=== PATIENT | male | born 1955 | race Caucasian/White ===

== ENCOUNTER 2019-05-30 11:31 | Outpatient (CLI) | payer MEDICAID, SELFPAY ==
[2019-05-30 11:56] LABS: Basophils # 0.2 10^3/uL (0.0-0.1); Basophils % 0.9 %; Eosinophils # 1.8 10^3/uL (0.0-0.8); Eosinophils % 10.3 %; Hematocrit 48.6 % (42.0-52.0); Hemoglobin 14.9 g/dL (11.7-16.6); Lymphocytes # 1.7 10^3/uL (0.8-4.8); Lymphocytes % 10.2 %; Mean Corpuscular HGB Conc 30.7 g/dL (30.0-36.0); Mean Corpuscular Hemoglobin 21.2 pg (28.0-34.0); Monocytes # 1.1 10^3/uL (0.2-0.9); Monocytes % 6.3 %; Neutrophils # 12.2 10^3/uL (1.8-7.7); Neutrophils % 71.5 %; Nucleated Red Blood Cells % 0 %; Platelet Count 725 10^3/cmm (130-400); Red Blood Count 7.04 10^6/uL (4.1-5.3); Red Cell Distribution Width 20.7 % (12.1-15.1)
--- NOTE | 2019-05-30 13:59 | ONC FU_ITS ---
Dr. Sears follow up note Patient: Fransisco Denis Unit #: [id number]: 1955 Dicatated By: Niya Sears M.D.Date of Visit:May 30, 2019 Onc Med Follow-up/Prog Note History of Present Illness: Mr. Fransisco Denis 64-year-old gentleman with history of leukocytosis for 12 years and now with elevated platelet count as well as hematocrit. CBC on 10/14/2016 showed white blood count 14.1 hemoglobin 17.3 hematocrit 50.9 platelet count 516,000 with elevated neutrophil count at 10.4 normal range being 1.4-6.5... Patient said, any time he would go to emergency room for is medical problems , doctors always make comment regarding his high white blood count and prescribe him antibiotics. He got more concerned when he was told about his elevated hematocrit and platelets. he said his brother has polycythemia and on chemotherapy pills and he is worried whether he has same condition. He denies any weight loss, he denies any fever chills, he denies any night sweats or peripheral lymphadenopathy. he denies any chronic sinus problem but has smoker's cough has been smoking 1 pack per day for last 40 years. he denies any hemoptysis or hematemesis. he denies any abdominal fullness. He said recently he was treated for tick bite with doxycycline which he finished 2 weeks course s/p 12 week course of Zepatier and elbavarin plus grazoprevin for hepatitis C. Interim history; patient lost follow-up, moved down to [place] to take care of his elder brother. And then he established his care there in hematology clinic where he was diagnosed with polycythemia vera and treated with phlebotomies on a regular basis as per patient his hematocrit at that time was gone up to 60. And he was getting phlebotomies every 3-4 months and the last one was done about 2 months ago. During his last visit to our clinic in October 2016, JAK2 mutation was ordered and at that time resulted came back positive for mutation which did confirm polycythemia vera. Quit smoking in April 2019. Came for follow-up, complaining of mild shortness of breath and wheezing, patient said in the past nebulizer treatment did help him but now ranout. No fever or chills no cough or sore throat. No headaches or blurred vision or double vision. No cardiac constipation. Also complaining of skin lesion in the back of neck which is a chronic problem and is concerned about skin cancer. Medications: Atorvastatin Calcium 1 Tablet (of 20 mg) Oral daily, EQ Ibuprofen 4 Tablet (of 200 mg) Oral b.i.d., Plavix 1 Tablet (of 75 mg) Oral daily Allergies: No Known Allergies. Review of Systems: Constitutional - Appetite is good, weight is stable. No fever, chills, hot flashes, or night sweats.Energy level is good, ENMT - No sinus congestion or drainage. No mouth sores. No sore throat or difficulty swallowing, Hematologic/Lymphatic - No abnormal bruising or bleeding, Respiratory - No shortness of breath. Positive for cough. No pleuritic pain, Cardiovascular - No angina pain, Gastrointestinal - No nausea or vomiting. No heartburn or acid reflux. No diarrhea or constipation. No blood in the stool or black stools, Genitourinary (M) - No dysuria or hematuria. No urinary frequency. No urgency or incontinence, Musculoskeletal - He has chronic back pain, Neurologic - No headache or dizziness, Psychiatric - No anxiety or depression. No insomnia. Vital Signs: Vitals are not available for this patient. Performance Status: 0 - Fully active, able to carry on all predisease activities without restrictions. (ECOG) Physical Examination: ENMT - . No oral exudates, ulcers, masses, thrush or mucositis. Oropharynx clear. Tongue normal, Respiratory - mild wheezing bilaterally , poor air entry, Cardiovascular - Regular rate and rhythm of heart, Abdomen - Non-tender, non-distended, Good bowel sounds. No guarding or rebound tenderness. No pulsatile masses, Extremities - no edema or rash. Lab/Imaging: Test performed on Mar 25, 2019 13:05 WBC 14.7 10 3/uL RBC 6.72 10 6/uL HGB 13.5 g/dL HCT 44.6 % MCV 66.4 fl MCH 20.1 pg MCHC 30.3 g/dl RDW 19.4 % Platelet Count 730 10 3/cmm MPV 10.6 fl Neutrophils 10.3 10 3/uL Lymphocytes 1.7 10 3/uL Monocytes 0.9 10 3/uL Eosinophils 1.7 10 3/uL Basophils 0.1 10 3/uL Neutrophil % 70.1 % Lymphocyte % 11.3 % Monocyte % 5.8 % Eosinophil % 11.2 % Basophils % 1.0 % Impression: 1.Polycythemia vera JAk2 positive, confirmed in October 2016 at that time patient moved down to [place], and established care in hematology clinic there, where he was treated with phlebotomies every 3-4 month, and as per patient, the last one was done in October 2018, now has moved back to [place]. Leukocytosis with left shift, probably due to infections like hepatitis C or chronic inflammation like peripheral vascular disease involving the right leg or chronic bronchitis/ COPD due to smoking or [id number] medication like androgen containing or idiopathic . lab workup done on 11/07/2016, showed BCR ABL negative LAP score 109 normal being 25 to 130 peripheral blood smear no abnormality seen started on hydroxyurea 500 mg by mouth daily on 05/30/2019 while continue with phlebotomies as needed chronic and heavy smoking smoke 1-2 pack a day for 40 years family history of polycythemia vera 3. Thrombocytosis probably reactive but myeloproliferative disorder cannot be ruled out 4. .Right leg pain/peripheral vascular disease involving the right leg Plain x-ray of the femur, tibia and fibula done on 11/08/2016 showed normal findings no abnormality seen 5. .Hepatitis C on 12 week course of Zepatier,elbavin plus grazoprevin 7. Presumably tick bite status post 2 weeks course of antibiotics with doxycycline 8. Chronic smoker 1-2 pack per day for 40 years 9. COPD 10. .Gallstones Plan: Discussed with patient regarding his labs white blood count 17 hemoglobin 14.9 crit 48.6 platelets 725,000 MCV 69 Clinically, patient is doing reasonably well no signs symptom due to polycythemia vera his follow-up lab shows further increase in hematocrit as patient was out of town for the last 2 months and now phlebotomies done since early last March. Discussed with patient regarding the role of cytoreduction therapy again as patient is going back and forth to [place] and missing phlebotomies. Patient said he will consider cytoreduction therapy with hydroxyurea now. At this point we'll consider starting on hydroxyurea 500 mg by mouth daily. All the side effect possible benefits associated with hydroxyurea including but not limited to mouth sore, bone marrow suppression, peripheral neuropathy, diarrhea, increased risk for skin cancers and in recent cases pulmonary toxicity. Further teaching will be done by chemotherapy nurse. At this point we'll proceed with phlebotomy with 500 mL drawn and 250 mL normal saline replacement and goal is to keep his hematocrit equal to or below 45 and he was also advised to take baby aspirin daily a used to take Plavix but then he is noncompliant. As far as skin lesion in the back of neck is concern, we will send him to general surgeon for evaluation and management. Patient return to clinic in 2 weeks with CBC. And based on that we will adjust his hydroxyurea dose.as far as mild wheezing is concern patient has history of COPD and he used to be on nebulizer. We will try nebulizer treatment hopefully that will help him and patient was advised to see primary care physician for further management. And he was also advised in case there is a worsening of symptoms he need to go to hospital for evaluation. Signed By: Niya Sears M.D. <<Signature on File>>
[2019-05-30] MEDS: ipratropium-albuterol 3 mL Neb INHALATION (14:00)
[2019-05-30] MEDS: sodium chloride 0.9% 250 ML IV (14:15)
== END 2019-05-30 11:32 | disposition home or self-care (01) ==
LOC: ONCMED 11:31
PROVIDERS: Family Provider Internal Medicine; PCP Internal Medicine; Visit Provider Internal Medicine Hematology & Oncology
DX: D45 Polycythemia vera (principal); L98.9 Disorder of the skin and subcutaneous tissue, unspecified; I73.9 Peripheral vascular disease, unspecified; B19.20 Unspecified viral hepatitis C without hepatic coma; J44.9 Chronic obstructive pulmonary disease, unspecified; K80.80 Other cholelithiasis without obstruction; Z79.02 Long term (current) use of antithrombotics/antiplatelets; Z79.899 Other long term (current) drug therapy; Z79.51 Long term (current) use of inhaled steroids; Z87.891 Personal history of nicotine dependence
CPT/HCPCS: 36415; 85025; 99195; 99214; J7050

== ENCOUNTER 2019-06-14 08:17 | Outpatient (CLI) | payer MEDICAID, SELFPAY ==
[2019-06-14 08:52] LABS: Basophils # 0.1 10^3/uL (0.0-0.1); Basophils % 0.8 %; Eosinophils # 1.1 10^3/uL (0.0-0.8); Eosinophils % 7.5 %; Hematocrit 50.1 % (42.0-52.0); Hemoglobin 15.2 g/dL (11.7-16.6); Lymphocytes # 1.4 10^3/uL (0.8-4.8); Lymphocytes % 9.9 %; Mean Corpuscular HGB Conc 30.3 g/dL (30.0-36.0); Mean Corpuscular Hemoglobin 21.2 pg (28.0-34.0); Mean Corpuscular Volume 69.9 fL (80-94); Mean Platelet Volume 10.3 fL (7.4-10.4); Monocytes # 0.8 10^3/uL (0.2-0.9); Monocytes % 5.7 %; Neutrophils # 10.8 10^3/uL (1.8-7.7); Neutrophils % 75.5 %; Nucleated Red Blood Cells % 0 %; Platelet Count 454 10^3/cmm (130-400); Red Blood Count 7.17 10^6/uL (4.1-5.3); Red Cell Distribution Width 21.4 % (12.1-15.1); White Blood Count 14.3 10^3/uL (4.0-10.0)
--- NOTE | 2019-06-14 11:02 | ONC FU_ITS ---
Dr. Sears follow up note Patient: Fransisco Denis Unit #: [id number]: 1955 Dicatated By: Niya Sears M.D.Date of Visit:Jun 14, 2019 Onc Med Follow-up/Prog Note History of Present Illness: Mr. Fransisco Denis 64-year-old gentleman with history of leukocytosis for 12 years and now with elevated platelet count as well as hematocrit. CBC on 10/14/2016 showed white blood count 14.1 hemoglobin 17.3 hematocrit 50.9 platelet count 516,000 with elevated neutrophil count at 10.4 normal range being 1.4-6.5... Patient said, any time he would go to emergency room for is medical problems , doctors always make comment regarding his high white blood count and prescribe him antibiotics. He got more concerned when he was told about his elevated hematocrit and platelets. he said his brother has polycythemia and on chemotherapy pills and he is worried whether he has same condition. He denies any weight loss, he denies any fever chills, he denies any night sweats or peripheral lymphadenopathy. he denies any chronic sinus problem but has smoker's cough has been smoking 1 pack per day for last 40 years. he denies any hemoptysis or hematemesis. he denies any abdominal fullness. He said recently he was treated for tick bite with doxycycline which he finished 2 weeks course s/p 12 week course of Zepatier and elbavarin plus grazoprevin for hepatitis C. Interim history; patient lost follow-up, moved down to [place] to take care of his elder brother. And then he established his care there in hematology clinic where he was diagnosed with polycythemia vera and treated with phlebotomies on a regular basis as per patient his hematocrit at that time was gone up to 60. And he was getting phlebotomies every 3-4 months and the last one was done about 2 months ago. During his last visit to our clinic in October 2016, JAK2 mutation was ordered and at that time resulted came back positive for mutation which did confirm polycythemia vera. Quit smoking in April 2019. Started on hydroxyurea 500 mg daily on 05/30/2019 and continue with phlebotomies to keep hematocrit equal to or less than 45. Came for follow-up, complaining of cough with yellowish phlegm and sinus pressure, mild wheezing still smoking about pack a day. Occasionally low-grade fever. No hemoptysis or hematemesis no nausea or vomiting. No headaches. No melena or hematochezia, no jaundice. Tolerating hydroxyurea 500 mg by mouth daily well and phlebotomies every 2 weeks. Medications: Atorvastatin Calcium 1 Tablet (of 20 mg) Oral daily, EQ Ibuprofen 4 Tablet (of 200 mg) Oral b.i.d., Hydroxyurea 1 Tablet (of 500 mg) Oral b.i.d., Plavix 1 Tablet (of 75 mg) Oral daily Allergies: No Known Allergies. Review of Systems: Review of Systems is not available for this patient. Vital Signs: Vitals are not available for this patient. Performance Status: 0 - Fully active, able to carry on all predisease activities without restrictions. (ECOG) Physical Examination: ENMT - No oral exudates, ulcers, masses, thrush or mucositis. Oropharynx clear. Tongue normal, Respiratory - mild wheezing bilaterally, poor air entry, Cardiovascular - Regular rate and rhythm of heart, Abdomen - Non-tender, non-distended,Good bowel sounds. No guarding or rebound tenderness. No pulsatile masses, Extremities - no edema. Lab/Imaging: Test performed on May 30, 2019 11:35 WBC 17.0 10 3/uL RBC 7.04 10 6/uL HGB 14.9 g/dL HCT 48.6 % MCV 69.0 fL MCH 21.2 pg MCHC 30.7 g/dL RDW 20.7 % Platelet Count 725 10 3/cmm MPV 10.0 fL Neutrophils 12.2 10 3/uL Lymphocytes 1.7 10 3/uL Monocytes 1.1 10 3/uL Eosinophils 1.8 10 3/uL Basophils 0.2 10 3/uL Neutrophil % 71.5 % Lymphocyte % 10.2 % Monocyte % 6.3 % Eosinophil % 10.3 % Basophils % 0.9 % Impression: 1.Polycythemia vera JAk2 positive, confirmed in October 2016 at that time patient moved down to [place], and established care in hematology clinic there, where he was treated with phlebotomies every 3-4 month, and as per patient, the last one was done in October 2018, now has moved back to [place]. Leukocytosis with left shift, probably due to infections like hepatitis C or chronic inflammation like peripheral vascular disease involving the right leg or chronic bronchitis/ COPD due to smoking or [id number] medication like androgen containing or idiopathic . lab workup done on 11/07/2016, showed BCR ABL negative LAP score 109 normal being 25 to 130 peripheral blood smear no abnormality seen started on hydroxyurea 500 mg by mouth daily on 05/30/2019 while continue with phlebotomies as needed chronic and heavy smoking smoke 1-2 pack a day for 40 years family history of polycythemia vera 3. Thrombocytosis probably reactive but myeloproliferative disorder cannot be ruled out 4. .Right leg pain/peripheral vascular disease involving the right leg Plain x-ray of the femur, tibia and fibula done on 11/08/2016 showed normal findings no abnormality seen 5. .Hepatitis C on 12 week course of Zepatier,elbavin plus grazoprevin 7. Presumably tick bite status post 2 weeks course of antibiotics with doxycycline 8. Chronic smoker 1-2 pack per day for 40 years 9. COPD 10. .Gallstones Plan: Discussed with patient regarding his labs white blood count 14.3 hemoglobin 15.2 crit 50.1, platelets 454,000 compared to 725,000 on 05/30/2019, now on hydroxyurea. Clinically, patient is doing reasonably well now complaining of upper respiratory infection related symptoms and progressive mild wheezing, patient continued to smoke. At this point we will start him on Augmentin 500 mg twice a day for 1 week along with Medrol Dosepak, patient was advised in case there is a worsening of symptoms and will have to go to hospital for evaluation. In the meantime continue with phlebotomy with 500 mL and 250 mL normal saline replacement. Patient is tolerating hydroxyurea 500 mg by mouth daily and follow-up labs done today shows normalization of thrombocytosis and improvement in leukocytosis. We'll continue to monitor return to clinic in 2 weeks for phlebotomy and I will see him back in one month with CBC.Patient was advised to quit smoking and he was offered any assistance he may need. Signed By: Niya Sears M.D. <<Signature on File>>
== END 2019-06-14 08:18 | disposition home or self-care (01) ==
LOC: ONCMED 08:17
PROVIDERS: Family Provider Internal Medicine; PCP Internal Medicine; Visit Provider Internal Medicine Hematology & Oncology
DX: D45 Polycythemia vera (principal); D47.3 Essential (hemorrhagic) thrombocythemia; J44.9 Chronic obstructive pulmonary disease, unspecified; Z79.899 Other long term (current) drug therapy; Z86.19 Personal history of other infectious and parasitic diseases; Z87.891 Personal history of nicotine dependence
CPT/HCPCS: 85025; 99195; 99214

== ENCOUNTER 2019-07-01 12:27 | Outpatient (CLI) | payer MEDICAID, SELFPAY ==
[2019-07-01 12:52] LABS: Basophils # 0.1 10^3/uL (0.0-0.1); Basophils % 1.2 %; Eosinophils # 0.8 10^3/uL (0.0-0.8); Eosinophils % 7.1 %; Hemoglobin 13.2 g/dL (11.7-16.6); Lymphocytes # 1.5 10^3/uL (0.8-4.8); Lymphocytes % 13.7 %; Mean Corpuscular Hemoglobin 21.1 pg (28.0-34.0); Mean Corpuscular Volume 70.4 fL (80-94); Monocytes # 0.6 10^3/uL (0.2-0.9); Monocytes % 5.1 %; Neutrophils % 72.4 %; Nucleated Red Blood Cells % 0 %; Platelet Count 355 10^3/cmm (130-400); Red Blood Count 6.25 10^6/uL (4.1-5.3); Red Cell Distribution Width 22.7 % (12.1-15.1)
== END 2019-07-01 12:28 | disposition home or self-care (01) ==
LOC: ONCMED 12:29
PROVIDERS: Family Provider Internal Medicine; PCP Internal Medicine; Visit Provider Internal Medicine Hematology & Oncology
DX: D45 Polycythemia vera (principal)
CPT/HCPCS: 85025

== ENCOUNTER → 2019-07-08 12:35 | Outpatient (BNVA) | payer MEDICAID, SELFPAY | PROVIDERS: Family Provider Internal Medicine; PCP Internal Medicine; Visit Provider Nurse Practitioner Family | DX: R05 Cough (principal); R06.02 Shortness of breath | CPT/HCPCS: 71046 ==

== ENCOUNTER 2019-07-08 15:04 | Emergency (ER) | payer MEDICAID, SELFPAY | END 2019-07-08 23:53 | disposition admitted as inpatient to this hospital (09) | LOC: ER 07-18 16:53 | PROVIDERS: Emergency Provider Family Medicine; Family Provider Internal Medicine; PCP Internal Medicine | DX: Z76.89 Persons encountering health services in other specified circumstances (principal) | CPT/HCPCS: 12345; 36415; 71046; 71260; 80053; 81001; 83605; 85025; 86403; 87400; 87449; 96365; 96367; 96375; 96376; 99282; 99285; A9270; J0696; J2270; J7030; Q9967 ==

== ENCOUNTER 2019-07-08 15:04 | Inpatient (IN) | payer MEDICAID, SELFPAY ==
[2019-07-08 15:05] VITALS: BMI 25.4
[2019-07-08 15:10] VITALS: BP 110/86; PULSE 102; RESP 18; TEMP 37.5; O2SAT 97
--- NOTE | 2019-07-08 15:20 | ED_ITS ---
Entered by Indy Rahman, acting as scribe for Rebecca Marshall MD, [facility] [place] HPI - General Adult General: Chief complaint: General Medical Stated complaint: COUGH FEVER Time Seen by Provider: 07/08/19 15:17 Source: patient Mode of arrival: EMS Limitations: no limitations History of Present Illness: HPI narrative: 64 yo Male presents to ED with complaint of cough, fever, chills, weakness, and neck pain. Pt states that he has been sick for about 8 weeks and was hoping it would get better. Pt states that he hasn't been taking his temperature. Pt states that ibuprofen has been bringing his fever down. Pt states that he thought that he might have herrera virus. Pt states that he was told that he didn't have it because it has lasted 8 weeks but then the head of the CDC came out and said that in someone with a compromised immune system, it could last 12-18 weeks. Pt states that he has been taking medication to treat his polycythemia which is lowering his immune system. Pt states that he also has pain in his neck and that it is bone on bone and the coughing is making the pain unbearable. Pt states that his ears have felt clogged and had a gurgling when he blows his nose. complaint: cough, fever, chills, weakness, neck pain Onset (ago): week(s) (8) Location: neck and chest Radiation: non-radiation Severity scale (1-10): 9 Quality: constant Pain Consistency: constant Relieving factors: none Exacerbating factors: none Associated symptoms: Reports cough, dyspnea, fevers/chills, short of breath and weakness; Deny chest pain, headache(s), nausea, rash, palpitations or vomiting Treatments prior to arrival: NSAID Review of Systems General: Reports: 10 or more systems reviewed and unremarkable except in HPI and below Const: Reports: fever and chills; Denies: body aches Eyes: Denies: change in vision or blurry vision ENMT: Reports: Change in hearing and nasal congestion; Denies: throat pain, enlarged tonsils, painful swallowing, hoarseness, mouth pain or swelling of lips/tongue Card: Denies: chest pain, palpitations, irregular heart rhythm, edema or swelling of feet/ankles Resp: Reports: shortness of breath, productive cough and chest congestion; Denies: non-productive cough GI: Denies: abdominal pain, nausea or vomiting : Denies: flank pain, painful urination, urinary frequency, urinary urgency or urinary hesitancy Musc: Denies: neck pain, back pain or extremity swelling Skin/Breast: Denies: rash, itching or redness Neuro: Denies: headache, numbness in extremities or weakness in extremities Endo: Denies: excessive urination, excessive thirst or tired all the time PFSH ED PFSH: Medical History History of basal cell carcinoma (BCC) Hyperlipidemia Polycythemia Skin lesion Surgical History History of hemiarthroplasty of shoulder History of local excision of skin lesion 2X Status post appendectomy Family History Denies family history of Anesthesia complication Bleeding disorder Social History Smoking and tobacco status: former smoker Quit status (tobacco): has tried quititng Second hand smoke exposure: No Alcohol intake: current Alcohol intake frequency: holidays/special occasions only Alcohol type: beer Adopted: No Caregiver/support person: Yes Lives independently: Yes Household members: none Housing: House Marital status: Legally service: Yes Current occupational status: disabled Current occupational exposures/hazards: No Pets and animals: No History of recent travel: No Sexually active: No Current gender identity: Male Adrianne/Scientology: Taoism Special adrianne needs: No Agree to transfusion: No Financial difficulty paying for basics: Decline to Answer Physical Exam Const: COMMON NORMALS: no apparent distress, average body habitus, oriented x3, no limitations, healthy appearing, alert and well nourished HENMT: COMMON NORMALS: normocephalic, head/scalp atraumatic and moist oral mucous membranes HEAD & SCALP: normocephalic and atraumatic Eye: COMMON NORMALS: PERRL, EOMs intact bilaterally, conjunctivae normal and no scleral icterus CONJUNCTIVA: Yes conjunctivae normal PUPIL: Yes PERRL Neck/C-Spine: COMMON NORMALS: full ROM, supple, no meningeal signs, no JVD and no carotid bruits Chest: COMMONS NORMALS: inspection of chest normal and palpation of chest normal Resp: COMMON NORMALS: normal respiratory effort, no retractions, no use of accessory muscles, clear to auscultation bilaterally and percussion normal AUSCULTATION: clear to auscultation bilaterally PERCUSSION: percussion normal Cardio: COMMON NORMALS: no JVD, regular rate, regular rhythm, S1 normal heart sound, S2 normal heart sound, no gallops, no clicks, no murmurs, no rub and peripheral pulses 2+ throughout RATE: regular rate RHYTHM: regular rhythm HEART SOUNDS: S1 normal and S2 normal PERIPHERAL PULSES: pulses 2+ throughout GI: COMMON NORMALS: normal to inspection, nondistended, normoactive bowel sounds, soft to palpation, non-tender, no hepatosplenomegaly, no masses and no bruits PALPATION: Yes soft and Yes no hepatosplenomegaly : COMMON NORMALS: Yes no CVA tenderness BLADDER/KIDNEY EXAM: Yes no CVA tenderness Back/Pelvis: COMMON NORMALS: no CVA tenderness Extremity: COMMON NORMALS: normal to inspection, full ROM, normal capillary refill, no calf tenderness and no pedal edema Neuro: COMMON NORMALS: oriented x3 SENSORIUM/ORIENTATION: Yes alert MENINGEAL SIGNS: Yes no meningeal signs Skin: COMMON NORMALS: no rashes or lesions noted, no wounds, skin turgor normal, no jaundice, no petechiae and no mottling GENERAL SKIN EXAM: no rashes or lesions noted and turgor normal Course Consultations: Consultation #1: Dr. Saleh, hospitalist. She kindly accepted the patient to her service. Vital Signs: Vital signs: Vital Signs Temperature 99.5 F 07/08/19 15:10 Pulse Rate 96 07/08/19 23:52 Respiratory Rate 27 H 07/08/19 23:52 Blood Pressure 118/75 07/08/19 23:52 Pulse Oximetry 97 07/08/19 23:52 MDM - General Adult MDM Narrative: Medical decision making narrative: 64-year-old male with polycythemia vera who is also on hydroxyurea for the same. Oncologist is Dr. Sears. He presents to the emergency department with complaints of shortness of breath and cough that have been ongoing for about 8 weeks. In the ED evaluation shows a left lower lobe pneumonia. He is admitted for further evaluation and management. He was also hypoxic in the emergency department necessitating oxygen. He does not use oxygen at home. Medical Records: Attestation: I reviewed the patient's medical records. Lab Data: Attestation: I reviewed the patient's lab results. Labs: Lab Results 07/08/19 07/08/19 07/08/19 Range/Units 16:20 16:20 16:20 WBC 20.0 H (4.0-10.0) 10^3/ uL RBC 6.40 H (4.1-5.3) 10^6/u L Hgb 14.0 (11.7-16.6) g/dL Hct 45.3 (42.0-52.0) % MCV 70.8 L (80-94) fL MCH 21.9 L (28.0-34.0) pg MCHC 30.9 (30.0-36.0) g/dL RDW 23.7 H (12.1-15.1) % Plt Count 436 H (130-400) 10^3/c mm MPV 9.5 (7.4-10.4) fL Neut % (Auto) 80.8 % Lymph % (Auto) 7.8 % Lumpkin % (Auto) 7.2 % Eos % (Auto) 2.8 % Baso % (Auto) 0.8 % Neut # (Auto) 16.1 H (1.8-7.7) 10^3/u L Lymph # (Auto) 1.6 (0.8-4.8) 10^3/u L Lumpkin # (Auto) 1.4 H (0.2-0.9) 10^3/u L Eos # (Auto) 0.6 (0.0-0.8) 10^3/u L Baso # (Auto) 0.2 H (0.0-0.1) 10^3/u L Nucleated RBC % (a uto) 0 % Nucleated RBCs # 0.0 /100WBC Sodium 133 L (136-145) mmol/L Potassium 4.3 (3.5-5.1) mmol/L Chloride 98 (98-107) mmol/L Carbon Dioxide 21 L (22-29) mmol/L Anion Gap 18.3 (5-19) BUN 18 (8-23) mg/dL Creatinine 0.9 (0.7-1.2) mg/dL GFR Calculation 85.2 L (90-130) mL/min Glucose 104 (65-115) mg/dL Calculated Osmolal ity 273 L (285-295) mOsm/k g Lactate 1.4 (0.5-2.2) mmol/L Calcium 9.5 (8.5-10.5) mg/dL Total Bilirubin 0.8 (0.15-1.2) mg/dL AST 13 (0-40) U/L ALT 11 (0-41) U/L Alkaline Phosphata se 124 (40-130) IU/L Total Protein 7.8 (6.6-8.7) g/dL Albumin 4.4 (3.5-5.2) g/dL Globulin 3.4 (1.3-4.6) g/dL Urine Color (Yellow) Urine Appearance (CLEAR) Urine pH (5-7) Ur Specific Gravit y (1.005-1.030) Urine Protein (Negative) Urine Glucose (UA) (Normal) Urine Ketones (Negative) Urine Blood (Negative) Urine Nitrate (Negative) Urine Bilirubin (NEGATIVE) Urine Urobilinogen (Negative) mg/dL Ur Leukocyte Tori ase (Negative) Urine RBC (0-2) /hpf Urine WBC (0-5) /hpf Ur Squamous Epith Cells (0-5) Urine Bacteria (NONE) Urine Mucus 07/08/19 Range/Units 18:27 WBC (4.0-10.0) 10^3/ uL RBC (4.1-5.3) 10^6/u L Hgb (11.7-16.6) g/dL Hct (42.0-52.0) % MCV (80-94) fL MCH (28.0-34.0) pg MCHC (30.0-36.0) g/dL RDW (12.1-15.1) % Plt Count (130-400) 10^3/c mm MPV (7.4-10.4) fL Neut % (Auto) % Lymph % (Auto) % Lumpkin % (Auto) % Eos % (Auto) % Baso % (Auto) % Neut # (Auto) (1.8-7.7) 10^3/u L Lymph # (Auto) (0.8-4.8) 10^3/u L Lumpkin # (Auto) (0.2-0.9) 10^3/u L Eos # (Auto) (0.0-0.8) 10^3/u L Baso # (Auto) (0.0-0.1) 10^3/u L Nucleated RBC % (a uto) % Nucleated RBCs # /100WBC Sodium (136-145) mmol/L Potassium (3.5-5.1) mmol/L Chloride (98-107) mmol/L Carbon Dioxide (22-29) mmol/L Anion Gap (5-19) BUN (8-23) mg/dL Creatinine (0.7-1.2) mg/dL GFR Calculation (90-130) mL/min Glucose (65-115) mg/dL Calculated Osmolal ity (285-295) mOsm/k g Lactate (0.5-2.2) mmol/L Calcium (8.5-10.5) mg/dL Total Bilirubin (0.15-1.2) mg/dL AST (0-40) U/L ALT (0-41) U/L Alkaline Phosphata se (40-130) IU/L Total Protein (6.6-8.7) g/dL Albumin (3.5-5.2) g/dL Globulin (1.3-4.6) g/dL Urine Color Dark yellow (Yellow) Urine Appearance Sl hazy (CLEAR) Urine pH 5 (5-7) Ur Specific Gravit y 1.020 (1.005-1.030) Urine Protein Neg (Negative) Urine Glucose (UA) Norm (Normal) Urine Ketones 1+ H (Negative) Urine Blood Neg (Negative) Urine Nitrate Negative (Negative) Urine Bilirubin 1+ H (NEGATIVE) Urine Urobilinogen 1 H (Negative) mg/dL Ur Leukocyte Tori ase Negative (Negative) Urine RBC None (0-2) /hpf Urine WBC 0-4 H (0-5) /hpf Ur Squamous Epith Cells None (0-5) Urine Bacteria None (NONE) Urine Mucus Trace Imaging Data^: CXR: Radiologist's impression: [address] [address] XRay Report Signed Patient: French Denis #: [id number] : 1955cct#:[id number] Age/Sex: 64 / MADM Date: 07/08/19 Loc: ERRoom/Bed: Attending Dr: Ordering Provider/Ordering MD: Rebecca Marshall MD, [facility] [place] Date of Service: 07/08/19 Procedure(s): XR chest 2V* [id number] Accession Number(s): [id number] Report Number: [id number] WS: [id number] XR chest 2V* [id number] REASON FOR EXAM: Cough, SOB FINDINGS: A hiatal hernia is present. The heart is small no active processes. The lung zaidi are well aerated no pneumonia, pleural effusion, pulmonary edema, or mass effect. XR/XR chest 2V* [id number] IMPRESSION: Hiatal hernia Negative chest Dictated By:Justin Michele DO Signed By:Justin Michele DOSigned Date/Time:07/08/19 1641 DD/ 1640 CT Chest: Radiologist's impression: [place] [address] CT Scan Report Signed Patient: French Denis #: [id number] : 1955cct#:[id number] Age/Sex: 64 / MADM Date: 07/08/19 Loc: ERRoom/Bed: Attending Dr: Ordering Provider/Ordering MD: Rebecca Marshall MD, [facility] [place] Date of Service: 07/08/19 Procedure(s): CT chest w con* [id number] Accession Number(s): [id number] Report Number: [id number] PROCEDURE INFORMATION: Exam: CT Chest With Contrast Exam date and time: 07/08/2019 8:08 PM Age: 64 years old Clinical indication: Cough and fever and shortness of breath; Additional info: SOB TECHNIQUE: Imaging protocol: Computed tomography of the chest with intravenous contrast. Total DLP: 903.9 mGy-cm Radiation optimization: All CT scans at this facility use at least one of these dose optimization techniques: automated exposure control; mA and/or kV adjustment per patient size (includes targeted exams where dose is matched to clinical indication); or iterative reconstruction. Contrast material: VISI; Contrast volume: 95 ml; Contrast route: 18G; COMPARISON: CR XR chest 2V* [id number] 07/08/2019 4:27 PM FINDINGS: Lungs: Small subpleural pulmonary nodule lateral segment right middle lobe measuring only 6 mm. Series 3, image 45. Bilobed pulmonary nodule superior segment lingula measuring 11 mm x 8 mm. Series 3, image 39. Series 601, image 16. There other very tiny subpleural pulmonary nodules measuring under 4 mm identified. For patients at low risk (minimal or absent history of smoking and of other known risk factors), recommend CT at 3-6 months, then consider CT at 18-24 months. For patients at high risk (history of smoking or of other known risk factors), recommend CT at 3-6 months, then CT at 18-24 months. (Lylahomarissa, et al., Fleischner Society, 2017). Evidence of antecedent granulomatous disease to include a tiny calcified histo plasma left lower lobe series 3, image 42. Segmental left lower lobe pneumonitis/pneumonia. Mild centrilobular emphysema. Pleural space: Unremarkable. No pneumothorax. No pleural effusion. Heart: Unremarkable. No cardiomegaly. No pericardial effusion. Aorta: The thoracic aorta is nonaneurysmal. Minimal arterial sclerotic disease. Lymph nodes: Few small mediastinal lymph nodes most likely reactive. Gallbladder and bile ducts: Solitary gallstone measuring 20 mm. No intra or extrahepatic biliary ectasia. Splenomegaly at 16 cm. Remainder of the upper abdominal structures unremarkable. Bones/joints: No visible active musculoskeletal pathology. Antecedent superior endplate deformity of mild depression T4. Mild degenerative disease. No visible osteolytic or osteoblastic destructive process. Soft tissues: Unremarkable. CT/CT chest w con* [id number] IMPRESSION: 1. Left lower lobe pneumonitis/pneumonia. 2. Multiple small pulmonary nodules, the dominant superior segment lingula, dimensions 11 mm x 8 mm. For patients at low risk (minimal or absent history of smoking and of other known risk factors), recommend CT at 3-6 months, then consider CT at 18-24 months. For patients at high risk (history of smoking or of other known risk factors), recommend CT at 3-6 months, then CT at 18-24 months. (Lylahomarissa, et al., Fleischner Society, 2017). 3. Solitary gallstone measuring 20 mm. 4. Splenomegaly. 5. Evidence of antecedent granulomatous disease. Radiation Dose CTDIVOL = (mGy): DLP = 903.9 (mGy-cm) Dictated By:Malcolm Huynh Signed By:Malcolm HuynhSigned Date/Time:07/08/192218 DD/ 16 Discharge Plan Discharge Patient Disposition: Admitted As Inpatient Admit Provider: Marilyn Saleh Clinical Impression: Hypoxia, Left lower lobe pneumonia Condition: Stable Interventions: ED Discharge Assessment Last Done: 07/08/19 23:52 Discharge Date/Time: 07/08/19 23:53 Coding Level of Care Code ED Jewelry Polisher for Chg Fwd Exam Comprehensive The documentation recorded by the Josiah freedman Carmen, accurately reflects the service I personally performed and the decisions made by Rolando harrison Adegoke I, MD, [facility] [place] Jul 08, 2019 15:04
--- NOTE | 2019-07-08 16:17 | XR_ITS ---
WS: [id number] XR chest 2V* [id number] REASON FOR EXAM: Cough, SOB FINDINGS: A hiatal hernia is present. The heart is small no active processes. The lung zaidi are well aerated no pneumonia, pleural effusion, pulmonary edema, or mass effect. XR/XR chest 2V* [id number] IMPRESSION: Hiatal hernia Negative chest
[2019-07-08 16:37] LABS: Basophils # 0.2 10^3/uL (0.0-0.1); Basophils % 0.8 %; Eosinophils # 0.6 10^3/uL (0.0-0.8); Eosinophils % 2.8 %; Hematocrit 45.3 % (42.0-52.0); Lymphocytes # 1.6 10^3/uL (0.8-4.8); Lymphocytes % 7.8 %; Mean Corpuscular HGB Conc 30.9 g/dL (30.0-36.0); Mean Corpuscular Hemoglobin 21.9 pg (28.0-34.0); Mean Corpuscular Volume 70.8 fL (80-94); Mean Platelet Volume 9.5 fL (7.4-10.4); Monocytes # 1.4 10^3/uL (0.2-0.9); Monocytes % 7.2 %; Neutrophils # 16.1 10^3/uL (1.8-7.7); Neutrophils % 80.8 %; Nucleated Red Blood Cells % 0 %; Platelet Count 436 10^3/cmm (130-400); Red Cell Distribution Width 23.7 % (12.1-15.1)
[2019-07-08 16:39] VITALS: RESP 18
[2019-07-08] MEDS: sodium chloride 0.9% 1,000 ML 999 ML IV (16:39)
[2019-07-08] MEDS: morphine 4 mg/mL SDV 1 mL IVP ×2 (16:39→21:03)
[2019-07-08 16:54] LABS: Lactate (Lactic Acid level) 1.4 mmol/L (0.5-2.2)
[2019-07-08 16:56] LABS: Alanine Aminotransferase 11 U/L (0-41); Albumin Level 4.4 g/dL (3.5-5.2); Alkaline Phosphatase 124 IU/L (40-130); Anion Gap 18.3 (5-19); Aspartate Amino Transferase 13 U/L (0-40); Blood Urea Nitrogen 18 mg/dL (8-23); Calcium 9.5 mg/dL (8.5-10.5); Carbon Dioxide 21 mmol/L (22-29); Chloride 98 mmol/L (98-107); Globulin 3.4 g/dL (1.3-4.6); Glomerular Filtration Rate 85.2 mL/min (90-130); Glucose 104 mg/dL (65-115); Osmolality Calculated 273 mOsm/kg (285-295); Potassium 4.3 mmol/L (3.5-5.1); Sodium 133 mmol/L (136-145); Total Bilirubin 0.8 mg/dL (0.15-1.2); Total Protein 7.8 g/dL (6.6-8.7)
[2019-07-08 19:15] LABS: Add Urine Microscopic? YES; Bilirubin Urine 1+ (NEGATIVE); Blood Urine Neg (Negative); Glucose Urine UA Norm (Normal); Ketones Urine 1+ (Negative); Leukocyte Esterase Urine Negative (Negative); Nitrate Urine Negative (Negative); Protein Urine Neg (Negative); Urine Appearance SL Hazy (CLEAR); Urine Color Dark Yellow (Yellow); Urobilinogen Urine 1 mg/dL (Negative); pH Urine 5 (5-7)
[2019-07-08 19:17] LABS: Mucus Urine TRACE; WBC Urine 0-4 /hpf (0-5)
--- NOTE | 2019-07-08 20:08 | CTR_ITS ---
PROCEDURE INFORMATION: Exam: CT Chest With Contrast Exam date and time: 07/08/2019 8:08 PM Age: 64 years old Clinical indication: Cough and fever and shortness of breath; Additional info: SOB TECHNIQUE: Imaging protocol: Computed tomography of the chest with intravenous contrast. Total DLP: 903.9 mGy-cm Radiation optimization: All CT scans at this facility use at least one of these dose optimization techniques: automated exposure control; mA and/or kV adjustment per patient size (includes targeted exams where dose is matched to clinical indication); or iterative reconstruction. Contrast material: VISI; Contrast volume: 95 ml; Contrast route: 18G; COMPARISON: CR XR chest 2V* [id number] 07/08/2019 4:27 PM FINDINGS: Lungs: Small subpleural pulmonary nodule lateral segment right middle lobe measuring only 6 mm. Series 3, image 45. Bilobed pulmonary nodule superior segment lingula measuring 11 mm x 8 mm. Series 3, image 39. Series 601, image 16. There other very tiny subpleural pulmonary nodules measuring under 4 mm identified. For patients at low risk (minimal or absent history of smoking and of other known risk factors), recommend CT at 3-6 months, then consider CT at 18-24 months. For patients at high risk (history of smoking or of other known risk factors), recommend CT at 3-6 months, then CT at 18-24 months. (Stepan et al., Fleischner Society, 2017). Evidence of antecedent granulomatous disease to include a tiny calcified histo plasma left lower lobe series 3, image 42. Segmental left lower lobe pneumonitis/pneumonia. Mild centrilobular emphysema. Pleural space: Unremarkable. No pneumothorax. No pleural effusion. Heart: Unremarkable. No cardiomegaly. No pericardial effusion. Aorta: The thoracic aorta is nonaneurysmal. Minimal arterial sclerotic disease. Lymph nodes: Few small mediastinal lymph nodes most likely reactive. Gallbladder and bile ducts: Solitary gallstone measuring 20 mm. No intra or extrahepatic biliary ectasia. Splenomegaly at 16 cm. Remainder of the upper abdominal structures unremarkable. Bones/joints: No visible active musculoskeletal pathology. Antecedent superior endplate deformity of mild depression T4. Mild degenerative disease. No visible osteolytic or osteoblastic destructive process. Soft tissues: Unremarkable. CT/CT chest w con* [id number] IMPRESSION: 1. Left lower lobe pneumonitis/pneumonia. 2. Multiple small pulmonary nodules, the dominant superior segment lingula, dimensions 11 mm x 8 mm. For patients at low risk (minimal or absent history of smoking and of other known risk factors), recommend CT at 3-6 months, then consider CT at 18-24 months. For patients at high risk (history of smoking or of other known risk factors), recommend CT at 3-6 months, then CT at 18-24 months. (Stepan et al., Fleischner Society, 2017). 3. Solitary gallstone measuring 20 mm. 4. Splenomegaly. 5. Evidence of antecedent granulomatous disease. Radiation Dose CTDIVOL = (mGy): DLP = 903.9 (mGy-cm)
[2019-07-08 21:03] VITALS: RESP 19; O2SAT 96
[2019-07-08] MEDS: iohexol 300 mg/mL 100 mL Btl IV (21:53)
[2019-07-08 22:02] VITALS: BP 133/78; PULSE 92; RESP 24; O2SAT 97
[2019-07-08] MEDS: cefTRIAXone 1,000 MG in sodium chloride 0.9% (plus) 50 ML 100 MG IV (22:43)
[2019-07-08] MEDS: azithromycin 500 MG in sodium chloride 0.9% 250 ML 250 MG IV (23:20)
[2019-07-08 23:52] VITALS: BP 118/75; PULSE 96; RESP 27; O2SAT 97
[2019-07-09] VITALS (14 sets, daily range): BP systolic 92–130; BP diastolic 50–82; PULSE 93–139; RESP 15–26; TEMP 36.7–38.9; O2SAT 92–96
--- NOTE | 2019-07-09 01:59 | ECG_ITS ---
Measurements Intervals [place] Rate: 102 P: MD: 0 QRS: -67 QRSD: 100 T: 60 QT: 331 QTc: 433 SINUS TACHYCARDIA LEFT ANTERIOR FASCICULAR BLOCK [QRS AXIS <= -45, QR IN I, RS IN II] No previous ECG available for comparison Electronically Signed On 07-09-2019 17:49:19 CDT by Fernanda Mcdaniel M.D. [email or web address]
--- NOTE | 2019-07-09 02:37 | PM.HP ---
Providers/Chief Complaint Admitting Physician: Marilyn Saleh MD Primary Care Provider: Renan Elmore MD Chief Complaint: COUGH FEVER History of Present Illness Fransisco Denis is a 64 year old male with polycythemia vera currently on treatment with hydroxurea 500 mg daily since 05/30/2019 and phlebotomies every 2 weeks. He has been experiencing productive cough consistently seen at least since middle of May which has increased in intensity and frequency during this time. Over the past month, it has tended to become more productive with greenish colored sputum. Also noted fullness in ears and sinuses. c/o dyspnea and musculoskeletal pain during bouts of cough, but otherwise no exertional dyspnea. No swelling in extremities. ROS+ for subjective chills lasting > 1 month at this point. Through this period, he has received rx with augmentin on jun 14 without change in symptoms. Was noted to be wheezing at his appointment on that day with similar complaints. It appears patient had been transiently hypoxic upon presentation to the Ed with 02 sat 80% on RA at one point for which he underwent CTA chest. Study negative for PE but showed Left lower lobe pneumonitis/pneumonia. H/o sick contacts [address] of friends with URI symptoms (lives with them) Last travelled to [place] and [place] in early may. No travle since then. No other sick contacts. Sick friends have not recently travelled. Him and his PCP had called the [facility] line due to concern for COVID 19, however was told he does not meet criteria and no further testing in this regard was recommended. Review of Systems General: Reports: 10 or more systems reviewed and unremarkable except in HPI and below Const: Reports: chills and body aches; Denies: fever Eyes: Denies: change in vision, blurry vision or photophobia ENMT: Reports: nasal congestion; Denies: throat pain, enlarged tonsils, painful swallowing or hoarseness Card: Denies: chest pain, palpitations, irregular heart rhythm, edema, swelling of feet/ankles, lightheadedness, pre-syncope, shortness of breath on exertion or shortness of breath when lying down Resp: Reports: productive cough and wheezing; Denies: shortness of breath, non-productive cough, stridor, pain on inspiration, change in phlegm color, coughing up blood or chest congestion GI: Denies: abdominal pain, nausea, vomiting, vomiting blood, coffee grounds in vomit, difficulty swallowing, heartburn/indigestion, diarrhea, constipation, cramping, change in stool character, blood in stool or black tarry stool : Denies: flank pain, painful urination, urinary frequency, urinary urgency, urinary hesitancy or blood in urine Musc: Denies: neck pain, back pain, extremity pain, joint swelling, joint warmth or deformity Neuro: Denies: headache, numbness in extremities, weakness in extremities, changes in sensation, difficulty walking, frequent falls, dizziness, vertigo, behavioral changes, slurred speech or seizure-like activity Psych: Denies: anxiety, depression, suicidal ideation or homicidal ideation Endo: Denies: excessive urination, excessive thirst, tired all the time, cold intolerance or hot flashes Lawson/Lymph: Denies: easy bruising or easy bleeding Medications/Allergies Home Medications Medication Instructions Recorded Confirmed Last Taken Type ibuprofen 800 mg PO Q6H PRN 07/08/19 07/08/19 07/07/19 History Allergies Allergy/AdvReac Type Severity Reaction Status Date / Time No Known Allergies Allergy Verified 07/08/19 15:12 PFSH Acute PFSH: Medical History History of basal cell carcinoma (BCC) Hyperlipidemia Polycythemia Skin lesion Surgical History History of hemiarthroplasty of shoulder History of local excision of skin lesion 2X Status post appendectomy Family History Denies family history of Anesthesia complication Bleeding disorder Social History Smoking and tobacco status: former smoker Quit status (tobacco): has tried quititng Second hand smoke exposure: No Alcohol intake: current Alcohol intake frequency: holidays/special occasions only Alcohol type: beer Adopted: No Caregiver/support person: Yes Lives independently: Yes Household members: none Housing: House Marital status: Legally service: Yes Current occupational status: disabled Current occupational exposures/hazards: No Pets and animals: No History of recent travel: No Sexually active: No Current gender identity: Male Adrianne/Sikhism: Religion Special adrianne needs: No Agree to transfusion: No Financial difficulty paying for basics: Decline to Answer Vitals/I&O/Wt Last Vital Signs Temp 98.2 F 07/09/19 00:00 Pulse 107 H 07/09/19 00:00 Resp 20 H 07/09/19 00:00 BP 130/82 07/09/19 00:00 Pulse Ox 93 07/09/19 00:00 07/08/19 07/08/19 07/09/19 14:59 22:59 06:59 Output Total 200 / 200 Balance -200 / -200 Weight last 48 hrs Weight 75.75 kg Physical Exam Narrative: EXAM NARRATIVE: GEN: Awake, alert and oriented, noted to have multiple bouts of cough during conversation. CVS: S1S2 N RS: B/L scattered wheezing to ausculttaion all areas. Abd: Soft, nt/nd , bs+ POLICE OFFICER: no focal neuro deficits Data : 07/08/19 16:20 07/08/19 16:20 A&P Assessment and plan (1) Left lower lobe pneumonia: Status: Acute Qualifiers: Pneumonia type: due to unspecified organism Qualified Code(s): J18.9 - Pneumonia, unspecified organism Code(s): J18.9 - Pneumonia, unspecified organism (2) Polycythemia vera: Status: Acute Code(s): D45 - Polycythemia vera (3) Sepsis: Status: Acute Code(s): A41.9 - Sepsis, unspecified organism (4) Hypoxia: Status: Acute Code(s): R09.02 - Hypoxemia (5) Thrombocytosis: Status: Acute Code(s): D47.3 - Essential (hemorrhagic) thrombocythemia Additional A&P Information Admit to med/surg Meets sepsis criteria with tachypnea, tachycardia, fever, possible source of infection on CT chest. Leukocytosis may be related to underlying polycythemia. 1. left lower lobe pneumonia on CT chest Empiric Ceftriaxone 1g q24h and azithromycin 500mg x 3 days Urine Legionella and urine streptococcal antigens Duoneb nebulization q4h Cough suppressants given severity leading to MSK symptoms Given chronicity of symptoms and lack of antecedent travel history in him or contacts doubt COVID19 pneumonitis. Testing declined earlier today by state lab 2. H/o COPD, however he denies using any inhalers at home Start duoneb nebulization as above Hold off on steroids for now and monitor for improvement with inhalers 3. sinus tachycardia, reports normally HR 60-70bpm. Place on telemery monitoring Tachycardia may be related to persistent coughing vs sepsis. Clinically appears to be mildly dehydrated IVF NS @ 75cc/hr No past h/o CHF. Denies any current chest pain. 4. hypoxic respiratory failure: Noted to be hypoxic earlier in the ED with sp02 80% on RA. Since my evaluation sp02 93-97% on room air. Ct chest negative for PE 5. polycythemia vera: Hold hydroxyurea for now given active infection. HCT goal ~45, will need f/up with oncology in morning. DVT ppx: lovenox Full code Attestations Medical Necessity Statement*: anticipae >2 midnight admisison for pneumonia, iv antibiotics Coding Level of Care Code Acute Certified Home Health Aide for g Fwd Diagnoses Left lower lobe pneumonia J18.9 Pneumonia type: due to unspecified organism Polycythemia vera D45 Sepsis A41.9 Hypoxia R09.02 Thrombocytosis D47.3
[2019-07-09] MEDS: ipratropium-albuterol 3 mL Neb INHALATION ×2 (03:10→07:55)
[2019-07-09] MEDS: enoxaparin 40 mg/0.4 mL Syringe SUBCUT (03:45)
[2019-07-09] MEDS: guaiFENesin-dextromethorphan UDC 10 mL 5 ML PO (03:46)
[2019-07-09] MEDS: sodium chloride 0.9% 1,000 ML 75 ML IV ×2 (03:46→18:18)
[2019-07-09] MEDS: morphine 4 mg/mL SDV 1 mL 2 MG IVP ×2 (03:57→12:53)
[2019-07-09 05:23] LABS: Basophils # 0.1 10^3/uL (0.0-0.1); Basophils % 0.5 %; Eosinophils # 0.2 10^3/uL (0.0-0.8); Eosinophils % 1.5 %; Hematocrit 40.2 % (42.0-52.0); Hemoglobin 12.4 g/dL (11.7-16.6); Lymphocytes # 0.9 10^3/uL (0.8-4.8); Lymphocytes % 6.1 %; Mean Corpuscular HGB Conc 30.8 g/dL (30.0-36.0); Mean Corpuscular Volume 71.3 fL (80-94); Mean Platelet Volume 9.4 fL (7.4-10.4); Monocytes # 0.8 10^3/uL (0.2-0.9); Monocytes % 5.6 %; Neutrophils # 12.6 10^3/uL (1.8-7.7); Neutrophils % 85.5 %; Nucleated Red Blood Cells % 0 %; Platelet Count 356 10^3/cmm (130-400); Red Blood Count 5.64 10^6/uL (4.1-5.3); Red Cell Distribution Width 23.2 % (12.1-15.1); White Blood Count 14.7 10^3/uL (4.0-10.0)
[2019-07-09 05:44] LABS: Anion Gap 14.8 (5-19); Blood Urea Nitrogen 15 mg/dL (8-23); Calcium 8.9 mg/dL (8.5-10.5); Carbon Dioxide 20 mmol/L (22-29); Chloride 99 mmol/L (98-107); Glomerular Filtration Rate 67.6 mL/min (90-130); Glucose 115 mg/dL (65-115); Osmolality Calculated 267 mOsm/kg (285-295); Potassium 3.8 mmol/L (3.5-5.1); Sodium 130 mmol/L (136-145)
[2019-07-09] MEDS: acetaminophen 325 mg Tablet 650 MG PO (05:53)
[2019-07-09 06:30] LABS: Thyroid Stimulating Hormone 2.06 uIU/mL (0.27-4.20)
[2019-07-09 06:31] LABS: NT Pro B Type Natriuretic Pept 52 pg/mL (0-125); Procalcitonin 0.09 ng/mL (0-0.5)
[2019-07-09] MEDS: benzonatate 100 mg Capsule PO ×3 (09:36→19:49)
[2019-07-09] MEDS: clopidogrel 75 mg Tablet PO (09:36)
[2019-07-09] MEDS: azithromycin 250 mg Tablet 500 MG PO (09:36)
--- NOTE | 2019-07-09 11:22 | PC.CHAP ---
Pastoral Care Encounter/Spiritual Assessment Type of Contact [] Declined financial advisor visit [] Patient/Family/Request visit [] Outpatient visit [] Follow-up visit [] Physician referral [] Code/Alert [x] Routine visit [] Staff referral [] Actively dying [] Patient sleeping [] Family support [] [] Out of room [] Palliative care [] [] Receiving care in room [] Pre-surgical visit [] Trauma [] Long length of stay [] ICU visit [] Other: Relational/Emotional Strength [x] Patient feels connected with others/family/visitors/staff [] Distress [] Loneliness/isolation [] Abandonment Spirituality of Patient [x] Person of Adrianne [x] Attends Cheondoism of their Adrianne [x] Believes in Prayer [x] Reads Bible or Anabaptist materials [] There are Spiritual issues to be addressed Collar Runner Interventions [x] Prayer [x] Active listening [x] Non-anxious presence [x] Spiritual/emotional support [] Crisis/trauma care [x] Spiritual counseling [] Bereavement support [] Provided bereavement packet [] Provided Bible/devotional materials [] Provided toy/stuffed animal, coloring book to patient or family member [] Provided Communion [] Anointing/[place] [] Salvation [] Completed spiritual assessment [] Other: Impact on Illness or Injury [] Angry [] Fearful [] Anxious [] Often cries [] Exhaustion [] Unable to work [] Unable to attend uatsdin [] Unable to walk/stand [] Unable to read [] Unable to drive [] Unable to eat/drink [] Unable to sleep [] Unable to be with family [] Patient intubated [x] Other: Summary Patient has a fellowship meeting he attends each Monday evening consisting of family and friends. Time spent with patient 10-minutes
--- NOTE | 2019-07-09 13:01 | PC.NURSE ---
pt with dry hacking cough noted .. c/o pain in chest due to forceful cough pain medication given at this time .
--- NOTE | 2019-07-09 15:32 | PM.PN ---
Subjective Subjective: Interval history: Chart reviewed, Tmax-102.1F around 0400, has been afebrile since. Patient seen and examined, resting in bed, reports coughing fits with aggravated back and right shoulder pain. He is requesting additional pain control as morphine does not seem to last for longer than an hour at a time in terms of pain relief. He is appetite has been quite diminished and he requests that if taking oral narcotics, he have something for my stomach. Reiterated that he should not take his hydroxyurea as he took a dose of his own meds last night. Medications: Reviewed: Yes Medication Review Details: Active Medications Generic Name Dose Route Start Last Admin Trade Name Freq PRN Reason Stop Dose Admin Acetaminophen 650 mg 07/09/19 02:22 07/09/19 05:53 Tylenol PO 650 mg Q6H PRN Administration Mild/Mod Pain Or Temp >/= 101 Albuterol/Ipratrop ium 3 ml 07/09/19 04:00 07/09/19 11:36 Duoneb INHALATION Not Given Q4H.RESPIRATORY S CH Azithromycin 500 mg 07/09/19 09:00 07/09/19 09:36 Zithromax PO 500 mg DAILY MARIA INES Administration Protocol Benzonatate 100 mg 07/09/19 09:00 07/09/19 15:24 Tessalon Pearls PO 100 mg TID MARIA INES Administration Clopidogrel Bisulf ate 75 mg 07/09/19 09:00 07/09/19 09:36 Plavix PO 75 mg DAILY MARIA INES Administration Enoxaparin Sodium 40 mg 07/09/19 02:30 07/09/19 03:45 Lovenox SUBCUT 40 mg Q24H MARIA INES Administration Guaifenesin/Dextro methorphan 5 ml 07/09/19 02:29 07/09/19 03:46 Robitussin Dm Or al Liq PO 5 ml Q4H PRN Administration COUGH Sodium Chloride 1,000 mls @ 75 ml s/hr 07/09/19 02:30 07/09/19 03:46 Sodium Chloride 0.9% IV 75 mls/hr .[id number] MARIA INES Administration Ceftriaxone Sodium 1,000 mg/ 50 mls @ 100 mls/ hr 07/09/19 22:30 Sodium Chloride IV Q24H MARIA INES Protocol Ibuprofen 600 mg 07/09/19 02:35 Motrin PO Q12H PRN Pain Metoprolol Tartrat e 2.5 mg 07/09/19 02:29 Metoprolol Tartr ate IV Q4H PRN tachycardia Morphine Sulfate 2 mg 07/09/19 02:22 07/09/19 12:53 Morphine IVP 2 mg Q4H PRN Administration SEVERE PAIN Ondansetron HCl 4 mg 07/09/19 02:22 Zofran IVP Q8H PRN vomiting, or N/V if npo No Known Allergies Allergy (Verified 07/08/19 15:12) Vitals/I&O/Wt Last Vital Signs Temp 99.4 F 07/09/19 15:24 Pulse 97 07/09/19 15:24 Resp 18 07/09/19 15:24 BP 107/75 07/09/19 15:24 Pulse Ox 96 07/09/19 15:24 07/09/19 07/09/19 07/09/19 06:59 14:59 22:59 Intake Total 240 / 240 Output Total 800 / 800 650 / 650 Balance -800 / -800 -410 / -410 Weight last 48 hrs Weight 75.75 kg Physical Exam Const: COMMON NORMALS: no apparent distress and oriented x3 GENERAL APPEARANCE: cooperative, comfortable and ill appearing ORIENTATION/CONSCIOUSNESS: Yes awake HENMT: COMMON NORMALS: normocephalic, head/scalp atraumatic, hearing grossly normal bilaterally and moist oral mucous membranes HEAD & SCALP: normocephalic and atraumatic Eye: COMMON NORMALS: PERRL, EOMs intact bilaterally and conjunctivae normal CONJUNCTIVA: Yes conjunctivae normal PUPIL: Yes PERRL Neck/C-Spine: COMMON NORMALS: full ROM GENERAL: Yes normal visual inspection and Yes trachea midline Resp: COMMON NORMALS: normal respiratory effort, no retractions and no use of accessory muscles EFFORT & INSPECTION: Yes able to speak in complete sentences, Yes symmetric chest movement, No tachypneic and Yes actively coughing non-productive AUSCULTATION: no wheezes and diminished lung sounds OTHER: -currently on RA Cardio: COMMON NORMALS: regular rate, regular rhythm, S1 normal heart sound, S2 normal heart sound and no murmurs RATE: regular rate RHYTHM: regular rhythm HEART SOUNDS: S1 normal and S2 normal GI: COMMON NORMALS: normal to inspection, nondistended, normoactive bowel sounds, soft to palpation and non-tender PALPATION: Yes soft Extremity: COMMON NORMALS: normal to inspection, full ROM and no clubbing, cyanosis or edema; negative for no pedal edema Neuro: COMMON NORMALS: oriented x3, moves all extremities, no focal motor deficits, no sensory deficits noted and gait normal Psych: COMMON NORMALS: mental status grossly normal, thought process normal, cooperative, affect normal and speech normal SPEECH: Yes normal speech THOUGHT PROCESS: normal thought process Skin: COMMON NORMALS: no rashes or lesions noted, no jaundice, no petechiae and no mottling GENERAL SKIN EXAM: no rashes or lesions noted Data : 07/09/19 05:08 07/09/19 05:08 Micro: Microbiology 07/09/19 05:14 Blood Culture - Preliminary Blood SPECIMEN COLLECTED 07/09/19 05:08 Blood Culture - Preliminary Blood SPECIMEN COLLECTED 07/08/19 18:27 Legionella Urinary Antigen - Final Urine,Clean Catch 07/08/19 18:27 Bacterial Antigens - Final Urine,Voided A&P Assessment and plan (1) Left lower lobe pneumonia: -noted LLL pneumonia on imaging -with associated sepsis as evidenced by fever, tachypnea, tachycardia -off supplemental oxygen and no longer hypoxic, continue to monitor respiratory status -noted decreasing leukocytosis, continue to trend WBC -pro-calcitonin wnl -does not meet criteria for COVID-19 testing -Tmax-102.1 F, continue to monitor vital signs -influenza screen, legionella, bacterial antigens negative -on IVF, wean off with improved HR -f/u blood cx Status: Acute Qualifiers: Pneumonia type: due to unspecified organism Qualified Code(s): J18.9 - Pneumonia, unspecified organism Code(s): J18.9 - Pneumonia, unspecified organism (2) Polycythemia vera: -has known hx of polycythemia vera and follows up with Dr. Sears. Managed with phlebotomies -normal Hg and platelet count, improved Hct -continue to hold hydroxyurea Status: Acute Code(s): D45 - Polycythemia vera Additional A&P Information -COPD, not oxygen dependent at baseline, no acute exacerbation currently -Former smoker, quit in 04/2019, smoked for 40 yrs -Chronic hepatitis C; on current treatment -known cholelithiasis -hx of PVD involving RLE; on Plavix -Chronic OA, DJD; pain control as needed -regular diet as tolerated -DVT ppx with Lovenox -Dispo: home -Code status: FULL code Attestations Medical Necessity Statement*: Patient requires hospitalization for continued management of left lower lobe pneumonia with associated sepsis on IV antibiotics. Time Spent in Patient Care: Greater than 35 minutes (>than 50% of time spent in counselling and/or direct pt care on unit). Coding Level of Care Code Acute Agriculture Scientist for Chg Fwd Exam Comprehensive Diagnoses Left lower lobe pneumonia J18.9 Pneumonia type: due to unspecified organism Polycythemia vera D45
--- NOTE | 2019-07-09 19:34 | ECG_ITS ---
Measurements Intervals [place] Rate: 139 P: SC: 0 QRS: -72 QRSD: 90 T: 50 QT: 286 QTc: 436 ATRIAL FIBRILLATION WITH RAPID VENTRICULAR RESPONSE INDETERMINATE AXIS LOW QRS VOLTAGE IN EXTREMITY LEADS [QRS DEFLECTION < 0.5 mV IN LIMB LEADS] LEFT ANTERIOR FASCICULAR BLOCK [QRS AXIS <= -45, QR IN I, RS IN II] Compared to ECG 07/09/2019 02:17:16 Indeterminate axis now present Low QRS voltage now present Sinus tachycardia no longer present Electronically Signed On 07-09-2019 20:05:58 CDT by Fernanda Mcdaniel M.D. [email or web address]
[2019-07-09] MEDS: metoprolol tartrate 1 mg/1 mL SDV 5 mL 2.5 MG IV ×2 (19:48→23:28)
[2019-07-09] MEDS: HYDROcodone-acetaminophen 5-325 mg Tablet 1 TAB PO (19:49)
[2019-07-09] MEDS: cefTRIAXone 1,000 MG in sodium chloride 0.9% (plus) 50 ML 100 MG IV (23:28)
[2019-07-10 03:47] VITALS: BP 92/57; PULSE 77; RESP 15; TEMP 36.8; O2SAT 97
[2019-07-10] MEDS: enoxaparin 40 mg/0.4 mL Syringe SUBCUT (03:51)
[2019-07-10 05:00] VITALS: PULSE 98; RESP 17; O2SAT 96
[2019-07-10 06:17] LABS: Basophils # 0.1 10^3/uL (0.0-0.1); Basophils % 0.3 %; Eosinophils # 1.2 10^3/uL (0.0-0.8); Eosinophils % 7.5 %; Hematocrit 44.7 % (42.0-52.0); Hemoglobin 13.9 g/dL (11.7-16.6); Lymphocytes % 5.9 %; Mean Corpuscular HGB Conc 31.1 g/dL (30.0-36.0); Mean Corpuscular Hemoglobin 22.6 pg (28.0-34.0); Mean Corpuscular Volume 72.6 fL (80-94); Mean Platelet Volume 9.9 fL (7.4-10.4); Monocytes % 6.3 %; Nucleated Red Blood Cells % 0 %; Platelet Count 321 10^3/cmm (130-400); Red Blood Count 6.16 10^6/uL (4.1-5.3); Red Cell Distribution Width 24.2 % (12.1-15.1); White Blood Count 16.4 10^3/uL (4.0-10.0)
[2019-07-10 07:26] VITALS: BP 102/66; PULSE 96; RESP 20; TEMP 36.5; O2SAT 92
[2019-07-10] MEDS: HYDROcodone-acetaminophen 5-325 mg Tablet 1 TAB PO ×3 (07:59→18:25)
[2019-07-10] MEDS: azithromycin 250 mg Tablet 500 MG PO (07:59)
[2019-07-10] MEDS: guaiFENesin 600 mg Tablet PO ×2 (07:59→18:23)
[2019-07-10] MEDS: clopidogrel 75 mg Tablet PO (07:59)
[2019-07-10] MEDS: famotidine 20 mg Tablet PO ×2 (07:59→18:23)
[2019-07-10] MEDS: benzonatate 100 mg Capsule PO ×2 (07:59→21:19)
[2019-07-10] MEDS: sodium chloride 0.9% 1,000 ML 75 ML IV ×2 (08:02→21:19)
[2019-07-10 11:21] VITALS: BP 104/71; PULSE 88; RESP 18; TEMP 36.9; O2SAT 94
[2019-07-10 15:18] VITALS: BP 99/70; PULSE 86; RESP 18; TEMP 36.8; O2SAT 96
--- NOTE | 2019-07-10 19:26 | PM.PN ---
Subjective Subjective: Interval history: Has been afebrile x 24 hrs, noted to be tachycardic overnight, got total of 5 mg IV metoprolol, HR controlled. Remains on RA, had 756 mL urine output overnight. Feels better today, has not required any metoprolol and heart rate has remained controlled throughout the day. Coughing persists though does not seem to be as uncomfortable as he was yesterday and overall looks better today. Inquired about when he might get to go home, discussed that if continued clinical improvement I anticipate discharge in 24 to 48 hours. Medications: Reviewed: Yes Medication Review Details: Active Medications Generic Name Dose Route Start Last Admin Trade Name Freq PRN Reason Stop Dose Admin Acetaminophen 650 mg 07/09/19 02:22 07/09/19 05:53 Tylenol PO 650 mg Q6H PRN Administration Mild/Mod Pain Or Temp >/= 101 Hydrocodone Bitart /Acetaminophen 1 tab 07/09/19 18:51 07/10/19 18:25 Hanson 5-325 Mg PO 1 tab Q4H PRN Administration MODERATE PAIN Albuterol/Ipratrop ium 3 ml 07/09/19 16:02 Duoneb INHALATION Q4H.RESPIRATORY P RN WHEEZING Azithromycin 500 mg 07/09/19 09:00 07/10/19 07:59 Zithromax PO 500 mg DAILY MARIA INES Administration Protocol Benzonatate 100 mg 07/09/19 09:00 07/10/19 18:23 Tessalon Pearls PO Not Given TID MARIA INES Clopidogrel Bisulf ate 75 mg 07/09/19 09:00 07/10/19 07:59 Plavix PO 75 mg DAILY MARIA INES Administration Enoxaparin Sodium 40 mg 07/09/19 02:30 07/10/19 03:51 Lovenox SUBCUT 40 mg Q24H MARIA INES Administration Famotidine 20 mg 07/10/19 09:00 07/10/19 18:23 Pepcid Tab PO 20 mg BID MARIA INES Administration Guaifenesin 600 mg 07/10/19 09:00 07/10/19 18:23 Mucinex PO 600 mg BID MARIA INES Administration Guaifenesin/Dextro methorphan 5 ml 07/09/19 02:29 07/09/19 03:46 Robitussin Dm Or al Liq PO 5 ml Q4H PRN Administration COUGH Sodium Chloride 1,000 mls @ 75 ml s/hr 07/09/19 02:30 07/10/19 08:02 Sodium Chloride 0.9% IV 75 mls/hr .[id number] MARIA INES Administration Ceftriaxone Sodium 1,000 mg/ 50 mls @ 100 mls/ hr 07/09/19 22:30 07/09/19 23:28 Sodium Chloride IV 100 mls/hr Q24H MARIA INES Administration Protocol Ibuprofen 600 mg 07/09/19 02:35 Motrin PO Q12H PRN Pain Lidocaine 1 patch 07/09/19 21:00 07/10/19 08:05 Lidoderm 5% Patc h TOPICAL Not Given [id number] MARIA INES Metoprolol Tartrat e 2.5 mg 07/09/19 02:29 07/09/19 23:28 Metoprolol Tartr ate IV 2.5 mg Q4H PRN Administration tachycardia Metoprolol Tartrat e 12.5 mg 07/11/19 09:00 Lopressor PO BID MARIA INES Morphine Sulfate 2 mg 07/09/19 18:52 Morphine IVP Q2H PRN SEVERE PAIN Ondansetron HCl 4 mg 07/09/19 02:22 Zofran IVP Q8H PRN vomiting, or N/V if npo No Known Allergies Allergy (Verified 07/08/19 15:12) Vitals/I&O/Wt Last Vital Signs Temp 98.3 F 07/10/19 15:18 Pulse 86 07/10/19 15:18 Resp 18 07/10/19 15:18 BP 99/70 07/10/19 15:18 Pulse Ox 96 07/10/19 15:18 07/10/19 07/10/19 07/10/19 06:59 14:59 22:59 Intake Total 960 / 2200 1200 / 1200 Output Total 390 / 1715 360 / 360 Balance 570 / 485 1200 / 1200 -360 / 840 Physical Exam Const: COMMON NORMALS: no apparent distress and oriented x3 GENERAL APPEARANCE: cooperative, comfortable and ill appearing ORIENTATION/CONSCIOUSNESS: Yes awake HENMT: COMMON NORMALS: normocephalic, head/scalp atraumatic, hearing grossly normal bilaterally and moist oral mucous membranes HEAD & SCALP: normocephalic and atraumatic Eye: COMMON NORMALS: PERRL, EOMs intact bilaterally and conjunctivae normal CONJUNCTIVA: Yes conjunctivae normal PUPIL: Yes PERRL Neck/C-Spine: COMMON NORMALS: full ROM GENERAL: Yes normal visual inspection and Yes trachea midline Resp: COMMON NORMALS: normal respiratory effort, no retractions and no use of accessory muscles EFFORT & INSPECTION: Yes able to speak in complete sentences, Yes symmetric chest movement, No tachypneic and Yes actively coughing non-productive AUSCULTATION: no wheezes and diminished lung sounds OTHER: -currently on RA Cardio: COMMON NORMALS: regular rate, regular rhythm, S1 normal heart sound, S2 normal heart sound and no murmurs RATE: regular rate RHYTHM: regular rhythm HEART SOUNDS: S1 normal and S2 normal GI: COMMON NORMALS: normal to inspection, nondistended, normoactive bowel sounds, soft to palpation and non-tender PALPATION: Yes soft Extremity: COMMON NORMALS: normal to inspection, full ROM and no clubbing, cyanosis or edema; negative for no pedal edema Neuro: COMMON NORMALS: oriented x3, moves all extremities, no focal motor deficits, no sensory deficits noted and gait normal Psych: COMMON NORMALS: mental status grossly normal, thought process normal, cooperative, affect normal and speech normal SPEECH: Yes normal speech THOUGHT PROCESS: normal thought process Skin: COMMON NORMALS: no rashes or lesions noted, no jaundice, no petechiae and no mottling GENERAL SKIN EXAM: no rashes or lesions noted Data : 07/10/19 06:00 07/09/19 05:08 Micro: Microbiology 07/09/19 05:14 Blood Culture - Preliminary Blood NEGATIVE TO DATE 07/09/19 05:08 Blood Culture - Preliminary Blood NEGATIVE TO DATE A&P Assessment and plan (1) Left lower lobe pneumonia: -noted LLL pneumonia on imaging -with associated sepsis as evidenced by fever, tachypnea, tachycardia -off supplemental oxygen and no longer hypoxic, continue to monitor respiratory status -noted decreasing leukocytosis, continue to trend WBC -pro-calcitonin wnl -does not meet criteria for COVID-19 testing -has been afebrile x 24 hrs, continue to monitor vital signs -influenza screen, legionella, bacterial antigens negative -on IVF, wean off with improved HR -blood cx: prelim negative Status: Acute Qualifiers: Pneumonia type: due to unspecified organism Qualified Code(s): J18.9 - Pneumonia, unspecified organism Code(s): J18.9 - Pneumonia, unspecified organism (2) Polycythemia vera: -has known hx of polycythemia vera and follows up with Dr. Sears. Managed with phlebotomies -normal Hg and platelet count, improved Hct -continue to hold hydroxyurea Status: Acute Code(s): D45 - Polycythemia vera Additional A&P Information -COPD, not oxygen dependent at baseline, no acute exacerbation currently -Former smoker, quit in 04/2019, smoked for 40 yrs -Chronic hepatitis C; on current treatment -known cholelithiasis -hx of PVD involving RLE; on Plavix -Chronic OA, DJD; pain control as needed -regular diet as tolerated -DVT ppx with Lovenox -Dispo: home; is clinically improving, anticipate discharge in 24-48 hrs if continued improvement -Code status: FULL code Attestations Medical Necessity Statement*: Patient requires hospitalization for continued treatment of pneumonia, on IV antibiotics with need for continued hemodynamic and respiratory status monitoring. Time Spent in Patient Care: 16 - 35 minutes (>than 50% of time spent in counselling and/or direct pt care on unit). Coding Level of Care Code Acute Rehabilitation Program Coordinator for Chg Fwd Diagnoses Left lower lobe pneumonia J18.9 Pneumonia type: due to unspecified organism Polycythemia vera D45
[2019-07-10 20:00] VITALS: BP 107/69; PULSE 86; RESP 18; TEMP 36.8; O2SAT 95
[2019-07-10] MEDS: cefTRIAXone 1,000 MG in sodium chloride 0.9% (plus) 50 ML 100 MG IV (21:21)
[2019-07-10] MEDS: lidocaine 5% Patch 1 PATCH TOPICAL (21:24)
[2019-07-11] VITALS: BP 112/74; PULSE 82; RESP 20; TEMP 36.6; O2SAT 92
[2019-07-11 04:00] VITALS: BP 111/71; PULSE 76; RESP 18; TEMP 36.8; O2SAT 94
[2019-07-11 06:24] LABS: Basophils # 0.1 10^3/uL (0.0-0.1); Basophils % 0.6 %; Eosinophils # 1.4 10^3/uL (0.0-0.8); Eosinophils % 12.4 %; Hematocrit 38.9 % (42.0-52.0); Hemoglobin 11.7 g/dL (11.7-16.6); Lymphocytes # 0.9 10^3/uL (0.8-4.8); Lymphocytes % 8.2 %; Mean Corpuscular HGB Conc 30.1 g/dL (30.0-36.0); Mean Corpuscular Hemoglobin 21.9 pg (28.0-34.0); Mean Corpuscular Volume 72.7 fL (80-94); Mean Platelet Volume 10.4 fL (7.4-10.4); Monocytes # 0.8 10^3/uL (0.2-0.9); Monocytes % 6.8 %; Neutrophils # 8.1 10^3/uL (1.8-7.7); Nucleated Red Blood Cells % 0 %; Platelet Count 320 10^3/cmm (130-400); Red Blood Count 5.35 10^6/uL (4.1-5.3); Red Cell Distribution Width 23.8 % (12.1-15.1); White Blood Count 11.4 10^3/uL (4.0-10.0)
[2019-07-11 06:35] LABS: Anion Gap 14.9 (5-19); Blood Urea Nitrogen 9 mg/dL (8-23); Calcium 7.9 mg/dL (8.5-10.5); Carbon Dioxide 20 mmol/L (22-29); Chloride 105 mmol/L (98-107); Glomerular Filtration Rate 97.6 mL/min (90-130); Glucose 109 mg/dL (65-115); Osmolality Calculated 279 mOsm/kg (285-295); Potassium 3.9 mmol/L (3.5-5.1); Sodium 136 mmol/L (136-145)
[2019-07-11 07:55] VITALS: PULSE 80; RESP 18; O2SAT 95
[2019-07-11 08:00] VITALS: BP 108/71; PULSE 85; RESP 18; TEMP 36.8; O2SAT 96
[2019-07-11] MEDS: clopidogrel 75 mg Tablet PO (08:36)
[2019-07-11] MEDS: guaiFENesin 600 mg Tablet PO (08:37)
[2019-07-11] MEDS: HYDROcodone-acetaminophen 5-325 mg Tablet 1 TAB PO (08:37)
[2019-07-11] MEDS: metoprolol tartrate 25 mg Tablet 12.5 MG PO (08:37)
[2019-07-11] MEDS: azithromycin 250 mg Tablet 500 MG PO (08:37)
[2019-07-11] MEDS: famotidine 20 mg Tablet PO (08:37)
[2019-07-11] MEDS: benzonatate 100 mg Capsule PO (08:37)
[2019-07-11] MEDS: sodium chloride 0.9% 1,000 ML 75 ML IV (08:38)
[2019-07-11 09:22] VITALS: BP 108/71; PULSE 85; RESP 18; TEMP 36.8; O2SAT 96
--- NOTE | 2019-07-11 09:49 | PM.DCS ---
Discharge Providers Date of Admission: 07/08/19 22:44 Date of Discharge: July 11, 2019 Attending Provider at Admission: Marilyn Saleh MD Attending Provider at Discharge: Arleen Walker MD Primary Care Provider: Renan Elmore MD Diagnoses at Discharge Discharge Diagnosis (1) Left lower lobe pneumonia: Status: Acute Problem details: -noted LLL pneumonia on imaging -with associated sepsis as evidenced by fever, tachypnea, tachycardia, leukocytosis -off supplemental oxygen and no longer hypoxic, continue to monitor respiratory status -noted decreasing leukocytosis, continue to trend WBC -pro-calcitonin wnl -does not meet criteria for COVID-19 testing -has been afebrile x 24 hrs, continue to monitor vital signs -influenza screen, legionella, bacterial antigens negative -on IVF, wean off with improved HR -blood cx: prelim negative Qualifiers: Pneumonia type: due to unspecified organism Qualified Code(s): J18.9 - Pneumonia, unspecified organism (2) Polycythemia vera: Status: Chronic Problem details: -has known hx of polycythemia vera and follows up with Dr. Sears. Managed with phlebotomies -normal Hg and platelet count, improved Hct -continue to hold hydroxyurea Other Information Additional DC diagnoses/information: -COPD, not oxygen dependent at baseline, no acute exacerbation currently -Former smoker, quit in 04/2019, smoked for 40 yrs -Chronic hepatitis C; on current treatment -known cholelithiasis -hx of PVD involving RLE; on Plavix -Chronic OA, DJD; pain control as needed -paroxysmal atrial fibrillation; appears to be new onset, started on low dose BB, could have been triggered by acute infection. Reason for Visit Reason for Visit: Reason For Visit: COUGH FEVER Hospital Course Hospital Course: Patient was admitted to the medical surgical floor and continued on broad-spectrum antibiotics secondary to findings on imaging consistent with left lower lobe pneumonia/pneumonitis. His respiratory status and hemodynamic status were closely monitored and he was noted to have episodes of what appears to be paroxysmal A. fib; responded well to IV and oral metoprolol. This appears to be new onset and was likely triggered by acute infection. He has been on hydroxyurea secondary to history of polycythemia vera though this has been on hold since admission. Patient is counseled on need to continue to hold hydroxyurea until completion of antibiotic treatment unless otherwise indicated by medical provider. He is hemoglobin and hematocrit have been monitored daily and have been appropriate. His white count has gradually been trending down. He has been afebrile for 48 hours. He has been maintained on room air. Due to persistent coughing episodes he has had increased lower back pain and has been on analgesics here, with some prescribed on discharge as noted below. I have counseled him on need to be cautious and avoid contact with any known sick individuals. He will need follow-up with his primary care provider as well as continue to follow-up with Dr. Sears. Of note on admission there was concern for associated sepsis secondary to pneumonia as evidenced by tachypnea, tachycardia, leukocytosis and fever. Sepsis has since resolved as evidenced by hemodynamic stability, lack of fever x 48 hours, decreasing leukocytosis. He will be discharged on dual antibiotic therapy for appropriate coverage and continued pneumonia treatment particularly due to hx of polycythemia. Discharge Summary: -Patient to follow-up with primary care physician within 1 week -Patient to continue to follow-up with Dr. Sears Physical Exam Const: COMMON NORMALS: no apparent distress and oriented x3 GENERAL APPEARANCE: cooperative, comfortable and ill appearing ORIENTATION/CONSCIOUSNESS: Yes awake HENMT: COMMON NORMALS: normocephalic, head/scalp atraumatic, hearing grossly normal bilaterally and moist oral mucous membranes HEAD & SCALP: normocephalic and atraumatic Eye: COMMON NORMALS: PERRL, EOMs intact bilaterally and conjunctivae normal CONJUNCTIVA: Yes conjunctivae normal PUPIL: Yes PERRL Neck/C-Spine: COMMON NORMALS: full ROM GENERAL: Yes normal visual inspection and Yes trachea midline Resp: COMMON NORMALS: normal respiratory effort, no retractions and no use of accessory muscles EFFORT & INSPECTION: Yes able to speak in complete sentences, Yes symmetric chest movement, No tachypneic and Yes actively coughing non-productive AUSCULTATION: no wheezes and diminished lung sounds OTHER: -currently on RA Cardio: COMMON NORMALS: regular rate, regular rhythm, S1 normal heart sound, S2 normal heart sound and no murmurs RATE: regular rate RHYTHM: regular rhythm HEART SOUNDS: S1 normal and S2 normal GI: COMMON NORMALS: normal to inspection, nondistended, normoactive bowel sounds, soft to palpation and non-tender PALPATION: Yes soft Extremity: COMMON NORMALS: normal to inspection, full ROM and no clubbing, cyanosis or edema; negative for no pedal edema Neuro: COMMON NORMALS: oriented x3, moves all extremities, no focal motor deficits, no sensory deficits noted and gait normal Psych: COMMON NORMALS: mental status grossly normal, thought process normal, cooperative, affect normal and speech normal SPEECH: Yes normal speech THOUGHT PROCESS: normal thought process Skin: COMMON NORMALS: no rashes or lesions noted, no jaundice, no petechiae and no mottling GENERAL SKIN EXAM: no rashes or lesions noted Discharge Data Data Completed and Pending: Completed Studies During Hospitalization Category Date Time Status CT chest w con* 7 1260 Urgent Cat Scan 07/08/19 20:08 Completed XR chest 2V* [id number] Urgent Exams 07/08/19 16:17 Completed Pending at discharge Category Date Time Status Blood Culture Rou anthony Lab 07/09/19 05:14 Results Labs from last 24 hours 07/11/19 07/11/19 06:00 06:00 WBC 11.4 H RBC 5.35 H Hgb 11.7 Hct 38.9 L MCV 72.7 L MCH 21.9 L MCHC 30.1 RDW 23.8 H Plt Count 320 MPV 10.4 Neut % (Auto) 71.0 Lymph % (Auto) 8.2 [place] % (Auto) 6.8 Eos % (Auto) 12.4 Baso % (Auto) 0.6 Neut # (Auto) 8.1 H Lymph # (Auto) 0.9 [place] # (Auto) 0.8 Eos # (Auto) 1.4 H Baso # (Auto) 0.1 Nucleated RBC % (a uto) 0 Nucleated RBCs # 0.0 Sodium 136 Potassium 3.9 Chloride 105 Carbon Dioxide 20 L Anion Gap 14.9 BUN 9 Creatinine 0.8 GFR Calculation 97.6 Glucose 109 Calculated Osmolal ity 279 L Calcium 7.9 L Vitals: Last Vital Signs Temp 98.3 F 07/11/19 09:22 Pulse 85 07/11/19 09:22 Resp 18 07/11/19 09:22 BP 108/71 07/11/19 09:22 Pulse Ox 96 07/11/19 09:22 Discharge Plan Discharge Patient Disposition: Home, Self-Care Condition: Stable Prescriptions: New azithromycin 250 mg tablet 250 mg PO DAILY 4 Days Qty: 4 RF: 0 Augmentin 875-125 mg tablet 1 tab PO BID 4 Days Qty: 8 RF: 0 metoprolol tartrate 25 mg Tablet 12.5 mg PO BID 30 Days Qty: 30 RF: 0 hydrocodone-acetaminophen 5-325 mg Tablet 1 tab PO Q4H PRN (Reason: Moderate Pain) Qty: 30 RF: 0 famotidine 20 mg Tablet 20 mg PO BID 30 Days Qty: 60 RF: 0 Continued clopidogrel [Plavix] 75 mg tablet 75 mg PO DAILY RF: 0 ibuprofen 800 mg Tablet 800 mg PO Q6H PRN (Reason: Pain) RF: 0 Held 5-hydroxytryptophan (5-HTP) 50 mg capsule 50 mg PO BID RF: 0 Hold Instructions: Please hold hydroxyurea until completion of antibiotic treatment Discharge Orders: Discharge Order (Routine); Ordered 07/11/19 Ordered By: Arleen Walker Referrals: Renan Elmore MD [Primary Care Provider] - 07/16/19 10:45 am (Post hospital discharge follow up. Treated for left lower lobe pneumonia/pneumonitis. Advised to hold hydroxyurea until completion of therapy. ) Niya Sears MD [Staff Physician] - 07/22/19 10:30 am (Follow up for polycythemia vera, hydroxyurea on hold due to acute pneumonia. ) Discharge Diet: Regular Discharge Activity: Resume usual activity Activity Restrictions/Additional Instructions: -Please DO NOT take hydroxyurea until completion of antibiotic treatment for pneumonia unless otherwise instructed by medical provider. Discharge Attestations Time Spent in Discharge Care*: greater than 30 min Specific Discharge Activities: Specific discharge activities: educating patient, discussing with correctional case manager/social workers/dc planners, documenting/other paperwork and evaluating patient/reviewing data Status at Discharge: Cognitive status at discharge: cognitively intact, Behavioral status at discharge: cooperative, Functional status at discharge: independent ambulation Overall status at discharge: patient is back to baseline Quality Metrics Clinical Quality Measures During this hospital stay, did patient experience: None Coding Level of Care Code Acute [facility] Fwd Diagnoses Left lower lobe pneumonia J18.9 Pneumonia type: due to unspecified organism Polycythemia vera D45
== END 2019-07-11 10:47 | disposition home or self-care (01) | DRG 871 ==
LOC: ER 23:03 → MEDSURG 23:24
PROVIDERS: Admitting Provider Student in an Organized Health Care Education/Training Program; Emergency Provider Family Medicine; Family Provider Internal Medicine; PCP Internal Medicine; Visit Provider Family Medicine
DX: A41.9 Sepsis, unspecified organism (principal); J96.01 Acute respiratory failure with hypoxia; J18.9 Pneumonia, unspecified organism; J44.0 Chronic obstructive pulmonary disease with (acute) lower respiratory infection; E78.5 Hyperlipidemia, unspecified; D45 Polycythemia vera; Z87.891 Personal history of nicotine dependence; B18.2 Chronic viral hepatitis C; I73.9 Peripheral vascular disease, unspecified; I48.0 Paroxysmal atrial fibrillation; M19.90 Unspecified osteoarthritis, unspecified site; K80.20 Calculus of gallbladder without cholecystitis without obstruction; Z79.02 Long term (current) use of antithrombotics/antiplatelets; Z85.9 Personal history of malignant neoplasm, unspecified
CPT/HCPCS: 12345; 36415; 71046; 71260; 80048; 80053; 81001; 83605; 83880; 84145; 84443; 85025; 86403; 87040; 87400; 87449; 93005; 94640; 94664; 96372; 96375; 99282; A9270; J0456; J0696; J1650; J2270; J3490; J7030; J7050; Q0144; Q9967

== ENCOUNTER 2019-07-22 08:35 | Outpatient (CLI) | payer MEDICAID, SELFPAY ==
[2019-07-22 09:02] LABS: Basophils # 0.2 10^3/uL (0.0-0.1); Basophils % 1.3 %; Eosinophils # 1.6 10^3/uL (0.0-0.8); Eosinophils % 12.2 %; Hematocrit 48.2 % (42.0-52.0); Hemoglobin 14.6 g/dL (11.7-16.6); Lymphocytes # 2.1 10^3/uL (0.8-4.8); Lymphocytes % 15.7 %; Mean Corpuscular HGB Conc 30.3 g/dL (30.0-36.0); Mean Corpuscular Hemoglobin 22.6 pg (28.0-34.0); Mean Corpuscular Volume 74.6 fL (80-94); Mean Platelet Volume 9.9 fL (7.4-10.4); Monocytes # 0.7 10^3/uL (0.2-0.9); Monocytes % 5.5 %; Neutrophils # 8.7 10^3/uL (1.8-7.7); Neutrophils % 64.3 %; Nucleated Red Blood Cells % 0 %; Platelet Count 648 10^3/cmm (130-400); Red Blood Count 6.46 10^6/uL (4.1-5.3); Red Cell Distribution Width 24.7 % (12.1-15.1); White Blood Count 13.5 10^3/uL (4.0-10.0)
--- NOTE | 2019-07-22 14:03 | ONC FU_ITS ---
Dr. Sears follow up note Patient: Fransisco Denis Unit #: [id number]: 1955 Dicatated By: Niya Sears M.D.Date of Visit:Jul 22, 2019 Onc Med Follow-up/Prog Note History of Present Illness: Mr. Fransisco Denis 64-year-old gentleman with history of leukocytosis for 12 years and now with elevated platelet count as well as hematocrit. CBC on 10/14/2016 showed white blood count 14.1 hemoglobin 17.3 hematocrit 50.9 platelet count 516,000 with elevated neutrophil count at 10.4 normal range being 1.4-6.5... Patient said, any time he would go to emergency room for is medical problems , doctors always make comment regarding his high white blood count and prescribe him antibiotics. He got more concerned when he was told about his elevated hematocrit and platelets. he said his brother has polycythemia and on chemotherapy pills and he is worried whether he has same condition. He denies any weight loss, he denies any fever chills, he denies any night sweats or peripheral lymphadenopathy. he denies any chronic sinus problem but has smoker's cough has been smoking 1 pack per day for last 40 years. he denies any hemoptysis or hematemesis. he denies any abdominal fullness. He said recently he was treated for tick bite with doxycycline which he finished 2 weeks course s/p 12 week course of Zepatier and elbavarin plus grazoprevin for hepatitis C. Interim history; patient lost follow-up, moved down to [place] to take care of his elder brother. And then he established his care there in hematology clinic where he was diagnosed with polycythemia vera and treated with phlebotomies on a regular basis as per patient his hematocrit at that time was gone up to 60. And he was getting phlebotomies every 3-4 months and the last one was done about 2 months ago. During his last visit to our clinic in October 2016, JAK2 mutation was ordered and at that time resulted came back positive for mutation which did confirm polycythemia vera. Quit smoking in April 2019. Started on hydroxyurea 500 mg daily on 05/30/2019 and continue with phlebotomies to keep hematocrit equal to or less than 45. Came for follow-up, denies any specific complaints today, no fever or chills, no nausea or vomiting no diarrhea constipation patient was in the hospital recently with progressive upper respiratory infection. As per patient he underwent CT scan of chest which showed questionable lung nodules, too small to biopsy, as per Dr. Elmore and patient said he has been scheduled for follow-up CT scan of chest on 10/02/2019. Dr. Elmore is following his questionable lung nodules. Patient said while he was in hospital he stopped taking hydroxyurea. Otherwise he is doing well denies any headaches denies any fever chills denies any nausea vomiting denies any cough or sore throat. Medications: Atorvastatin Calcium 1 Tablet (of 20 mg) Oral daily, EQ Ibuprofen 4 Tablet (of 200 mg) Oral b.i.d., Hydroxyurea 1 Tablet (of 500 mg) Oral b.i.d., Plavix 1 Tablet (of 75 mg) Oral daily Allergies: No Known Allergies. Review of Systems: Review of Systems is not available for this patient. Vital Signs: Performed on Jul 22, 2019 09:56 Height - 68.00 in Weight - 167.0 lbs (HIGH) BSA - 1.89 sq.m BMI - 25.39 Temperature - 98.1 F (LOW) Pulse - 70 /min Respiration - 20 /min BP - 131/89 mm(hg) O2 Sat - 98 % Pain - 9 Performance Status: 0 - Fully active, able to carry on all predisease activities without restrictions. (ECOG) Physical Examination: ENMT - . No oral exudates, ulcers, masses, thrush or mucositis. Oropharynx clear. Tongue normal, Respiratory - Lungs are clear to auscultation without rhonchi or wheezing, Extremities - no edema. Lab/Imaging: Test performed on Jul 01, 2019 12:35 WBC 11.0 10 3/uL RBC 6.25 10 6/uL HGB 13.2 g/dL HCT 44.0 % MCV 70.4 fL MCH 21.1 pg MCHC 30.0 g/dL RDW 22.7 % Platelet Count 355 10 3/cmm MPV 10.0 fL Neutrophils 8.0 10 3/uL Lymphocytes 1.5 10 3/uL Monocytes 0.6 10 3/uL Eosinophils 0.8 10 3/uL Basophils 0.1 10 3/uL Neutrophil % 72.4 % Lymphocyte % 13.7 % Monocyte % 5.1 % Eosinophil % 7.1 % Basophils % 1.2 % Impression: 1.Polycythemia vera JAk2 positive, confirmed in October 2016 at that time patient moved down to [place], and established care in hematology clinic there, where he was treated with phlebotomies every 3-4 month, and as per patient, the last one was done in October 2018, now has moved back to [place]. Leukocytosis with left shift, probably due to infections like hepatitis C or chronic inflammation like peripheral vascular disease involving the right leg or chronic bronchitis/ COPD due to smoking or [id number]-cjemdfp medication like androgen containing or idiopathic . lab workup done on 11/07/2016, showed BCR ABL negative LAP score 109 normal being 25 to 130 peripheral blood smear no abnormality seen started on hydroxyurea 500 mg by mouth daily on 05/30/2019 while continue with phlebotomies as needed chronic and heavy smoking smoke 1-2 pack a day for 40 years family history of polycythemia vera 3. Thrombocytosis probably reactive but myeloproliferative disorder cannot be ruled out 4. .Right leg pain/peripheral vascular disease involving the right leg Plain x-ray of the femur, tibia and fibula done on 11/08/2016 showed normal findings no abnormality seen 5. .Hepatitis C on 12 week course of Zepatier,elbavin plus grazoprevin 7. Presumably tick bite status post 2 weeks course of antibiotics with doxycycline 8. Chronic smoker 1-2 pack per day for 40 years 9. COPD 10. .Gallstones Plan: Discussed with patient regarding his labs white blood count 13.65 hemoglobin 14.6 crit 48.2 platelets 648,000 Clinically, patient doing well, with no new signs symptoms, his follow-up lab shows hemoglobin less than 15 hematocrit 48.2 and platelet count 648,000, patient was off hydroxyurea since his recent admission in the hospital. At this point we will restart him on hydroxyurea 500 mg by mouth daily and then repeat his labs e.g. CBC in a month. But patient said he is going to [place] for 4-6 weeks. Either he will go to local physician for CBC on her come back to our clinic when he returns from [place]. Signed By: Niya Sears M.D. <<Signature on File>>
== END 2019-07-22 08:36 | disposition home or self-care (01) ==
LOC: ONCMED 08:35
PROVIDERS: Family Provider Internal Medicine; PCP Internal Medicine; Visit Provider Internal Medicine Hematology & Oncology
DX: D45 Polycythemia vera (principal); F17.210 Nicotine dependence, cigarettes, uncomplicated; J44.9 Chronic obstructive pulmonary disease, unspecified; D47.3 Essential (hemorrhagic) thrombocythemia; I73.9 Peripheral vascular disease, unspecified; Z79.899 Other long term (current) drug therapy; Z86.19 Personal history of other infectious and parasitic diseases
CPT/HCPCS: 36415; 85025; 99214

== ENCOUNTER 2019-09-02 10:40 | Outpatient (CLI) | payer MEDICAID, SELFPAY ==
[2019-09-02 09:24] LABS: Basophils # 0.1 10^3/uL (0.0-0.1); Basophils % 1.2 %; Eosinophils # 0.8 10^3/uL (0.0-0.8); Eosinophils % 8.1 %; Hematocrit 48.5 % (42.0-52.0); Hemoglobin 14.8 g/dL (11.7-16.6); Lymphocytes # 1.6 10^3/uL (0.8-4.8); Lymphocytes % 17.2 %; Mean Corpuscular HGB Conc 30.5 g/dL (30.0-36.0); Mean Corpuscular Hemoglobin 23.8 pg (28.0-34.0); Mean Platelet Volume 10.5 fL (7.4-10.4); Monocytes # 0.6 10^3/uL (0.2-0.9); Monocytes % 6.6 %; Neutrophils # 6.3 10^3/uL (1.8-7.7); Neutrophils % 66.6 %; Nucleated Red Blood Cells % 0 %; Platelet Count 489 10^3/cmm (130-400); Red Blood Count 6.22 10^6/uL (4.1-5.3); Red Cell Distribution Width 22.4 % (12.1-15.1); White Blood Count 9.5 10^3/uL (4.0-10.0)
== END 2019-09-02 10:41 | disposition home or self-care (01) ==
LOC: ONCMED 10:42
PROVIDERS: PCP Internal Medicine; Visit Provider Internal Medicine Medical Oncology
DX: D45 Polycythemia vera (principal); D72.829 Elevated white blood cell count, unspecified; B19.20 Unspecified viral hepatitis C without hepatic coma
CPT/HCPCS: 36415; 85025

== ENCOUNTER 2019-09-30 10:55 | Outpatient (CLI) | payer MEDICAID, SELFPAY ==
[2019-09-30 11:24] LABS: Basophils # 0.1 10^3/uL (0.0-0.1); Basophils % 1.1 %; Eosinophils # 1.1 10^3/uL (0.0-0.8); Eosinophils % 10.8 %; Hemoglobin 14.9 g/dL (11.7-16.6); Lymphocytes % 19.2 %; Mean Corpuscular HGB Conc 30.4 g/dL (30.0-36.0); Mean Corpuscular Volume 85.5 fL (80-94); Mean Platelet Volume 9.7 fL (7.4-10.4); Monocytes # 0.7 10^3/uL (0.2-0.9); Monocytes % 6.9 %; Neutrophils # 6.2 10^3/uL (1.8-7.7); Neutrophils % 61.6 %; Nucleated Red Blood Cells % 0 %; Platelet Count 491 10^3/cmm (130-400); Red Blood Count 5.73 10^6/uL (4.1-5.3); Red Cell Distribution Width 21.9 % (12.1-15.1); White Blood Count 10.1 10^3/uL (4.0-10.0)
--- NOTE | 2019-09-30 14:52 | ONC FU_ITS ---
Dr. Sears follow up note Patient: Fransisco Denis Unit #: [id number]: 1955 Dicatated By: Niya Sears M.D.Date of Visit:Sep 30, 2019 Onc Med Follow-up/Prog Note History of Present Illness: Mr. Fransisco Denis 64-year-old gentleman with history of leukocytosis for 12 years and now with elevated platelet count as well as hematocrit. CBC on 10/14/2016 showed white blood count 14.1 hemoglobin 17.3 hematocrit 50.9 platelet count 516,000 with elevated neutrophil count at 10.4 normal range being 1.4-6.5... Patient said, any time he would go to emergency room for is medical problems , doctors always make comment regarding his high white blood count and prescribe him antibiotics. He got more concerned when he was told about his elevated hematocrit and platelets. he said his brother has polycythemia and on chemotherapy pills and he is worried whether he has same condition. He denies any weight loss, he denies any fever chills, he denies any night sweats or peripheral lymphadenopathy. he denies any chronic sinus problem but has smoker's cough has been smoking 1 pack per day for last 40 years. he denies any hemoptysis or hematemesis. he denies any abdominal fullness. He said recently he was treated for tick bite with doxycycline which he finished 2 weeks course s/p 12 week course of Zepatier and elbavarin plus grazoprevin for hepatitis C. Interim history; patient lost follow-up, moved down to [place] to take care of his elder brother. And then he established his care there in hematology clinic where he was diagnosed with polycythemia vera and treated with phlebotomies on a regular basis as per patient his hematocrit at that time was gone up to 60. And he was getting phlebotomies every 3-4 months and the last one was done about 2 months ago. During his last visit to our clinic in October 2016, JAK2 mutation was ordered and at that time resulted came back positive for mutation which did confirm polycythemia vera. Quit smoking in April 2019. Started on hydroxyurea 500 mg daily on 05/30/2019 and continue with phlebotomies to keep hematocrit equal to or less than 45.Hydroxyurea increased to 1000 mg on Monday, Monday and Monday and continue with the 500 mg daily on remaining days per week from 500 mg p.o. daily on September 30, 2019 As per patient he underwent CT scan of chest which showed questionable lung nodules, too small to biopsy, as per Dr. Elmore and patient said he has been scheduled for follow-up CT scan of chest on 10/02/2019. Dr. Elmore is following his questionable lung nodules. Came for follow-up, denies any specific complaint except generalized itching but no skin rash, denies any taking new medication or changing in soap, as per patient any time his hematocrit goes up he develops itching. Otherwise denies any headaches blurred vision or double vision denies any focal weakness. Patient was supposed to get phlebotomy last month but he left early for his trip to [place] and could not get it done there because of insurance issue. Medications: Aspirin Adult 1 Tablet (of 325 mg) Oral daily, Atorvastatin Calcium 1 Tablet (of 20 mg) Oral daily, EQ Ibuprofen 4 Tablet (of 200 mg) Oral b.i.d., Hydroxyurea 1 Tablet (of 500 mg) Oral b.i.d. Allergies: No Known Allergies. Review of Systems: Review of Systems is not available for this patient. Vital Signs: Performed on Sep 30, 2019 12:32 Height - 68.00 in Weight - 172.2 lbs (HIGH) BSA - 1.92 sq.m BMI - 26.18 Temperature - 98.8 F Pulse - 73 /min Respiration - 18 /min BP - 119/79 mm(hg) O2 Sat - 99 % Pain - 6 Performance Status: 0 - Fully active, able to carry on all predisease activities without restrictions. (ECOG) Physical Examination: ENMT - . No thrush or mucositis. Oropharynx clear. Tongue normal, Respiratory - Lungs are clear, Cardiovascular - Regular rate and rhythm of heart, Abdomen - soft ,Bowel sounds present, Extremities - No edema.. Lab/Imaging: Test performed on Sep 30, 2019 11:04 WBC 10.1 10 3/uL RBC 5.73 10 6/uL HGB 14.9 g/dL HCT 49.0 % MCV 85.5 fL MCH 26.0 pg MCHC 30.4 g/dL RDW 21.9 % Platelet Count 491 10 3/cmm MPV 9.7 fL Neutrophils 6.2 10 3/uL Lymphocytes 2.0 10 3/uL Monocytes 0.7 10 3/uL Eosinophils 1.1 10 3/uL Basophils 0.1 10 3/uL Neutrophil % 61.6 % Lymphocyte % 19.2 % Monocyte % 6.9 % Eosinophil % 10.8 % Basophils % 1.1 % NRBC 0.0 /100WBC NRBC % 0 % Impression: 1.Polycythemia vera JAk2 positive, confirmed in October 2016 at that time patient moved down to [place], and established care in hematology clinic there, where he was treated with phlebotomies every 3-4 month, and as per patient, the last one was done in October 2018, now has moved back to [place]. Leukocytosis with left shift, probably due to infections like hepatitis C or chronic inflammation like peripheral vascular disease involving the right leg or chronic bronchitis/ COPD due to smoking or [id number]-[id number] medication like androgen containing or idiopathic . lab workup done on 11/07/2016, showed BCR ABL negative LAP score 109 normal being 25 to 130 peripheral blood smear no abnormality seen started on hydroxyurea 500 mg by mouth daily on 05/30/2019 while continue with phlebotomies as needed chronic and heavy smoking smoke 1-2 pack a day for 40 years family history of polycythemia vera 3. Thrombocytosis probably reactive but myeloproliferative disorder cannot be ruled out 4. .Right leg pain/peripheral vascular disease involving the right leg Plain x-ray of the femur, tibia and fibula done on 11/08/2016 showed normal findings no abnormality seen 5. .Hepatitis C on 12 week course of Zepatier,elbavin plus grazoprevin 7. Presumably tick bite status post 2 weeks course of antibiotics with doxycycline 8. Chronic smoker 1-2 pack per day for 40 years 9. COPD 10. .Gallstones Plan: Discussed with patient regarding his labs white blood count 10.1 hemoglobin 14.9 crit 49 platelets 491,000 Clinically, patient is doing well, denies any specific complaints except generalized itching but no skin rash, as per patient anytime his hematocrit goes up, usually he develops itching and responded very well to phlebotomy. At this point we will proceed with phlebotomy with a 500 cc and 250 cc normal saline replacement. Also increase his hydroxyurea dose to 1000 mg on Monday, Monday and Monday and then he will continue 500 mg p.o. daily on remaining days every week. We will continue phlebotomy every 2 weeks and goal is to keep his hematocrit below 45. He will return to clinic in 1 month with CBC. Signed By: Niya Sears M.D. <<Signature on File>>
== END 2019-09-30 10:56 | disposition home or self-care (01) ==
LOC: ONCMED 10:57
PROVIDERS: PCP Internal Medicine; Visit Provider Internal Medicine Hematology & Oncology
DX: D45 Polycythemia vera (principal); D72.829 Elevated white blood cell count, unspecified; L29.9 Pruritus, unspecified; B19.20 Unspecified viral hepatitis C without hepatic coma; J44.9 Chronic obstructive pulmonary disease, unspecified; I73.9 Peripheral vascular disease, unspecified; D47.3 Essential (hemorrhagic) thrombocythemia; F17.210 Nicotine dependence, cigarettes, uncomplicated; K80.80 Other cholelithiasis without obstruction; Z79.899 Other long term (current) drug therapy
CPT/HCPCS: 36415; 85025; 99195; 99214

== ENCOUNTER 2019-10-03 08:39 | Outpatient (CLI) | payer MEDICAID, SELFPAY ==
--- NOTE | 2019-10-03 09:00 | CT_ITS ---
WS: [id number] CT CHEST TECHNIQUE: Contrast enhanced CT of the chest with coronal and sagittal reformatted images. CLINICAL INFORMATION: d COMPARISON: CT June 28, 2019 DLP: 997.[address] scans at [facility] use at least one of these dose optimization techniques: automat ed exposure control; mA and/or kV adjustment per patient size (includes targeted exams where dose is matched to clinical indication); or iterative reconstruction. FINDINGS: Stable 6 mm subpleural nodule in the right upper lobe. Lobulated pulmonary nodule in the left upper l obe laterally and lingula the largest measuring 9 mm in left upper lobe. Additional smaller subcentim eter pulmonary nodules are stable. No new pulmonary opacities. Left lower lobe infiltrates have resol [place]. No mediastinal or hilar lymphadenopathy. No axillary lymphadenopathy. Normal thyroid gland. Normal ca liber thoracic aorta. Proximal main pulmonary arteries are normal. Adrenal glands are normal. Splenomegaly. Prominent calcified gallstone appears unchanged measuring [address]/CT chest w con* [id number] IMPRESSION: 1. Multiple small noncalcified pulmonary nodules are stable compared to July 08, 2019. Largest in the left upper lobe measuring 9 mm. Recommend 6month follo w-up. 2. No mediastinal or hilar lymphadenopathy. 3. Stable 17 mm calcified gallstone in the gallbladder. Gallstone can be furth er evaluated ultrasound. 4. Stable splenomegaly. 5. Left lower lobe pneumonitis has resolved.
[2019-10-03 09:51] LABS: Blood Urea Nitrogen 8 mg/dL (8-23); Glomerular Filtration Rate 67.6 mL/min (90-130)
[2019-10-03] MEDS: iohexol 300 mg/mL 100 mL Btl IV (09:52)
== END 2019-10-03 08:40 | disposition home or self-care (01) ==
LOC: RADWPI 08:43
PROVIDERS: Radiology Neuroradiology; Family Provider Internal Medicine; PCP Internal Medicine; Visit Provider Internal Medicine
DX: K80.80 Other cholelithiasis without obstruction (principal); R16.1 Splenomegaly, not elsewhere classified; R91.8 Other nonspecific abnormal finding of lung field
CPT/HCPCS: 71260; 82565; 84520; Q9967

== ENCOUNTER 2019-10-14 10:52 | Outpatient (CLI) | payer MEDICAID, SELFPAY ==
[2019-10-14 11:17] LABS: Basophils # 0.1 10^3/uL (0.0-0.1); Basophils % 1.1 %; Eosinophils # 0.8 10^3/uL (0.0-0.8); Eosinophils % 10.9 %; Hematocrit 42.9 % (42.0-52.0); Hemoglobin 13.4 g/dL (11.7-16.6); Lymphocytes # 1.5 10^3/uL (0.8-4.8); Lymphocytes % 19.7 %; Mean Corpuscular HGB Conc 31.2 g/dL (30.0-36.0); Mean Corpuscular Hemoglobin 26.9 pg (28.0-34.0); Mean Corpuscular Volume 86.1 fL (80-94); Mean Platelet Volume 10.5 fL (7.4-10.4); Monocytes # 0.5 10^3/uL (0.2-0.9); Monocytes % 6.2 %; Neutrophils # 4.7 10^3/uL (1.8-7.7); Neutrophils % 61.8 %; Nucleated Red Blood Cells % 0 %; Platelet Count 197 10^3/cmm (130-400); Red Blood Count 4.98 10^6/uL (4.1-5.3); Red Cell Distribution Width 21.7 % (12.1-15.1); White Blood Count 7.5 10^3/uL (4.0-10.0)
== END 2019-10-14 10:53 | disposition home or self-care (01) ==
LOC: ONCMED 10:55
PROVIDERS: PCP Internal Medicine; Visit Provider Internal Medicine Hematology & Oncology
DX: D45 Polycythemia vera (principal); D72.829 Elevated white blood cell count, unspecified; B19.20 Unspecified viral hepatitis C without hepatic coma
CPT/HCPCS: 36415; 85025

== ENCOUNTER 2019-11-05 08:27 | Outpatient (CLI) | payer MEDICAID, SELFPAY ==
[2019-11-05 09:08] LABS: Basophils # 0.1 10^3/uL (0.0-0.1); Basophils % 1.4 %; Eosinophils # 0.6 10^3/uL (0.0-0.8); Eosinophils % 7.3 %; Hematocrit 45.2 % (42.0-52.0); Hemoglobin 14.5 g/dL (11.7-16.6); Lymphocytes # 1.7 10^3/uL (0.8-4.8); Lymphocytes % 21.9 %; Mean Corpuscular HGB Conc 32.1 g/dL (30.0-36.0); Mean Corpuscular Hemoglobin 28.4 pg (28.0-34.0); Mean Corpuscular Volume 88.5 fL (80-94); Mean Platelet Volume 10.5 fL (7.4-10.4); Monocytes # 0.6 10^3/uL (0.2-0.9); Monocytes % 7.1 %; Neutrophils # 4.89 10^3/uL (1.8-7.7); Neutrophils % 61.9 %; Nucleated Red Blood Cells % 0 %; Platelet Count 334 10^3/cmm (130-400); Red Blood Count 5.11 10^6/uL (4.1-5.3); Red Cell Distribution Width 19.8 % (12.1-15.1); White Blood Count 7.9 10^3/uL (4.0-10.0)
--- NOTE | 2019-11-05 11:34 | ONC FU_ITS ---
Dr. Sears follow up note Patient: Fransisco Denis Unit #: [id number]: 1955 Dicatated By: Niya Sears M.D.Date of Visit:Nov 05, 2019 Onc Med Follow-up/Prog Note History of Present Illness: Mr. Fransisco Denis 64-year-old gentleman with history of leukocytosis for 12 years and now with elevated platelet count as well as hematocrit. CBC on 10/14/2016 showed white blood count 14.1 hemoglobin 17.3 hematocrit 50.9 platelet count 516,000 with elevated neutrophil count at 10.4 normal range being 1.4-6.5... Patient said, any time he would go to emergency room for is medical problems , doctors always make comment regarding his high white blood count and prescribe him antibiotics. He got more concerned when he was told about his elevated hematocrit and platelets. he said his brother has polycythemia and on chemotherapy pills and he is worried whether he has same condition. He denies any weight loss, he denies any fever chills, he denies any night sweats or peripheral lymphadenopathy. he denies any chronic sinus problem but has smoker's cough has been smoking 1 pack per day for last 40 years. he denies any hemoptysis or hematemesis. he denies any abdominal fullness. He said recently he was treated for tick bite with doxycycline which he finished 2 weeks course s/p 12 week course of Zepatier and elbavarin plus grazoprevin for hepatitis C. Interim history; patient lost follow-up, moved down to [place] to take care of his elder brother. And then he established his care there in hematology clinic where he was diagnosed with polycythemia vera and treated with phlebotomies on a regular basis as per patient his hematocrit at that time was gone up to 60. And he was getting phlebotomies every 3-4 months and the last one was done about 2 months ago. During his last visit to our clinic in October 2016, JAK2 mutation was ordered and at that time resulted came back positive for mutation which did confirm polycythemia vera. Quit smoking in April 2019. Started on hydroxyurea 500 mg daily on 05/30/2019 and continue with phlebotomies to keep hematocrit equal to or less than 45.Hydroxyurea increased to 1000 mg on Monday, Monday and Monday and continue with the 500 mg daily on remaining days per week from 500 mg p.o. daily on September 30, 2019, Patient cut down his hydroxyurea dose to 500 mg daily around 25 of October, because of intolerance e.g. generalized weakness and fatigue As per patient he underwent CT scan of chest which showed questionable lung nodules, too small to biopsy, Dr. Elmore is following his questionable lung nodules. Patient underwent follow-up CT scan of chest on 01/03/2020 which showed multiple small noncalcified pulmonary nodules are stable compared to July 08, 2019, largest in the left upper lobe measuring 9 mm. Recommended six-month follow-up No mediastinal or hilar lymphadenopathy. Stable splenomegaly. Left lower lobe pneumonitis has resolved. Came for follow-up, denies any specific complaint except chronic lower back pain, patient uses marijuana and ibuprofen on as-needed basis. But denies any numbness in lower extremity denies any urine or stool incontinence denies any recent trauma to his back. Patient said around 25 October, he did cut down his hydroxyurea dose to 500 mg p.o. daily, instead of alternate with thousand milligrams every other day, because of progressive weakness and fatigue, since then he is feeling better now. Medications: Aspirin Adult 1 Tablet (of 325 mg) Oral daily, Atorvastatin Calcium 1 Tablet (of 20 mg) Oral daily, EQ Ibuprofen 4 Tablet (of 200 mg) Oral b.i.d., Hydroxyurea 1 Tablet (of 500 mg) Oral b.i.d. Allergies: No Known Allergies. Review of Systems: Constitutional - Appetite is good, weight is stable. No fever, chills, hot flashes, or night sweats.Energy level is good, ENMT - No sinus congestion or drainage. No mouth sores. No sore throat or difficulty swallowing, Hematologic/Lymphatic - No abnormal bruising or bleeding, Respiratory - No shortness of breath. Positive for cough. No pleuritic pain, Cardiovascular - No angina pain, Gastrointestinal - No nausea or vomiting. No heartburn or acid reflux. No diarrhea or constipation. No blood in the stool or black stools, Genitourinary (M) - No dysuria or hematuria. No urinary frequency. No urgency or incontinence, Musculoskeletal - He has chronic back pain, Neurologic - No headache or dizziness, Psychiatric - No anxiety or depression. No insomnia. Vital Signs: Performed on Nov 05, 2019 10:26 Height - 68.00 in Weight - 170.8 lbs (LOW) BSA - 1.91 sq.m BMI - 25.97 Temperature - 98.4 F Pulse - 70 /min Respiration - 18 /min BP - 128/84 mm(hg) O2 Sat - 99 % Pain - 10 Performance Status: 1 - No physically strenuous activity, but ambulatory and able to carry out light or sedentary work (e.g. office work, light house work). (ECOG) Physical Examination: ENMT - No mouth sores no thrush, no jaundice, Respiratory - Lungs are clear, Cardiovascular - Regular rate and rhythm of heart, Abdomen - Soft, bowel sounds present, Extremities - No visible edema. Lab/Imaging: Test performed on Oct 14, 2019 11:04 WBC 7.5 10 3/uL RBC 4.98 10 6/uL HGB 13.4 g/dL HCT 42.9 % MCV 86.1 fL MCH 26.9 pg MCHC 31.2 g/dL RDW 21.7 % Platelet Count 197 10 3/cmm MPV 10.5 fL Neutrophils 4.7 10 3/uL Lymphocytes 1.5 10 3/uL Monocytes 0.5 10 3/uL Eosinophils 0.8 10 3/uL Basophils 0.1 10 3/uL Neutrophil % 61.8 % Lymphocyte % 19.7 % Monocyte % 6.2 % Eosinophil % 10.9 % Basophils % 1.1 % NRBC % 0 % Test performed on Sep 30, 2019 11:04 NRBC 0.0 /100WBC Impression: 1.Polycythemia vera JAk2 positive, confirmed in October 2016 at that time patient moved down to [place], and established care in hematology clinic there, where he was treated with phlebotomies every 3-4 month, and as per patient, the last one was done in October 2018, now has moved back to [place]. Leukocytosis with left shift, probably due to infections like hepatitis C or chronic inflammation like peripheral vascular disease involving the right leg or chronic bronchitis/ COPD due to smoking or [id number] medication like androgen containing or idiopathic . lab workup done on 11/07/2016, showed BCR ABL negative LAP score 109 normal being 25 to 130 peripheral blood smear no abnormality seen started on hydroxyurea 500 mg by mouth daily on 05/30/2019 while continue with phlebotomies as needed chronic and heavy smoking smoke 1-2 pack a day for 40 years family history of polycythemia vera 3. Thrombocytosis probably reactive but myeloproliferative disorder cannot be ruled out 4. .Right leg pain/peripheral vascular disease involving the right leg Plain x-ray of the femur, tibia and fibula done on 11/08/2016 showed normal findings no abnormality seen 5. .Hepatitis C on 12 week course of Zepatier,elbavin plus grazoprevin 7. Presumably tick bite status post 2 weeks course of antibiotics with doxycycline 8. Chronic smoker 1-2 pack per day for 40 years 9. COPD 10. .Gallstones Plan: Discussed with patient regarding his labs white blood count 7.9 hemoglobin 14.5 hematocrit 45.2 platelets 334,000 Clinically, patient is doing well, tolerating hydroxyurea 500 mg p.o. daily, patient adjusted his dose on his own, his follow-up labs shows stable hemoglobin/hematocrit slightly above 45, will consider phlebotomy and then follow-up with CBC in a month and consider phlebotomy to keep hematocrit below 45 and will see him back in 2 months with CBC. Patient has chronic lower back pain because of ruptured disc and severe degenerative joint disease and patient take marijuana on a regular basis along with ibuprofen on as-needed basis, referral to pain clinic was suggested but patient declined because of conditions against marijuana use. And also declined consultation with a spine surgeon. Patient was advised in case there is a sudden weakness in lower extremities or pain become unbearable, he need to go to hospital immediately. Patient was advised to be compliant with hydroxyurea, now he is taking 500 mg p.o. daily and also advised to continue take daily aspirin and maintain good hydration. Patient was supposed to get phlebotomy done today but because of poor IV access, it was postponed so we will consider Port-A-Cath placement for better IV access. And then consider phlebotomy, if hematocrit is above 45. As far as stable noncalcified pulmonary nodules are concerned, recently done CT scan of chest ordered by PMD showed no changes, patient will continue with follow-up with his PMD regarding these pulmonary nodules Signed By: Niya Sears M.D. <<Signature on File>>
== END 2019-11-05 08:28 | disposition home or self-care (01) ==
LOC: ONCMED 08:31
PROVIDERS: PCP Internal Medicine; Visit Provider Internal Medicine Hematology & Oncology
DX: D45 Polycythemia vera (principal); I73.9 Peripheral vascular disease, unspecified; J44.9 Chronic obstructive pulmonary disease, unspecified; F17.210 Nicotine dependence, cigarettes, uncomplicated; D47.3 Essential (hemorrhagic) thrombocythemia; B19.20 Unspecified viral hepatitis C without hepatic coma; K80.80 Other cholelithiasis without obstruction; G89.29 Other chronic pain; M54.5 Low back pain; F12.90 Cannabis use, unspecified, uncomplicated; R91.8 Other nonspecific abnormal finding of lung field; Z79.899 Other long term (current) drug therapy
CPT/HCPCS: 85025; 99214

== ENCOUNTER 2019-11-12 10:46 | Outpatient (CLI) | payer MEDICAID, SELFPAY ==
[2019-11-12] MEDS: sodium chloride 0.9% 250 ML 999 ML IV (11:13)
== END 2019-11-12 10:47 | disposition home or self-care (01) ==
LOC: ONCMED 10:49
PROVIDERS: PCP Internal Medicine; Visit Provider Internal Medicine Hematology & Oncology
DX: D45 Polycythemia vera (principal); D72.829 Elevated white blood cell count, unspecified; B19.20 Unspecified viral hepatitis C without hepatic coma
CPT/HCPCS: 36415; 99195; J7050

== ENCOUNTER 2019-12-13 08:06 | Outpatient (CLI) | payer MEDICAID, SELFPAY ==
[2019-12-13 08:30] LABS: Basophils # 0.1 10^3/uL (0.0-0.1); Basophils % 1.6 %; Eosinophils # 0.7 10^3/uL (0.0-0.8); Eosinophils % 9.5 %; Hematocrit 45.3 % (42.0-52.0); Hemoglobin 14.3 g/dL (11.7-16.6); Lymphocytes # 1.7 10^3/uL (0.8-4.8); Lymphocytes % 22.4 %; Mean Corpuscular HGB Conc 31.6 g/dL (30.0-36.0); Mean Corpuscular Volume 95.2 fL (80-94); Mean Platelet Volume 9.9 fL (7.4-10.4); Monocytes # 0.4 10^3/uL (0.2-0.9); Monocytes % 5.3 %; Neutrophils # 4.57 10^3/uL (1.8-7.7); Neutrophils % 60.7 %; Nucleated Red Blood Cells % 0 %; Platelet Count 137 10^3/cmm (130-400); Red Blood Count 4.76 10^6/uL (4.1-5.3); Red Cell Distribution Width 16.5 % (12.1-15.1); White Blood Count 7.5 10^3/uL (4.0-10.0)
== END 2019-12-13 08:07 | disposition home or self-care (01) ==
LOC: ONCMED 08:07
PROVIDERS: PCP Internal Medicine; Visit Provider Internal Medicine Hematology & Oncology
DX: D45 Polycythemia vera (principal); D72.829 Elevated white blood cell count, unspecified; B19.20 Unspecified viral hepatitis C without hepatic coma
CPT/HCPCS: 85025

== ENCOUNTER 2020-01-17 07:06 | Outpatient (CLI) | payer MEDICAID, SELFPAY ==
[2020-01-17 07:42] LABS: Basophils # 0.1 10^3/uL (0.0-0.1); Eosinophils # 0.8 10^3/uL (0.0-0.8); Eosinophils % 11.4 %; Hematocrit 44.8 % (42.0-52.0); Hemoglobin 14.5 g/dL (11.7-16.6); Lymphocytes # 1.3 10^3/uL (0.8-4.8); Lymphocytes % 18.6 %; Mean Corpuscular HGB Conc 32.4 g/dL (30.0-36.0); Mean Corpuscular Hemoglobin 31.1 pg (28.0-34.0); Mean Corpuscular Volume 96.1 fL (80-94); Mean Platelet Volume 9.8 fL (7.4-10.4); Monocytes # 0.5 10^3/uL (0.2-0.9); Monocytes % 6.5 %; Neutrophils # 4.41 10^3/uL (1.8-7.7); Neutrophils % 62.4 %; Nucleated Red Blood Cells % 0 %; Platelet Count 190 10^3/cmm (130-400); Red Blood Count 4.66 10^6/uL (4.1-5.3); Red Cell Distribution Width 15.8 % (12.1-15.1); White Blood Count 7.1 10^3/uL (4.0-10.0)
--- NOTE | 2020-01-17 11:44 | ONC FU_ITS ---
Dr. Sears follow up note Patient: Fransisco Denis Unit #: [id number]: 1955 Dicatated By: Niya Sears M.D.Date of Visit:Jan 17, 2020 Onc Med Follow-up/Prog Note History of Present Illness: Mr. Fransisco Denis 64-year-old gentleman with history of leukocytosis for 12 years and now with elevated platelet count as well as hematocrit. CBC on 10/14/2016 showed white blood count 14.1 hemoglobin 17.3 hematocrit 50.9 platelet count 516,000 with elevated neutrophil count at 10.4 normal range being 1.4-6.5... Patient said, any time he would go to emergency room for is medical problems , doctors always make comment regarding his high white blood count and prescribe him antibiotics. He got more concerned when he was told about his elevated hematocrit and platelets. he said his brother has polycythemia and on chemotherapy pills and he is worried whether he has same condition. He denies any weight loss, he denies any fever chills, he denies any night sweats or peripheral lymphadenopathy. he denies any chronic sinus problem but has smoker's cough has been smoking 1 pack per day for last 40 years. he denies any hemoptysis or hematemesis. he denies any abdominal fullness. He said recently he was treated for tick bite with doxycycline which he finished 2 weeks course s/p 12 week course of Zepatier and elbavarin plus grazoprevin for hepatitis C. Interim history; patient lost follow-up, moved down to [place] to take care of his elder brother. And then he established his care there in hematology clinic where he was diagnosed with polycythemia vera and treated with phlebotomies on a regular basis as per patient his hematocrit at that time was gone up to 60. And he was getting phlebotomies every 3-4 months and the last one was done about 2 months ago. During his last visit to our clinic in October 2016, JAK2 mutation was ordered and at that time resulted came back positive for mutation which did confirm polycythemia vera. Quit smoking in April 2019. Started on hydroxyurea 500 mg daily on 05/30/2019 and continue with phlebotomies to keep hematocrit equal to or less than 45.Hydroxyurea increased to 1000 mg on Monday, Monday and Monday and continue with the 500 mg daily on remaining days per week from 500 mg p.o. daily on September 30, 2019, Patient cut down his hydroxyurea dose to 500 mg daily around 25 of October, because of intolerance e.g. generalized weakness and fatigue As per patient he underwent CT scan of chest which showed questionable lung nodules, too small to biopsy, Dr. Elmore is following his questionable lung nodules. Patient underwent follow-up CT scan of chest on 01/03/2020 which showed multiple small noncalcified pulmonary nodules are stable compared to July 08, 2019, largest in the left upper lobe measuring 9 mm. Recommended six-month follow-up No mediastinal or hilar lymphadenopathy. Stable splenomegaly. Left lower lobe pneumonitis has resolved. Patient said around 25 October, he did cut down his hydroxyurea dose to 500 mg p.o. daily, instead of alternate with thousand milligrams every other day, because of progressive weakness and fatigue, since then he is feeling better now. Came for follow-up, denies any specific complaints except chronic lower back pain because of degenerative disc, he is following with his PMD for that. Denies any headaches or blurred vision or double vision denies any chest pain or shortness of breath or heaviness. Tolerating hydroxyurea well. Medications: Aspirin Adult 1 Tablet (of 325 mg) Oral daily, Atorvastatin Calcium 1 Tablet (of 20 mg) Oral daily, EQ Ibuprofen 4 Tablet (of 200 mg) Oral b.i.d., Hydroxyurea 1 Tablet (of 500 mg) Oral b.i.d. Allergies: No Known Allergies. Review of Systems: Constitutional - Appetite is good, weight is stable. No fever, chills, hot flashes, or night sweats.Energy level is good, ENMT - No sinus congestion or drainage. No mouth sores. No sore throat or difficulty swallowing, Hematologic/Lymphatic - No abnormal bruising or bleeding, Respiratory - No shortness of breath. Positive for cough. No pleuritic pain, Cardiovascular - No angina pain, Gastrointestinal - No nausea or vomiting. No heartburn or acid reflux. No diarrhea or constipation. No blood in the stool or black stools, Genitourinary (M) - No dysuria or hematuria. No urinary frequency. No urgency or incontinence, Musculoskeletal - He has chronic back pain, Neurologic - No headache or dizziness, Psychiatric - No anxiety or depression. No insomnia. Vital Signs: Performed on Jan 17, 2020 09:09 Height - 68.00 in Weight - 171.0 lbs (HIGH) BSA - 1.91 sq.m BMI - 26.00 Temperature - 98.0 F (LOW) Pulse - 72 /min Respiration - 24 /min BP - 142/89 mm(hg) (HIGH) O2 Sat - 100 % Pain - 10 Performance Status: 0 - Fully active, able to carry on all predisease activities without restrictions. (ECOG) Physical Examination: ENMT - No mouth sores, no thrush, no jaundice, Respiratory - Lungs are clear to auscultation, Cardiovascular - Regular rate and rhythm of heart, Abdomen - Soft, bowel sounds present, Extremities - No visible edema. Lab/Imaging: Test performed on Dec 13, 2019 08:12 WBC 7.5 10 3/uL RBC 4.76 10 6/uL HGB 14.3 g/dL HCT 45.3 % MCV 95.2 fL MCH 30.0 pg MCHC 31.6 g/dL RDW 16.5 % Platelet Count 137 10 3/cmm MPV 9.9 fL Neutrophils 4.57 10 3/uL Lymphocytes 1.7 10 3/uL Monocytes 0.4 10 3/uL Eosinophils 0.7 10 3/uL Basophils 0.1 10 3/uL Neutrophil % 60.7 % Lymphocyte % 22.4 % Monocyte % 5.3 % Eosinophil % 9.5 % Basophils % 1.6 % NRBC % 0 % Test performed on Sep 30, 2019 11:04 NRBC 0.0 /100WBC Impression: 1.Polycythemia vera JAk2 positive, confirmed in October 2016 at that time patient moved down to [place], and established care in hematology clinic there, where he was treated with phlebotomies every 3-4 month, and as per patient, the last one was done in October 2018, now has moved back to [place]. Leukocytosis with left shift, probably due to infections like hepatitis C or chronic inflammation like peripheral vascular disease involving the right leg or chronic bronchitis/ COPD due to smoking or [id number] medication like androgen containing or idiopathic . lab workup done on 11/07/2016, showed BCR ABL negative LAP score 109 normal being 25 to 130 peripheral blood smear no abnormality seen started on hydroxyurea 500 mg by mouth daily on 05/30/2019 while continue with phlebotomies as needed chronic and heavy smoking smoke 1-2 pack a day for 40 years family history of polycythemia vera 3. Thrombocytosis probably reactive but myeloproliferative disorder cannot be ruled out 4. .Right leg pain/peripheral vascular disease involving the right leg Plain x-ray of the femur, tibia and fibula done on 11/08/2016 showed normal findings no abnormality seen 5. .Hepatitis C on 12 week course of Zepatier,elbavin plus grazoprevin 7. Presumably tick bite status post 2 weeks course of antibiotics with doxycycline 8. Chronic smoker 1-2 pack per day for 40 years 9. COPD 10. .Gallstones Plan: Discussed with patient regarding his labs white blood count 7.1 hemoglobin 14.5 hematocrit 44.8 platelets 190,000 Clinically, patient is doing well with no new signs symptoms except chronic back pain for which he is going to see his PMD Dr. Elmore. His follow-up labs shows his hematocrit is in desirable range, patient was advised to continue with his hydroxyurea and daily aspirin and maintain good hydration and then return to clinic in 2 months with CBC Signed By: Niya Sears M.D. <<Signature on File>>
== END 2020-01-17 07:07 | disposition home or self-care (01) ==
LOC: ONCMED 07:08
PROVIDERS: PCP Internal Medicine; Visit Provider Internal Medicine Hematology & Oncology
DX: D45 Polycythemia vera (principal); D72.829 Elevated white blood cell count, unspecified; B19.20 Unspecified viral hepatitis C without hepatic coma; F17.210 Nicotine dependence, cigarettes, uncomplicated; J44.9 Chronic obstructive pulmonary disease, unspecified
CPT/HCPCS: 36415; 85025; 99214

== ENCOUNTER 2020-03-12 09:47 | Outpatient (CLI) | payer MEDICAID, SELFPAY ==
[2020-03-12 10:30] LABS: Basophils # 0.1 10^3/uL (0.0-0.1); Basophils % 1.1 %; Eosinophils # 0.6 10^3/uL (0.0-0.8); Eosinophils % 8.4 %; Hematocrit 42.7 % (42.0-52.0); Hemoglobin 14.1 g/dL (11.7-16.6); Lymphocytes # 1.5 10^3/uL (0.8-4.8); Lymphocytes % 21.8 %; Mean Platelet Volume 10.3 fL (7.4-10.4); Monocytes # 0.4 10^3/uL (0.2-0.9); Monocytes % 6.3 %; Neutrophils # 4.35 10^3/uL (1.8-7.7); Nucleated Red Blood Cells % 0 %; Platelet Count 184 10^3/cmm (130-400); Red Blood Count 4.27 10^6/uL (4.1-5.3); Red Cell Distribution Width 14.9 % (12.1-15.1)
[2020-03-12 11:25] LABS: Alanine Aminotransferase 11 U/L (0-41); Albumin Level 4.1 g/dL (3.5-5.2); Alkaline Phosphatase 86 IU/L (40-130); Anion Gap 14.1 (5-19); Aspartate Amino Transferase 14 U/L (0-40); Blood Urea Nitrogen 14 mg/dL (8-23); Calcium 8.5 mg/dL (8.5-10.5); Carbon Dioxide 23 mmol/L (22-29); Chloride 103 mmol/L (98-107); Globulin 2.5 g/dL (1.3-4.6); Glomerular Filtration Rate 85.2 mL/min (90-130); Glucose 91 mg/dL (65-115); Osmolality Calculated 282 mOsm/kg (285-295); Potassium 4.1 mmol/L (3.5-5.1); Sodium 136 mmol/L (136-145); Total Bilirubin 0.2 mg/dL (0.15-1.2); Total Protein 6.6 g/dL (6.6-8.7)
== END 2020-03-12 09:48 | disposition home or self-care (01) ==
LOC: ONCMED 09:49
PROVIDERS: Nurse Practitioner Family; PCP Internal Medicine; Visit Provider Internal Medicine Hematology & Oncology
DX: D45 Polycythemia vera (principal); D72.829 Elevated white blood cell count, unspecified; B19.20 Unspecified viral hepatitis C without hepatic coma
CPT/HCPCS: 80053; 85025

== ENCOUNTER 2020-05-11 07:29 | Outpatient (CLI) | payer MEDICAID, SELFPAY ==
--- NOTE | 2020-05-11 08:00 | MR_ITS ---
WS: [id number] MRI LUMBAR SPINE NONCONTRAST HISTORY: M54.9 - Dorsalgia, unspecified COMPARISON: 09/20/2016 TECHNIQUE: Sagittal and axial multisequence imaging is submitted. Mild straightening of the normal lumbar lordosis. Posterior alignment is normal. Disc spaces are narrowed. No significant narrowing at L2-3, L3-4 and L4-5. Endplate osteophytes at al l levels. Degenerative changes in the discs with progression since 2017. Most significant progression is at L2-3 and L4-5. Conus terminates normally at L1-2 disc level. L1-L2: Normal. L2-L3: Mild annular disc bulging and osteophytic ridging. Focal disc osteophyte extending into the RI GHT foramen effacing the fat and similar to the prior study. There is significant encroachment upon t he L2 nerve root. Additional disc osteophyte in the RIGHT subarticular recess. Moderate bilateral fac et joint arthritis. L3-L4: Mild diffuse annular disc bulging and facet joint arthritis. Mild encroachment into the RIGHT foramen. Mild bilateral foraminal narrowing. L4-L5: Moderate-sized disc osteophyte complex and associated facet joint hypertrophy extending into t he LEFT foramen with effacement of fat. Severe LEFT foraminal stenosis due to combination of factors as described above. Progression of stenosis since the prior study. L5-S1: Mild bilateral facet joint arthritis. RIGHT foraminal disc protrusion and osteophyte causing s ignificant effacement of fat in the RIGHT L5-S1 foramen and abutment of the L5 nerve root. Moderate p rogression since the prior study. Atherosclerotic changes within the aorta. MR/MR lumbar spine wo con* [id number] IMPRESSION: 1. Severe RIGHT foraminal stenosis at L2-3 due to disc osteophyte complex, sim ilar to 2017. 2. Severe LEFT foraminal stenosis at L4-5 with mild progression since 2017 due to disc osteophyte complex. 3. Moderate to severe stenosis RIGHT foramen L5-S1 due to disc osteophyte comp mary with moderate progression since the prior study. 4. Bilateral facet joint arthritis with advancing degenerative disc disease an d spondylosis throughout the lumbar spine since 2017.
== END 2020-05-11 07:30 | disposition home or self-care (01) ==
PROVIDERS: PCP Nurse Practitioner Family; Visit Provider Nurse Practitioner Family
DX: M48.061 Spinal stenosis, lumbar region without neurogenic claudication (principal); M25.78 Osteophyte, vertebrae; M48.07 Spinal stenosis, lumbosacral region; M51.36 Other intervertebral disc degeneration, lumbar region; M47.816 Spondylosis without myelopathy or radiculopathy, lumbar region
CPT/HCPCS: 72148

== ENCOUNTER 2020-05-11 07:34 | Outpatient (CLI) | payer MEDICAID, SELFPAY ==
[2020-05-11 09:12] LABS: Basophils # 0.1 10^3/uL (0.0-0.1); Basophils % 1.2 %; Eosinophils # 0.7 10^3/uL (0.0-0.8); Eosinophils % 8.6 %; Hemoglobin 15.7 g/dL (11.7-16.6); Lymphocytes # 1.6 10^3/uL (0.8-4.8); Lymphocytes % 20.1 %; Mean Corpuscular HGB Conc 33.4 g/dL (30.0-36.0); Mean Corpuscular Hemoglobin 34.1 pg (28.0-34.0); Mean Platelet Volume 10.3 fL (7.4-10.4); Monocytes # 0.5 10^3/uL (0.2-0.9); Monocytes % 6.4 %; Neutrophils # 5.07 10^3/uL (1.8-7.7); Neutrophils % 63.3 %; Nucleated Red Blood Cells % 0 %; Platelet Count 276 10^3/cmm (130-400); Red Blood Count 4.61 10^6/uL (4.1-5.3); Red Cell Distribution Width 14.2 % (12.1-15.1)
== END 2020-05-11 07:35 | disposition home or self-care (01) ==
LOC: ONCMED 07:34
PROVIDERS: PCP Nurse Practitioner Family; Visit Provider Internal Medicine Hematology & Oncology
DX: D45 Polycythemia vera (principal); D72.829 Elevated white blood cell count, unspecified; B19.20 Unspecified viral hepatitis C without hepatic coma
CPT/HCPCS: 36415; 85025

== ENCOUNTER 2020-05-12 05:53 | Outpatient (CLI) | payer MEDICAID, SELFPAY ==
[2020-05-12] MEDS: sodium chloride 0.9% 250 ML IV (13:31)
== END 2020-05-12 05:54 | disposition home or self-care (01) ==
LOC: ONCMED 05:55
PROVIDERS: PCP Nurse Practitioner Family; Visit Provider Internal Medicine Hematology & Oncology
DX: D45 Polycythemia vera (principal); D72.829 Elevated white blood cell count, unspecified; B19.20 Unspecified viral hepatitis C without hepatic coma
CPT/HCPCS: 99195; J7050

== ENCOUNTER 2020-07-31 07:24 | Outpatient (CLI) | payer MEDICAID, SELFPAY ==
[2020-07-31 07:55] LABS: Basophils # 0.1 10^3/uL (0.0-0.1); Basophils % 0.8 %; Eosinophils # 0.7 10^3/uL (0.0-0.8); Hematocrit 47.5 % (42.0-52.0); Hemoglobin 15.7 g/dL (11.7-16.6); Lymphocytes # 1.6 10^3/uL (0.8-4.8); Lymphocytes % 17.4 %; Mean Corpuscular HGB Conc 33.1 g/dL (30.0-36.0); Mean Corpuscular Hemoglobin 32.9 pg (28.0-34.0); Mean Corpuscular Volume 99.6 fL (80-94); Mean Platelet Volume 9.9 fL (7.4-10.4); Monocytes # 0.6 10^3/uL (0.2-0.9); Monocytes % 7.1 %; Neutrophils # 5.89 10^3/uL (1.8-7.7); Neutrophils % 66.1 %; Nucleated Red Blood Cells % 0 %; Platelet Count 377 10^3/cmm (130-400); Red Blood Count 4.77 10^6/uL (4.1-5.3); Red Cell Distribution Width 13.6 % (12.1-15.1); White Blood Count 8.9 10^3/uL (4.0-10.0)
== END 2020-07-31 07:25 | disposition home or self-care (01) ==
LOC: ONCMED 07:26
PROVIDERS: PCP Nurse Practitioner Family; Visit Provider Internal Medicine Hematology & Oncology
DX: D45 Polycythemia vera (principal)
CPT/HCPCS: 85025; 99195

== ENCOUNTER 2020-10-01 07:09 | Outpatient (CLI) | payer MEDICAID, SELFPAY ==
[2020-10-01 08:56] LABS: Basophils # 0.1 10^3/uL (0.0-0.1); Basophils % 0.9 %; Eosinophils # 1.1 10^3/uL (0.0-0.8); Eosinophils % 9.9 %; Hematocrit 45.1 % (42.0-52.0); Hemoglobin 15.1 g/dL (11.7-16.6); Lymphocytes # 1.8 10^3/uL (0.8-4.8); Lymphocytes % 16.8 %; Mean Corpuscular HGB Conc 33.5 g/dL (30.0-36.0); Mean Corpuscular Hemoglobin 31.1 pg (28.0-34.0); Mean Platelet Volume 9.8 fL (7.4-10.4); Monocytes # 0.7 10^3/uL (0.2-0.9); Monocytes % 6.8 %; Neutrophils # 7.06 10^3/uL (1.8-7.7); Nucleated Red Blood Cells % 0 %; Platelet Count 559 10^3/cmm (130-400); Red Blood Count 4.85 10^6/uL (4.1-5.3); Red Cell Distribution Width 13.7 % (12.1-15.1); White Blood Count 10.9 10^3/uL (4.0-10.0)
--- NOTE | 2020-10-22 14:13 | ONC FU_ITS ---
[facility] Patient Note Patient: Fransisco Denis Unit #: [id number]: 1955 Dictated By: Shannon LockhartDate of Visit: Oct 01, 2020 Onc MED Follow-Up/Prog Note Chief Complaint: History of Present Illness: Mr. Denis is a 64-year-old gentleman with history of leukocytosis for 12 years. He presented with an elevated platelet count as well as hematocrit. CBC on 10/14/2016 showed white blood count 14.1 hemoglobin 17.3 hematocrit 50.9 platelet count 516,000 with elevated neutrophil count at 10.4 normal range being 1.4-6.5. Mr Denis reported that any time he would go to emergency room for his other medical problems, doctors always make comment regarding the high white blood count and prescribe antibiotics . He got more concerned when he was told about his elevated hematocrit and platelets. Mr Denis reported that his brother has polycythemia and is on chemotherapy pills. He denies any weight loss, he denies any fever chills, he denies any night sweats or peripheral lymphadenopathy. he denies any chronic sinus problem but has smoker's cough has been smoking 1 pack per day for last 40 years. he denies any hemoptysis or hematemesis. he denies any abdominal fullness. He was treated for a tick bite with doxycycline- which he finished a 2 week course. s/p 12 week course of Zepatier and elbavarin plus grazoprevin for hepatitis C. Interim history: Mr Denis was lost follow-up when he moved to [place] to take care of his elderly brother. He established his care there in hematology clinic where he was diagnosed with polycythemia vera and treated with phlebotomies on a regular basis. As per patient, his hematocrit at that time had gone up to 60. He reported that he was getting phlebotomies every 3-4 months. During his last visit to our clinic in October 2016, JAK2 mutation was ordered and at that time resulted came back positive for mutation which did confirm polycythemia vera. Quit smoking in April 2019. He was sarted on hydroxyurea 500 mg daily on 05/30/2019 and continued with phlebotomies to keep hematocrit equal to or less than 45. Hydroxyurea increased to 1000 mg on Monday, Monday and Monday and continue with the 500 mg daily on remaining days per week from 500 mg p.o. daily on September 30, 2019. Mr Denis cut down his hydroxyurea dose to 500 mg daily (instead of alternating with 1000mg every other day) around October, because of intolerance e.g. generalized weakness and fatigue. He reports since then he has remained on the 500 mg daily and tolerating this well. He underwent CT scan of chest which showed questionable lung nodules, too small to biopsy, Dr. Elmore is following his questionable lung nodules. Patient underwent follow-up CT scan of chest on 01/03/2020 which showed multiple small noncalcified pulmonary nodules are stable compared to July 08, 2019, largest in the left upper lobe measuring 9 mm. Recommended six-month follow-up. No mediastinal or hilar lymphadenopathy. Stable splenomegaly. Left lower lobe pneumonitis has resolved. Mr. Denis had recent follow-up with Dr. Sears on January 17, 2020. He remained on the Hydrea 500 mg daily at that time and was tolerating it well. He has had interim CBCs drawn and his hematocrit in April and July was 47 and 47.5 respectively. Nurses notes indicated that he was offered phlebotomy in July but I see no charting to indicate that that was actually done. He reports overall he continues to do well. He denies any new shortness of breath orthopnea. He has had no chest pain, palpitations. He has chronic pain which is managed by his primary care. He denies any new concerns. His appetite is fair. His energy is good. He denies chills or any episodes of fever. He denies any known Covid exposure. He states his bowels and bladder are normal for him. He denies any neuropathy. His ECOG is 1. Past Medical History: Chronic obstructive pulmonary disease Hepatitis C Past Surgical History: Excision of skin cancer in 2015 - back, face, and shoulder Broken neck in 2003 Shoulder repair in 1996 Appendectomy in 1964 Allergies: No Known Allergies. Medications: Aspirin Adult 1 Tablet (of 325 mg) Oral daily Atorvastatin Calcium 1 Tablet (of 20 mg) Oral daily EQ Ibuprofen 4 Tablet (of 200 mg) Oral b.i.d. Hydroxyurea 1 Tablet (of 500 mg) Oral b.i.d. Family History: Mr. Denis's mother at age 77: osteoporosis, and COPD. Mr. Denis's father at age 67: lung cancer with metastasis. Mr. Denis has 2 brothers: 2 alive. Mr. Denis's first brother's osteoporosis. Another brother's polycythemia vera. He has 1 sister who is . Social History: Mr. Denis is single and he is a disabled. He is a daily smoker who has smoked 1.0 pack/day for 41 years. He has no history of drinking. Mr. Denis reports the following support systems: lives in own house and adequate transportation available for expected visits. His diet consists of regular meals. He indicates his activity level as: daily activities. Review Of Symptoms: <See Above> Vital Signs: Performed on Oct 01, 2020 10:15 Height - 68.00 in Weight - 174.8 lbs (HIGH) BSA - 1.93 sq.m BMI - 26.58 Temperature - 98.1 F (LOW) Pulse - 87 /min Respiration - 18 /min BP - 147/99 mm(hg) (HIGH) O2 Sat - 97 % Pain - 7 Fatigue - 8,1 - No physically strenuous activity, but ambulatory and able to carry out light or sedentary work (e.g. office work, light house work). (ECOG) Physical Examination: Constitutional Alert, oriented, no acute distress. Skin pink, warm and dry. Head Normocephalic; atraumatic. Eyes Conjunctivae and sclerae are clear and without icterus. Pupils are reactive and equal. Neck Supple without masses or thyromegaly. No jugular venous distension. Respiratory Lungs are clear to auscultation without rhonchi or wheezing. Cardiovascular Regular rate and rhythm of heart without murmurs,clicks, gallops or rubs. Back/Spine Non-tender to palpation. Extremities No visible deformities, no cyanosis, clubbing or edema. Musculoskeletal No tenderness or swelling, normal range of motion without obvious weakness. Integumentary No rashes or lesions. Neurologic No sensory or motor deficits, normal cerebellar function, normal gait. Psychiatric Alert and oriented times three. Coherent speech. Verbalizes understanding of our discussions today. Laboratory:Test performed on Oct 01, 2020 08:19 WBC 10.9 10 3/uL RBC 4.85 10 6/uL HGB 15.1 g/dL HCT 45.1 % MCV 93.0 fL MCH 31.1 pg MCHC 33.5 g/dL RDW 13.7 % Platelet Count 559 10 3/cmm MPV 9.8 fL Neutrophils 7.06 10 3/uL Lymphocytes 1.8 10 3/uL Monocytes 0.7 10 3/uL Eosinophils 1.1 10 3/uL Basophils 0.1 10 3/uL Neutrophil % 65.0 % Lymphocyte % 16.8 % Monocyte % 6.8 % Eosinophil % 9.9 % Basophils % 0.9 % NRBC % 0 % Impression: 1. Polycythemia vera JAk2 positive, confirmed in October 2016 at that time patient moved down to [place], and established care in hematology clinic there, where he was treated with phlebotomies every 3-4 month, and as per patient, the last one was done in October 2018, now has moved back to [place]. Leukocytosis with left shift, probably due to infections like hepatitis C or chronic inflammation like peripheral vascular disease involving the right leg or chronic bronchitis/ COPD due to smoking or dxom-zji-ryspnoe medication like androgen containing or idiopathic . lab workup done on 11/07/2016, showed BCR ABL negative LAP score 109 normal being 25 to 130 peripheral blood smear no abnormality seen started on hydroxyurea 500 mg by mouth daily on 05/30/2019 while continue with phlebotomies as needed chronic and heavy smoking smoke 1-2 pack a day for 40 years family history of polycythemia vera 3. Thrombocytosis probably reactive but myeloproliferative disorder cannot be ruled out 4. .Right leg pain/peripheral vascular disease involving the right leg Plain x-ray of the femur, tibia and fibula done on 11/08/2016 showed normal findings no abnormality seen 5. .Hepatitis C on 12 week course of Zepatier,elbavin plus grazoprevin 7. Presumably tick bite status post 2 weeks course of antibiotics with doxycycline 8. Chronic smoker 1-2 pack per day for 40 years 9. COPD 10. .Gallstones Plan/Problems Addressed at this Visit: 1. Polycythemia vera JAK2 positive. A. Continue Hydrea 500 mg daily. It is noted that the last refill I can find in her chart was March 2020 at which time he received 60 tablets with an additional 3 refills. This would be consistent with him taking it once daily. B. Continue aspirin 325 mg daily. C. We will plan to recheck his CBC CMP in 2 months and follow-up with Dr. Sears at that time. His goal is to keep his hematocrit 45 or less. D. Today's labs were reviewed in detail and discussed with Mr. Denis and a copy was given to him. WBC 10.9, hemoglobin 15.1, platelets 559,000 ANC is 7060. He states he feels good and does not feel that he needs a phlebotomy today. E. Mr. Denis was encouraged to contact us in the interim should questions or problems arise. F. He does follow with his primary care Rita Gaitan at [facility]. G. He has severe right foraminal stenosis at L2-L3 due to disc osteophyte complex; severe left foraminal stenosis at L4-L5 with mild progression since 2017 due to disc osteophyte complex; moderate to severe stenosis right foramen L5-S1 due to disc osteophyte complex with moderate progression since 2017. He has bilateral facet joint arthritis with advancing degenerative disc disease and spondylosis throughout the lumbar spine since 2017. This is per MRI of the lumbar spine from 05/11/2020. His pain is managed by his PCP team. Signed By: Shannon Lockhart-, AOP Niya Sears MD <<Signature on File>>
== END 2020-10-01 07:10 | disposition home or self-care (01) ==
LOC: ONCMED 07:12
PROVIDERS: PCP Nurse Practitioner Family; Visit Provider Nurse Practitioner
DX: D45 Polycythemia vera (principal)
CPT/HCPCS: 36415; 85025; 99214

== ENCOUNTER 2020-11-02 10:47 | Outpatient (CLI) | payer MEDICAID, SELFPAY ==
[2020-11-02 11:30] LABS: Basophils # 0.1 10^3/uL (0.0-0.1); Basophils % 1.1 %; Eosinophils # 0.8 10^3/uL (0.0-0.8); Eosinophils % 9.1 %; Hematocrit 45.3 % (42.0-52.0); Hemoglobin 14.8 g/dL (11.7-16.6); Lymphocytes # 1.6 10^3/uL (0.8-4.8); Lymphocytes % 18.5 %; Mean Corpuscular HGB Conc 32.7 g/dL (30.0-36.0); Mean Platelet Volume 10.2 fL (7.4-10.4); Monocytes # 0.6 10^3/uL (0.2-0.9); Monocytes % 6.8 %; Neutrophils # 5.67 10^3/uL (1.8-7.7); Neutrophils % 63.9 %; Nucleated Red Blood Cells % 0 %; Platelet Count 497 10^3/cmm (130-400); Red Blood Count 4.77 10^6/uL (4.1-5.3); Red Cell Distribution Width 14.7 % (12.1-15.1); White Blood Count 8.9 10^3/uL (4.0-10.0)
== END 2020-11-02 10:48 | disposition home or self-care (01) ==
LOC: ONCMED 10:48
PROVIDERS: PCP Nurse Practitioner Family; Visit Provider Internal Medicine Medical Oncology
DX: D45 Polycythemia vera (principal)
CPT/HCPCS: 36415; 85025

== ENCOUNTER 2020-12-16 14:34 | Outpatient (CLI) | payer MEDICAID, SELFPAY ==
[2020-12-16 15:19] LABS: Basophils # 0.1 10^3/uL (0.0-0.1); Basophils % 1.2 %; Eosinophils # 0.8 10^3/uL (0.0-0.8); Eosinophils % 9.9 %; Hematocrit 36.8 % (42.0-52.0); Hemoglobin 11.9 g/dL (11.7-16.6); Lymphocytes # 2.1 10^3/uL (0.8-4.8); Lymphocytes % 25.4 %; Mean Corpuscular HGB Conc 32.3 g/dL (30.0-36.0); Mean Corpuscular Hemoglobin 30.3 pg (28.0-34.0); Mean Corpuscular Volume 93.6 fl (80-94); Mean Platelet Volume 10.6 fL (7.4-10.4); Monocytes # 0.7 10^3/uL (0.2-0.9); Monocytes % 8.4 %; Neutrophils # 4.53 10^3/uL (1.8-7.7); Neutrophils % 54.5 %; Nucleated Red Blood Cells % 0 %; Platelet Count 291 10^3/cmm (130-400); Red Blood Count 3.93 10^6/uL (4.1-5.3); Red Cell Distribution Width 14.6 % (12.1-15.1); White Blood Count 8.3 10^3/uL (4.0-10.0)
[2020-12-16 15:41] LABS: Alanine Aminotransferase 11 U/L (0-41); Albumin Level 4.2 g/dL (3.5-5.2); Alkaline Phosphatase 92 IU/L (40-130); Anion Gap 14.8 (5-19); Aspartate Amino Transferase 14 U/L (0-40); Blood Urea Nitrogen 14 mg/dL (8-23); Calcium 8.6 mg/dL (8.5-10.5); Carbon Dioxide 24 mmol/L (22-29); Chloride 103 mmol/L (98-107); Globulin 2.5 g/dL (1.3-4.6); Glomerular Filtration Rate 97.3 mL/min (90-130); Glucose 94 mg/dL (65-115); Osmolality Calculated 286 mOsm/kg (285-295); Potassium 3.8 mmol/L (3.5-5.1); Sodium 138 mmol/L (136-145); Total Bilirubin 0.2 mg/dL (0.15-1.2); Total Protein 6.7 g/dL (6.6-8.7)
== END 2020-12-16 14:35 | disposition home or self-care (01) ==
LOC: ONCMED 14:37
PROVIDERS: PCP Nurse Practitioner Family; Visit Provider Internal Medicine Hematology & Oncology
DX: D45 Polycythemia vera (principal)
CPT/HCPCS: 36415; 80053; 85025

== ENCOUNTER 2020-12-18 05:46 | Outpatient (CLI) | payer MEDICAID, SELFPAY ==
--- NOTE | 2020-12-18 13:04 | ONC FU_ITS ---
Dr. Sears follow up note Patient: Fransisco Denis Unit #: [id number]: 1955 Dicatated By: Niya Sears M.D.Date of Visit:Dec 18, 2020 Onc Med Follow-up/Prog Note History of Present Illness: Mr. Denis is a 65-year-old gentleman with history of leukocytosis for 12 years. He presented with an elevated platelet count as well as hematocrit. CBC on 10/14/2016 showed white blood count 14.1 hemoglobin 17.3 hematocrit 50.9 platelet count 516,000 with elevated neutrophil count at 10.4 normal range being 1.4-6.5. Mr Denis reported that any time he would go to emergency room for his other medical problems, doctors always make comment regarding the high white blood count and prescribe antibiotics . He got more concerned when he was told about his elevated hematocrit and platelets. Mr Denis reported that his brother has polycythemia and is on chemotherapy pills. He denies any weight loss, he denies any fever chills, he denies any night sweats or peripheral lymphadenopathy. he denies any chronic sinus problem but has smoker's cough has been smoking 1 pack per day for last 40 years. he denies any hemoptysis or hematemesis. he denies any abdominal fullness. He was treated for a tick bite with doxycycline- which he finished a 2 week course. s/p 12 week course of Zepatier and elbavarin plus grazoprevin for hepatitis C. Interim history: Mr Denis was lost follow-up when he moved to [place] to take care of his elderly brother. He established his care there in hematology clinic where he was diagnosed with polycythemia vera and treated with phlebotomies on a regular basis. As per patient, his hematocrit at that time had gone up to 60. He reported that he was getting phlebotomies every 3-4 months. During his last visit to our clinic in October 2016, JAK2 mutation was ordered and at that time resulted came back positive for mutation which did confirm polycythemia vera. Quit smoking in April 2019. He was sarted on hydroxyurea 500 mg daily on 05/30/2019 and continued with phlebotomies to keep hematocrit equal to or less than 45. Hydroxyurea increased to 1000 mg on Monday, Monday and Monday and continue with the 500 mg daily on remaining days per week from 500 mg p.o. daily on September 30, 2019. Mr Denis cut down his hydroxyurea dose to 500 mg daily (instead of alternating with 1000mg every other day) around October, because of intolerance e.g. generalized weakness and fatigue. He reports since then he has remained on the 500 mg daily and tolerating this well. He underwent CT scan of chest which showed questionable lung nodules, too small to biopsy, Dr. Elmore is following his questionable lung nodules. Patient underwent follow-up CT scan of chest on 01/03/2020 which showed multiple small noncalcified pulmonary nodules are stable compared to July 08, 2019, largest in the left upper lobe measuring 9 mm. Recommended six-month follow-up. No mediastinal or hilar lymphadenopathy. Stable splenomegaly. Left lower lobe pneumonitis has resolved. Came for follow-up, denies any specific complaint except episode of severe nosebleed about 2 weeks ago after second dose of Pfizer Covid vaccine, as per patient he was in [place] when he experienced sudden onset of nosebleed went to local hospital where he was treated and sent home, as per patient it recurred again with excessive nosebleed and fist size blood clots patient went to local hospital from where he was transferred to tertiary care in [facility], as per patient CT scan of sinus showed bleeding from his sinuses again he was managed and his bleeding resolved but continue off and on for couple of days and then resolved. As per patient he did not take his aspirin and hydroxyurea since then. Otherwise no fever chills, no nausea or vomiting, no diarrhea constipation, no more episode of nosebleed or gum bleed, no melena or hematochezia, no hemoptysis or hematemesis, no jaundice overall feeling much better since he is off all the medication Medications: EQ Ibuprofen 4 Tablet (of 200 mg) Oral b.i.d. Allergies: No Known Allergies. Review of Systems: Review of Systems is not available for this patient. Vital Signs: Performed on Dec 18, 2020 08:40 Height - 68.00 in Weight - 175.2 lbs (HIGH) BSA - 1.93 sq.m BMI - 26.64 Temperature - 97.3 F (LOW) Pulse - 74 /min Respiration - 18 /min BP - 139/83 mm(hg) O2 Sat - 98 % Pain - 6 Fatigue - 6 Performance Status: 0 - Fully active, able to carry on all predisease activities without restrictions. (ECOG) Physical Examination: ENMT - No mouth sores, no thrush, no jaundice, Respiratory - Lungs are clear to auscultation, Cardiovascular - Regular rate and rhythm of heart, Abdomen - Soft, bowel sounds present, Extremities - No visible edema. Lab/Imaging: Test performed on Nov 02, 2020 10:53 WBC 8.9 10 3/uL RBC 4.77 10 6/uL HGB 14.8 g/dL HCT 45.3 % MCV 95.0 fL MCH 31.0 pg MCHC 32.7 g/dL RDW 14.7 % Platelet Count 497 10 3/cmm MPV 10.2 fL Neutrophils 5.67 10 3/uL Lymphocytes 1.6 10 3/uL Monocytes 0.6 10 3/uL Eosinophils 0.8 10 3/uL Basophils 0.1 10 3/uL Neutrophil % 63.9 % Lymphocyte % 18.5 % Monocyte % 6.8 % Eosinophil % 9.1 % Basophils % 1.1 % NRBC % 0 % Test performed on Nov 02, 2020 00:00 Manual Diff Cancelled via OM: Cancelled in Connected System Impression: 1. Polycythemia vera JAk2 positive, confirmed in October 2016 at that time patient moved down to [place], and established care in hematology clinic there, where he was treated with phlebotomies every 3-4 month, and as per patient, the last one was done in October 2018, now has moved back to [place]. Leukocytosis with left shift, probably due to infections like hepatitis C or chronic inflammation like peripheral vascular disease involving the right leg or chronic bronchitis/ COPD due to smoking or ehym-fkj-tattwua medication like androgen containing or idiopathic . lab workup done on 11/07/2016, showed BCR ABL negative LAP score 109 normal being 25 to 130 peripheral blood smear no abnormality seen started on hydroxyurea 500 mg by mouth daily on 05/30/2019 while continue with phlebotomies as needed chronic and heavy smoking smoke 1-2 pack a day for 40 years family history of polycythemia vera 3. Thrombocytosis probably reactive but myeloproliferative disorder cannot be ruled out 4. .Right leg pain/peripheral vascular disease involving the right leg Plain x-ray of the femur, tibia and fibula done on 11/08/2016 showed normal findings no abnormality seen 5. .Hepatitis C on 12 week course of Zepatier,elbavin plus grazoprevin 7. Presumably tick bite status post 2 weeks course of antibiotics with doxycycline 8. Chronic smoker 1-2 pack per day for 40 years 9. COPD 10. .Gallstones Plan: Discussed with patient regarding his labs white blood count 8.3 hemoglobin 11.9 g compared to 14.8 g previously hematocrit 36.8 platelets 291,000 CMP within normal limits Clinically, patient doing well with no new signs symptoms except recent episode of excessive nosebleed as per patient happened after second dose of Pfizer Covid vaccine. Patient is off aspirin as well as hydroxyurea since nosebleed happened about 2 weeks ago, his follow-up CBC shows hemoglobin in normal range as well as platelet count, at this point we will continue to monitor and patient will stay off hydroxyurea as well as aspirin and then return to clinic in 1 month with CBC, at that time we will discuss further treatment as patient is not considering any form of treatment as he is feeling so much better since he is off all the medication. Signed By: Niya Sears M.D. <<Signature on File>>
== END 2020-12-18 05:47 | disposition home or self-care (01) ==
LOC: ONCMED 05:47
PROVIDERS: PCP Nurse Practitioner Family; Visit Provider Internal Medicine Hematology & Oncology
DX: D45 Polycythemia vera (principal); J44.9 Chronic obstructive pulmonary disease, unspecified; I73.89 Other specified peripheral vascular diseases; D47.3 Essential (hemorrhagic) thrombocythemia; B19.20 Unspecified viral hepatitis C without hepatic coma; F17.210 Nicotine dependence, cigarettes, uncomplicated
CPT/HCPCS: 99214

== ENCOUNTER → 2021-01-14 08:41 | Outpatient (BNVA) | payer MEDICAID, SELFPAY | PROVIDERS: PCP Nurse Practitioner Family; Visit Provider Internal Medicine Hematology & Oncology | DX: D47.3 Essential (hemorrhagic) thrombocythemia (principal) | CPT/HCPCS: 85025 ==

== ENCOUNTER 2021-01-15 07:59 | Outpatient (CLI) | payer MEDICAID, SELFPAY ==
--- NOTE | 2021-01-15 12:55 | ONC FU_ITS ---
Dr. Sears follow up note Patient: Fransisco Denis Unit #: [id number]: [id number] Dicatated By: Niya Sears M.D.Date of Visit:Jan 15, 2021 Onc Med Follow-up/Prog Note History of Present Illness: Mr. Denis is a 65-year-old gentleman with history of leukocytosis for 12 years. He presented with an elevated platelet count as well as hematocrit. CBC on 10/14/2016 showed white blood count 14.1 hemoglobin 17.3 hematocrit 50.9 platelet count 516,000 with elevated neutrophil count at 10.4 normal range being 1.4-6.5. Mr Denis reported that any time he would go to emergency room for his other medical problems, doctors always make comment regarding the high white blood count and prescribe antibiotics . He got more concerned when he was told about his elevated hematocrit and platelets. Mr Denis reported that his brother has polycythemia and is on chemotherapy pills. He denies any weight loss, he denies any fever chills, he denies any night sweats or peripheral lymphadenopathy. he denies any chronic sinus problem but has smoker's cough has been smoking 1 pack per day for last 40 years. he denies any hemoptysis or hematemesis. he denies any abdominal fullness. He was treated for a tick bite with doxycycline- which he finished a 2 week course. s/p 12 week course of Zepatier and elbavarin plus grazoprevin for hepatitis C. Interim history: Mr Denis was lost follow-up when he moved to [place] to take care of his elderly brother. He established his care there in hematology clinic where he was diagnosed with polycythemia vera and treated with phlebotomies on a regular basis. As per patient, his hematocrit at that time had gone up to 60. He reported that he was getting phlebotomies every 3-4 months. During his last visit to our clinic in October 2016, JAK2 mutation was ordered and at that time resulted came back positive for mutation which did confirm polycythemia vera. Quit smoking in April 2019. He was sarted on hydroxyurea 500 mg daily on 05/30/2019 and continued with phlebotomies to keep hematocrit equal to or less than 45. Hydroxyurea increased to 1000 mg on Monday, Monday and Monday and continue with the 500 mg daily on remaining days per week from 500 mg p.o. daily on September 30, 2019. Mr Denis cut down his hydroxyurea dose to 500 mg daily (instead of alternating with 1000mg every other day) around October, because of intolerance e.g. generalized weakness and fatigue. He reports since then he has remained on the 500 mg daily and tolerating this well. He underwent CT scan of chest which showed questionable lung nodules, too small to biopsy, Dr. Elmore is following his questionable lung nodules. Patient underwent follow-up CT scan of chest on 01/03/2020 which showed multiple small noncalcified pulmonary nodules are stable compared to July 08, 2019, largest in the left upper lobe measuring 9 mm. Recommended six-month follow-up. No mediastinal or hilar lymphadenopathy. Stable splenomegaly. Left lower lobe pneumonitis has resolved. Came for follow-up, denies any specific complaints, no fever chills, no nausea or vomiting, no diarrhea constipation, no more episode of nosebleed, no headaches blurred vision or double vision, still smoking about half pack a day. Patient said he has history of pulmonary nodules when he had CT scan of chest done in [place] and he was advised to get follow-up scan. And feeling much better since since he is off hydroxyurea and aspirin. Medications: EQ Ibuprofen 4 Tablet (of 200 mg) Oral b.i.d. Allergies: No Known Allergies. Review of Systems: Review of Systems is not available for this patient. Vital Signs: Performed on Jan 15, 2021 08:11 Height - 68.00 in Weight - 174 lbs (LOW) BSA - 1.93 sq.m BMI - 26.46 Temperature - 97.5 F (LOW) Pulse - 73 /min Respiration - 18 /min BP - 145/99 mm(hg) (HIGH) O2 Sat - 99 % Pain - 7 Fatigue - 4 Performance Status: 0 - Fully active, able to carry on all predisease activities without restrictions. (ECOG) Physical Examination: ENMT - No mouth sores, no thrush, no jaundice, Respiratory - Poor air entry otherwise clear, Cardiovascular - Regular rate and rhythm of heart, Abdomen - Soft, bowel sounds present, Extremities - No visible edema. Lab/Imaging: Test performed on Jan 14, 2021 08:41 WBC 10.4 10^3/uL RBC 4.78 10^6/uL HGB 13.0 g/dL HCT 41.5 % MCV 86.8 fl MCH 27.2 pg MCHC 31.3 g/dL RDW 16.2 % Platelet Count 483 10^3/uL MPV 11.3 fl Neutrophils 6.55 10^3/uL Lymphocytes 1.6 10^3/uL Monocytes 0.7 10^3/uL Eosinophils 1.4 10^3/uL Basophils 0.1 10^3/uL Neutrophil % 63.2 % Lymphocyte % 15.2 % Monocyte % 7.0 % Eosinophil % 13.0 % Basophils % 1.1 % NRBC 0.0 /100 WBC NRBC % 0 % Test performed on Nov 02, 2020 00:00 Manual Diff Cancelled via OM: Cancelled in Connected System Impression: 1. Polycythemia vera JAk2 positive, confirmed in October 2016 at that time patient moved down to [place], and established care in hematology clinic there, where he was treated with phlebotomies every 3-4 month, and as per patient, the last one was done in October 2018, now has moved back to [place]. Leukocytosis with left shift, probably due to infections like hepatitis C or chronic inflammation like peripheral vascular disease involving the right leg or chronic bronchitis/ COPD due to smoking or kulr-zwj-jymnzus medication like androgen containing or idiopathic . lab workup done on 11/07/2016, showed BCR ABL negative LAP score 109 normal being 25 to 130 peripheral blood smear no abnormality seen started on hydroxyurea 500 mg by mouth daily on 05/30/2019 while continue with phlebotomies as needed chronic and heavy smoking smoke 1-2 pack a day for 40 years family history of polycythemia vera 3. Thrombocytosis probably reactive but myeloproliferative disorder cannot be ruled out 4. .Right leg pain/peripheral vascular disease involving the right leg Plain x-ray of the femur, tibia and fibula done on 11/08/2016 showed normal findings no abnormality seen 5. .Hepatitis C on 12 week course of Zepatier,elbavin plus grazoprevin 7. Presumably tick bite status post 2 weeks course of antibiotics with doxycycline 8. Chronic smoker 1-2 pack per day for 40 years 9. COPD 10. .Gallstones Plan: Discussed with patient regarding his labs white blood count 10.4 hemoglobin 13 compared to 11.9 previously hematocrit 41.5 compared to 36.8 on December 16, 2020 platelets 483,000 Clinically, patient is doing well with no new signs symptoms no more episode of nosebleed has follow-up labs shows CBC normal range, As far as polycythemia vera is concerned, patient was advised to restart hydroxyurea but at low-dose instead of daily, will start him on hydroxyurea 500 mg p.o. Monday, Monday and Monday per week along with a daily aspirin 81 mg. And then return to clinic in 1 month and as per patient he has history of pulmonary nodule per CT scan done in [place] and patient is a chronic, heavy smoker and still active, at this point we will do follow-up CT scan of chest. Return to clinic in 1 month with CBC and follow-up CT scan of chest. Patient was advised to quit smoking was offered any assistance he may need. Signed By: Niya Sears M.D. <<Signature on File>>
== END 2021-01-15 08:00 | disposition home or self-care (01) ==
LOC: ONCMED 08:00
PROVIDERS: PCP Nurse Practitioner Family; Visit Provider Internal Medicine Hematology & Oncology
DX: D75.1 Secondary polycythemia (principal); D72.829 Elevated white blood cell count, unspecified; J44.9 Chronic obstructive pulmonary disease, unspecified; F17.210 Nicotine dependence, cigarettes, uncomplicated; B19.20 Unspecified viral hepatitis C without hepatic coma; Z79.899 Other long term (current) drug therapy; Z83.2 Family history of diseases of the blood and blood-forming organs and certain disorders involving the immune mechanism
CPT/HCPCS: 99214

== ENCOUNTER 2021-02-24 11:32 | Outpatient (CLI) | payer MEDICAID, SELFPAY ==
[2021-02-24 12:04] LABS: Basophils # 0.1 10^3/uL (0.0-0.1); Basophils % 1.4 %; Eosinophils # 0.7 10^3/uL (0.0-0.8); Eosinophils % 8.3 %; Hematocrit 41.6 % (42.0-52.0); Hemoglobin 12.8 g/dL (11.7-16.6); Lymphocytes # 1.8 10^3/uL (0.8-4.8); Lymphocytes % 20.6 %; Mean Corpuscular HGB Conc 30.8 g/dL (30.0-36.0); Mean Corpuscular Hemoglobin 24.2 pg (28.0-34.0); Mean Corpuscular Volume 78.6 fl (80-94); Mean Platelet Volume 9.6 fL (7.4-10.4); Monocytes # 0.5 10^3/uL (0.2-0.9); Monocytes % 6.1 %; Neutrophils # 5.57 10^3/uL (1.8-7.7); Neutrophils % 63.3 %; Nucleated Red Blood Cells % 0 %; Platelet Count 168 10^3/cmm (130-400); Red Blood Count 5.29 10^6/uL (4.1-5.3); Red Cell Distribution Width 19.1 % (12.1-15.1); White Blood Count 8.8 10^3/uL (4.0-10.0)
[2021-02-24 12:21] LABS: Alanine Aminotransferase 11 U/L (0-41); Albumin Level 4.1 g/dL (3.5-5.2); Alkaline Phosphatase 83 IU/L (40-130); Aspartate Amino Transferase 17 U/L (0-40); Blood Urea Nitrogen 13 mg/dL (8-23); Calcium 8.7 mg/dL (8.5-10.5); Carbon Dioxide 24 mmol/L (22-29); Chloride 101 mmol/L (98-107); Globulin 2.5 g/dL (1.3-4.6); Glomerular Filtration Rate 113.5 mL/min (90-130); Glucose 125 mg/dL (65-115); Osmolality Calculated 284 mOsm/kg (285-295); Sodium 136 mmol/L (136-145); Total Bilirubin 0.3 mg/dL (0.15-1.2); Total Protein 6.6 g/dL (6.6-8.7)
== END 2021-02-24 11:33 | disposition home or self-care (01) ==
PROVIDERS: PCP Nurse Practitioner Family; Visit Provider Internal Medicine Medical Oncology
DX: D75.1 Secondary polycythemia (principal); Z79.899 Other long term (current) drug therapy
CPT/HCPCS: 36415; 80053; 85025

== ENCOUNTER 2021-02-24 12:32 | Outpatient (CLI) | payer MEDICAID, SELFPAY ==
--- NOTE | 2021-02-24 12:45 | CT_ITS ---
WS: [id number] CT CHEST TECHNIQUE: Contrast enhanced CT of the chest with coronal and sagittal reformatted images. CLINICAL INFORMATION: SMOKER W/HX OF LUNG NODULES COMPARISON: CT chest October 03, 2019 and July 08, 2019 DLP: 792.[address] scans at [place] use at least one of these dose optimization techniques: automated e xposure control; mA and/or kV adjustment per patient size (includes targeted exams where dose is matc hed to clinical indication); or iterative reconstruction. FINDINGS: Left upper lobe pulmonary nodule has progressed since the prior 2 examinations with slight surroundin g spiculation today. Today this measures approximately 1.6 x 1.1CM. Findings are suspicious for neopl asm. Slight associated pleural thickening. Small subpleural nodule right upper lobe also increased in size slightly today measuring 7 mm compared to 5 mm previous. 4 mm right upper lobe nodule is stable. 5 mm nodule in the lingula is stable. Small 4 mm nodule in th e left fissure is stable. Normal caliber thoracic aorta. A few prominent anterior mediastinal lymph nodes not pathologically en larged unchanged. No axillary lymphadenopathy. Stable large gallstone in the gallbladder measuring 17 mm. Adrenal glands are normal. Disc osteophyte complex L2-3 with moderate central canal stenosis and impingement right subarticular recess. Moderat e right foraminal narrowing. CT/CT chest w con* [id number] IMPRESSION: 1. Progressed left upper lobe nodule today measuring 1.6 x 1.1 cm with surroun ding spiculation. This has a suspicious appearance and recommend further evalua tion with PET/CT. 2. Small subpleural right upper lobe nodule is slightly larger today measuring 7 mm compared to 5 mm previous. 3. Remainder of the tiny subcentimeter nodules are stable. 4. No mediastinal or hilar lymphadenopathy. 5. Prominent gallstone in the gallbladder unchanged.
[2021-02-24] MEDS: iohexol 350 mg/mL 100 mL Btl IV (13:07)
== END 2021-02-24 12:33 | disposition home or self-care (01) ==
PROVIDERS: PCP Nurse Practitioner Family; Visit Provider Internal Medicine Hematology & Oncology
DX: F17.210 Nicotine dependence, cigarettes, uncomplicated (principal); R91.8 Other nonspecific abnormal finding of lung field
CPT/HCPCS: 71260

== ENCOUNTER 2021-03-03 05:47 | Outpatient (CLI) | payer MEDICAID, SELFPAY ==
--- NOTE | 2021-03-03 17:36 | ONC FU_ITS ---
Dr. Sears follow up note Patient: Fransisco Denis Unit #: [id number]: 1955 Dicatated By: Niya Sears M.D.Date of Visit:Mar 03, 2021 Onc Med Follow-up/Prog Note History of Present Illness: Mr. Denis is a 65-year-old gentleman with history of leukocytosis for 12 years. He presented with an elevated platelet count as well as hematocrit. CBC on 10/14/2016 showed white blood count 14.1 hemoglobin 17.3 hematocrit 50.9 platelet count 516,000 with elevated neutrophil count at 10.4 normal range being 1.4-6.5. Mr Denis reported that any time he would go to emergency room for his other medical problems, doctors always make comment regarding the high white blood count and prescribe antibiotics . He got more concerned when he was told about his elevated hematocrit and platelets. Mr Denis reported that his brother has polycythemia and is on chemotherapy pills. He denies any weight loss, he denies any fever chills, he denies any night sweats or peripheral lymphadenopathy. he denies any chronic sinus problem but has smoker's cough has been smoking 1 pack per day for last 40 years. he denies any hemoptysis or hematemesis. he denies any abdominal fullness. He was treated for a tick bite with doxycycline- which he finished a 2 week course. s/p 12 week course of Zepatier and elbavarin plus grazoprevin for hepatitis C. Interim history: Mr Denis was lost follow-up when he moved to [place] to take care of his elderly brother. He established his care there in hematology clinic where he was diagnosed with polycythemia vera and treated with phlebotomies on a regular basis. As per patient, his hematocrit at that time had gone up to 60. He reported that he was getting phlebotomies every 3-4 months. During his last visit to our clinic in October 2016, JAK2 mutation was ordered and at that time resulted came back positive for mutation which did confirm polycythemia vera. Quit smoking in April 2019. He was sarted on hydroxyurea 500 mg daily on 05/30/2019 and continued with phlebotomies to keep hematocrit equal to or less than 45. Hydroxyurea increased to 1000 mg on Monday, Monday and Monday and continue with the 500 mg daily on remaining days per week from 500 mg p.o. daily on September 30, 2019. Mr Denis cut down his hydroxyurea dose to 500 mg daily (instead of alternating with 1000mg every other day) around October, because of intolerance e.g. generalized weakness and fatigue. He reports since then he has remained on the 500 mg daily and tolerating this well. He underwent CT scan of chest which showed questionable lung nodules, too small to biopsy, Dr. Elmore is following his questionable lung nodules. Patient underwent follow-up CT scan of chest on 01/03/2020 which showed multiple small noncalcified pulmonary nodules are stable compared to July 08, 2019, largest in the left upper lobe measuring 9 mm. Recommended six-month follow-up. No mediastinal or hilar lymphadenopathy. Stable splenomegaly. Left lower lobe pneumonitis has resolved. CT scan of the chest done on February 24, 2021 showed progressed left upper lobe nodule today measures 1.6 x 1.1 cm with surrounding spiculation, suspicious appearance Smaller subpleural right upper lobe nodule is slightly larger today measuring 7 mm compared to 5 mm previously. No mediastinal or hilar lymphadenopathy. Prominent gallstone in gallbladder unchanged. Remainder of tiny subcentimeter nodules in the lungs are stable. Came for follow-up, denies any specific complaint except since his last visit in December, patient developed flulike symptom, thought he had Covid infection but never gone for testing and stayed at home, after couple of weeks his symptoms improved. Patient said he restarted his hydroxyurea 500 mg 3 times a week but then developed above-mentioned symptoms and stopped taking it and did not try again. And also still smoking. Recently underwent CT scan of chest for left upper lung nodule and he is here to discuss the results Medications: EQ Ibuprofen 4 Tablet (of 200 mg) Oral b.i.d., Hydroxyurea 1 Tablet (of 500 mg) Oral b.i.d. Allergies: No Known Allergies. Review of Systems: Review of Systems is not available for this patient. Vital Signs: Performed on Mar 03, 2021 13:58 Height - 68.00 in Weight - 172 lbs (LOW) BSA - 1.92 sq.m BMI - 26.15 Temperature - 98.5 F Pulse - 89 /min Respiration - 18 /min BP - 163/79 mm(hg) (HIGH) O2 Sat - 98 % Pain - 5 Fatigue - 5 Performance Status: 0 - Fully active, able to carry on all predisease activities without restrictions. (ECOG) Physical Examination: ENMT - No mouth sores, no thrush, no jaundice, Respiratory - Poor air entry otherwise clear, Cardiovascular - Regular rate and rhythm of heart, Abdomen - Soft, bowel sounds present, Extremities - No visible edema. Lab/Imaging: Test performed on Feb 24, 2021 11:54 Sodium 136 mmol/L Potassium 4.0 mmol/L Chloride 101 mmol/L CO2 24 mmol/L Anion Gap 15.0 BUN 13 mg/dL Creatinine 0.7 mg/dL Cr Clearance (Est) 119.0200 mL/min eGFR 113.5 mL/min Glucose 125 mg/dL Osmolality - Calculated 284 mOsm/kg Calcium 8.7 mg/dL Protein, Total 6.6 g/dL Albumin 4.1 g/dL Globulin 2.5 g/dL Bilirubin, Total 0.3 mg/dL ALT (SGPT) 11 U/L AST (SGOT) 17 U/L Alkaline Phosphatase 83 IU/L WBC 8.8 10 3/uL RBC 5.29 10 6/uL HGB 12.8 g/dL HCT 41.6 % MCV 78.6 fl MCH 24.2 pg MCHC 30.8 g/dL RDW 19.1 % Platelet Count 168 10 3/cmm MPV 9.6 fL Neutrophils 5.57 10 3/uL Lymphocytes 1.8 10 3/uL Monocytes 0.5 10 3/uL Eosinophils 0.7 10 3/uL Basophils 0.1 10 3/uL Neutrophil % 63.3 % Lymphocyte % 20.6 % Monocyte % 6.1 % Eosinophil % 8.3 % Basophils % 1.4 % NRBC % 0 % Test performed on Jan 14, 2021 08:41 NRBC 0.0 /100 WBC Test performed on Nov 02, 2020 00:00 Manual Diff Cancelled via OM: Cancelled in Connected System Impression: 1. Polycythemia vera JAk2 positive, confirmed in October 2016 at that time patient moved down to [place], and established care in hematology clinic there, where he was treated with phlebotomies every 3-4 month, and as per patient, the last one was done in October 2018, now has moved back to [place]. Leukocytosis with left shift, probably due to infections like hepatitis C or chronic inflammation like peripheral vascular disease involving the right leg or chronic bronchitis/ COPD due to smoking or vcso-pgt-olrxsyf medication like androgen containing or idiopathic . lab workup done on 11/07/2016, showed BCR ABL negative LAP score 109 normal being 25 to 130 peripheral blood smear no abnormality seen started on hydroxyurea 500 mg by mouth daily on 05/30/2019 while continue with phlebotomies as needed chronic and heavy smoking smoke 1-2 pack a day for 40 years family history of polycythemia vera 3. Thrombocytosis probably reactive but myeloproliferative disorder cannot be ruled out 4. .Right leg pain/peripheral vascular disease involving the right leg Plain x-ray of the femur, tibia and fibula done on 11/08/2016 showed normal findings no abnormality seen 5. .Hepatitis C on 12 week course of Zepatier,elbavin plus grazoprevin 7. Presumably tick bite status post 2 weeks course of antibiotics with doxycycline 8. Chronic smoker 1-2 pack per day for 40 years 9. COPD 10. .Gallstones Plan: Discussed with patient regarding his labs white blood count 8.8 hemoglobin 12.8 hematocrit 41.6 platelets 168,000 CMP within normal limit except glucose 125 and follow-up CT scan of chest which shows progressive left upper lobe nodule measuring 1.6 x 1.1 cm and is stable tiny subcentimeter nodules, small subpleural right upper lobe nodule is slightly larger now 7 mm compared to 5 mm previously. Clinically, patient is doing well with no new signs symptoms, his follow-up labs shows hemoglobin/hematocrit in desirable range, patient was on hydroxyurea for polycythemia vera but patient has been noncompliant, initially stopped taking because of her intolerance now he was started on reduced dose e.g. 500 mg 3 times a week which he took it for couple of days then developed flulike symptoms thought he may have Covid infection but did not go for testing and also stopped taking hydroxyurea but his lab work-up done today shows hematocrit to be in desired range and patient does not want to start hydroxyurea rather prefer observation. His follow-up CT scan of chest shows left upper lobe nodule has progressed, CT PET scan was recommended so we will order that and also refer him to pulmonology for evaluation Patient return to clinic after CT PET scan for further discussion Patient was advised to quit smoking and was offered any assistance he may need. Signed By: Niya Sears M.D. <<Signature on File>>
== END 2021-03-03 05:48 | disposition home or self-care (01) ==
LOC: ONCMED 05:47
PROVIDERS: PCP Nurse Practitioner Family; Visit Provider Internal Medicine Hematology & Oncology
DX: D45 Polycythemia vera (principal); F17.210 Nicotine dependence, cigarettes, uncomplicated; D75.838 Other thrombocytosis; I73.9 Peripheral vascular disease, unspecified; B17.10 Acute hepatitis C without hepatic coma; Z79.2 Long term (current) use of antibiotics; K80.20 Calculus of gallbladder without cholecystitis without obstruction; J44.9 Chronic obstructive pulmonary disease, unspecified; Z86.19 Personal history of other infectious and parasitic diseases; Z79.899 Other long term (current) drug therapy
CPT/HCPCS: 99214

== ENCOUNTER 2021-04-02 08:28 | Outpatient (CLI) | payer MEDICARE, MEDICAID, SELFPAY ==
--- NOTE | 2021-04-02 10:17 | ONC FU_ITS ---
Dr. Sears follow up note Patient: Fransisco Denis Unit #: [id number]: 1955 Dicatated By: Niya Sears M.D.Date of Visit:Apr 02, 2021 Onc Med Follow-up/Prog Note History of Present Illness: Mr. Denis is a 65-year-old gentleman with history of leukocytosis for 12 years. He presented with an elevated platelet count as well as hematocrit. CBC on 10/14/2016 showed white blood count 14.1 hemoglobin 17.3 hematocrit 50.9 platelet count 516,000 with elevated neutrophil count at 10.4 normal range being 1.4-6.5. Mr Denis reported that any time he would go to emergency room for his other medical problems, doctors always make comment regarding the high white blood count and prescribe antibiotics . He got more concerned when he was told about his elevated hematocrit and platelets. Mr Denis reported that his brother has polycythemia and is on chemotherapy pills. He denies any weight loss, he denies any fever chills, he denies any night sweats or peripheral lymphadenopathy. he denies any chronic sinus problem but has smoker's cough has been smoking 1 pack per day for last 40 years. he denies any hemoptysis or hematemesis. he denies any abdominal fullness. He was treated for a tick bite with doxycycline- which he finished a 2 week course. s/p 12 week course of Zepatier and elbavarin plus grazoprevin for hepatitis C. Interim history: Mr Denis was lost follow-up when he moved to [place] to take care of his elderly brother. He established his care there in hematology clinic where he was diagnosed with polycythemia vera and treated with phlebotomies on a regular basis. As per patient, his hematocrit at that time had gone up to 60. He reported that he was getting phlebotomies every 3-4 months. During his last visit to our clinic in October 2016, JAK2 mutation was ordered and at that time resulted came back positive for mutation which did confirm polycythemia vera. Quit smoking in April 2019. He was sarted on hydroxyurea 500 mg daily on 05/30/2019 and continued with phlebotomies to keep hematocrit equal to or less than 45. Hydroxyurea increased to 1000 mg on Monday, Monday and Monday and continue with the 500 mg daily on remaining days per week from 500 mg p.o. daily on September 30, 2019. Mr Denis cut down his hydroxyurea dose to 500 mg daily (instead of alternating with 1000mg every other day) around October, because of intolerance e.g. generalized weakness and fatigue. He reports since then he has remained on the 500 mg daily and tolerating this well. He underwent CT scan of chest which showed questionable lung nodules, too small to biopsy, Dr. Elmore is following his questionable lung nodules. Patient underwent follow-up CT scan of chest on 01/03/2020 which showed multiple small noncalcified pulmonary nodules are stable compared to July 08, 2019, largest in the left upper lobe measuring 9 mm. Recommended six-month follow-up. No mediastinal or hilar lymphadenopathy. Stable splenomegaly. Left lower lobe pneumonitis has resolved. CT scan of the chest done on February 24, 2021 showed progressed left upper lobe nodule today measures 1.6 x 1.1 cm with surrounding spiculation, suspicious appearance Smaller subpleural right upper lobe nodule is slightly larger today measuring 7 mm compared to 5 mm previously. No mediastinal or hilar lymphadenopathy. Prominent gallstone in gallbladder unchanged. Remainder of tiny subcentimeter nodules in the lungs are stable. CT PET scan done on March 27, 2021 showed FDG positive lingular measuring 1.2 x 1.7 cm with SUV of 7.9, bilateral COPD changes. Likely inflammatory uptake in left hilar nodes Came for follow-up, denies any specific complaints, no fever chills, no nausea or vomiting, no diarrhea constipation, no hemoptysis or hematemesis, no new bony pains, no headaches, patient is off hydroxyurea but taking daily aspirin. Patient is here to discuss about his CT PET scan which was done on March 27, 2021 Medications: EQ Ibuprofen 4 Tablet (of 200 mg) Oral b.i.d., Hydroxyurea 1 Tablet (of 500 mg) Oral b.i.d. Allergies: No Known Allergies. Review of Systems: Review of Systems is not available for this patient. Vital Signs: Performed on Apr 02, 2021 08:41 Height - 68.00 in Weight - 172.0 lbs BSA - 1.92 sq.m BMI - 26.15 Temperature - 98.3 F (LOW) Pulse - 78 /min Respiration - 16 /min BP - 141/94 mm(hg) (HIGH) O2 Sat - 99 % Pain - 4 Fatigue - 5 Performance Status: 0 - Fully active, able to carry on all predisease activities without restrictions. (ECOG) Physical Examination: ENMT - No mouth sores, no thrush, no jaundice, Respiratory - Poor air entry otherwise clear, Cardiovascular - Regular rate and rhythm of heart, Abdomen - Soft, bowel sounds present, Extremities - No visible edema. Lab/Imaging: Test performed on Feb 24, 2021 11:54 Sodium 136 mmol/L Potassium 4.0 mmol/L Chloride 101 mmol/L CO2 24 mmol/L Anion Gap 15.0 BUN 13 mg/dL Creatinine 0.7 mg/dL Cr Clearance (Est) 119.0200 mL/min eGFR 113.5 mL/min Glucose 125 mg/dL Osmolality - Calculated 284 mOsm/kg Calcium 8.7 mg/dL Protein, Total 6.6 g/dL Albumin 4.1 g/dL Globulin 2.5 g/dL Bilirubin, Total 0.3 mg/dL ALT (SGPT) 11 U/L AST (SGOT) 17 U/L Alkaline Phosphatase 83 IU/L WBC 8.8 10 3/uL RBC 5.29 10 6/uL HGB 12.8 g/dL HCT 41.6 % MCV 78.6 fl MCH 24.2 pg MCHC 30.8 g/dL RDW 19.1 % Platelet Count 168 10 3/cmm MPV 9.6 fL Neutrophils 5.57 10 3/uL Lymphocytes 1.8 10 3/uL Monocytes 0.5 10 3/uL Eosinophils 0.7 10 3/uL Basophils 0.1 10 3/uL Neutrophil % 63.3 % Lymphocyte % 20.6 % Monocyte % 6.1 % Eosinophil % 8.3 % Basophils % 1.4 % NRBC % 0 % Test performed on Jan 14, 2021 08:41 NRBC 0.0 /100 WBC Test performed on Nov 02, 2020 00:00 Manual Diff Cancelled via OM: Cancelled in Connected System Impression: 1. Polycythemia vera JAk2 positive, confirmed in October 2016 at that time patient moved down to [place], and established care in hematology clinic there, where he was treated with phlebotomies every 3-4 month, and as per patient, the last one was done in October 2018, now has moved back to [place]. Leukocytosis with left shift, probably due to infections like hepatitis C or chronic inflammation like peripheral vascular disease involving the right leg or chronic bronchitis/ COPD due to smoking or [id number] medication like androgen containing or idiopathic . lab workup done on 11/07/2016, showed BCR ABL negative LAP score 109 normal being 25 to 130 peripheral blood smear no abnormality seen started on hydroxyurea 500 mg by mouth daily on 05/30/2019 while continue with phlebotomies as needed chronic and heavy smoking smoke 1-2 pack a day for 40 years family history of polycythemia vera 3. Thrombocytosis probably reactive but myeloproliferative disorder cannot be ruled out 4. .Right leg pain/peripheral vascular disease involving the right leg Plain x-ray of the femur, tibia and fibula done on 11/08/2016 showed normal findings no abnormality seen 5. .Hepatitis C on 12 week course of Zepatier,elbavin plus grazoprevin 7. Presumably tick bite status post 2 weeks course of antibiotics with doxycycline 8. Chronic smoker 1-2 pack per day for 40 years 9. COPD 10. .Gallstones CT PET scan done on March 27, 2021 showed 1.2 x 1.7 cm lingular mass with SUV of 7.9, no evidence of distant mets, now being referred to cardiothoracic surgery. Plan: Discussed with patient regarding his CT PET scan finding which was done on March 27, 2021 shows a 1.2 x 1.7 cm mass in lingula with SUV of 7.9 which is high probability of malignancy and no other distant metastatic disease seen. Modest nonfocal activity in the left hilar is more likely to be reactive. Patient is already scheduled to see pulmonology on April 09, 2021, now being referred to cardiothoracic surgery Dr. Mahajan today, case was discussed with Dr. Mahajan this morning and he agreed to evaluate him. Patient is still smoking and, was advised to quit smoking and was offered any assistance he may need We will see him back after cardiothoracic evaluation. Signed By: Niya Sears M.D. <<Signature on File>>
== END 2021-04-02 08:29 | disposition home or self-care (01) ==
LOC: ONCMED 08:31
PROVIDERS: PCP Nurse Practitioner Family; Visit Provider Internal Medicine Hematology & Oncology
DX: D72.829 Elevated white blood cell count, unspecified (principal); B19.20 Unspecified viral hepatitis C without hepatic coma
CPT/HCPCS: 99214

== ENCOUNTER → 2021-04-22 15:36 | Outpatient (BNVA) | payer MEDICARE, MEDICAID, SELFPAY | PROVIDERS: PCP Nurse Practitioner Family; Visit Provider Internal Medicine Pulmonary Disease | DX: Z01.811 Encounter for preprocedural respiratory examination (principal); Z01.812 Encounter for preprocedural laboratory examination; Z20.822 Contact with and (suspected) exposure to COVID-19 | CPT/HCPCS: 87635 ==

== ENCOUNTER 2021-04-29 08:36 | Outpatient (CLI) | payer MEDICARE, MEDICAID, SELFPAY ==
--- NOTE | 2021-04-29 10:04 | PFTS_ITS ---
Date of Study:04/29/21 Date of Dictation: 04/29/2021 MECHANICS: Pre-bronchodilator forced vital capacity (FVC) is normal. Pre-bronchodilator forced expiratory volume in one second (FEV1) is normal. FEV1/FVC is normal. There is no postbronchodilator study. FLOW VOLUME LOOP: Normal. LUNG VOLUMES: Total lung capacity (TLC) is normal. Residual volume (RV) is normal. DIFFUSING CAPACITY FOR CARBON MONOXIDE: Normal . INTERPRETATION: The PFTs are normal. MTDD
== END 2021-04-29 08:37 | disposition home or self-care (01) ==
LOC: RT 08:39
PROVIDERS: PCP Nurse Practitioner Family; Visit Provider Internal Medicine Pulmonary Disease
DX: Z01.811 Encounter for preprocedural respiratory examination (principal); J43.2 Centrilobular emphysema
CPT/HCPCS: 94010; 94618; 94726; 94729

== ENCOUNTER 2021-05-21 08:34 | Outpatient (CLI) | payer MEDICARE, MEDICAID, SELFPAY ==
[2021-05-21 09:10] LABS: Basophils # 0.1 10^3/uL (0.0-0.1); Basophils % 0.9 %; Eosinophils # 0.5 10^3/uL (0.0-0.8); Eosinophils % 3.8 %; Hematocrit 49.4 % (42.0-52.0); Hemoglobin 14.8 g/dL (11.7-16.6); Lymphocytes # 2.3 10^3/uL (0.8-4.8); Lymphocytes % 19.6 %; Mean Corpuscular Hemoglobin 21.6 pg (28.0-34.0); Mean Corpuscular Volume 72.2 fl (80-94); Mean Platelet Volume 10.3 fL (7.4-10.4); Monocytes # 1.1 10^3/uL (0.2-0.9); Monocytes % 9.4 %; Neutrophils # 7.53 10^3/uL (1.8-7.7); Neutrophils % 64.2 %; Nucleated Red Blood Cells % 0 %; Platelet Count 634 10^3/cmm (130-400); Red Blood Count 6.84 10^6/uL (4.1-5.3); Red Cell Distribution Width 18.8 % (12.1-15.1); White Blood Count 11.7 10^3/uL (4.0-10.0)
== END 2021-05-21 08:35 | disposition home or self-care (01) ==
PROVIDERS: PCP Nurse Practitioner Family; Visit Provider Internal Medicine Hematology & Oncology
DX: D45 Polycythemia vera (principal)
CPT/HCPCS: 36415; 85025; 99195

== ENCOUNTER 2021-06-03 07:47 | Outpatient (CLI) | payer MEDICARE, MEDICAID, SELFPAY ==
[2021-06-03 08:26] LABS: Basophils # 0.1 10^3/uL (0.0-0.1); Basophils % 1.5 %; Eosinophils # 0.3 10^3/uL (0.0-0.8); Eosinophils % 3.3 %; Hematocrit 46.4 % (42.0-52.0); Hemoglobin 13.8 g/dL (11.7-16.6); Lymphocytes # 1.9 10^3/uL (0.8-4.8); Lymphocytes % 20.2 %; Mean Corpuscular HGB Conc 29.7 g/dL (30.0-36.0); Mean Corpuscular Hemoglobin 21.9 pg (28.0-34.0); Mean Corpuscular Volume 73.7 fl (80-94); Mean Platelet Volume 10.8 fL (7.4-10.4); Monocytes # 0.7 10^3/uL (0.2-0.9); Monocytes % 7.9 %; Neutrophils # 6.16 10^3/uL (1.8-7.7); Neutrophils % 66.6 %; Nucleated Red Blood Cells % 0 %; Platelet Count 410 10^3/cmm (130-400); Red Cell Distribution Width 19.5 % (12.1-15.1); White Blood Count 9.3 10^3/uL (4.0-10.0)
[2021-06-03] MEDS: sodium chloride 0.9% 250 ML 999 ML IV (10:45)
--- NOTE | 2021-06-03 16:14 | ONC FU_ITS ---
Dr. Sears follow up note Patient: Fransisco Denis Unit #: [id number]: 1955 Dicatated By: Niya Sears M.D.Date of Visit:Jun 03, 2021 Onc Med Follow-up/Prog Note History of Present Illness: Mr. Denis is a 66-year-old gentleman with history of leukocytosis for 12 years. He presented with an elevated platelet count as well as hematocrit. CBC on 10/14/2016 showed white blood count 14.1 hemoglobin 17.3 hematocrit 50.9 platelet count 516,000 with elevated neutrophil count at 10.4 normal range being 1.4-6.5. Mr Denis reported that any time he would go to emergency room for his other medical problems, doctors always make comment regarding the high white blood count and prescribe antibiotics . He got more concerned when he was told about his elevated hematocrit and platelets. Mr Denis reported that his brother has polycythemia and is on chemotherapy pills. He denies any weight loss, he denies any fever chills, he denies any night sweats or peripheral lymphadenopathy. he denies any chronic sinus problem but has smoker's cough has been smoking 1 pack per day for last 40 years. he denies any hemoptysis or hematemesis. he denies any abdominal fullness. He was treated for a tick bite with doxycycline- which he finished a 2 week course. s/p 12 week course of Zepatier and elbavarin plus grazoprevin for hepatitis C. Interim history: Mr Denis was lost follow-up when he moved to [place] to take care of his elderly brother. He established his care there in hematology clinic where he was diagnosed with polycythemia vera and treated with phlebotomies on a regular basis. As per patient, his hematocrit at that time had gone up to 60. He reported that he was getting phlebotomies every 3-4 months. During his last visit to our clinic in October 2016, JAK2 mutation was ordered and at that time resulted came back positive for mutation which did confirm polycythemia vera. Quit smoking in April 2019. He was sarted on hydroxyurea 500 mg daily on 05/30/2019 and continued with phlebotomies to keep hematocrit equal to or less than 45. Hydroxyurea increased to 1000 mg on Monday, Monday and Monday and continue with the 500 mg daily on remaining days per week from 500 mg p.o. daily on September 30, 2019. Mr Denis cut down his hydroxyurea dose to 500 mg daily (instead of alternating with 1000mg every other day) around October, because of intolerance e.g. generalized weakness and fatigue. He reports since then he has remained on the 500 mg daily and tolerating this well. He underwent CT scan of chest which showed questionable lung nodules, too small to biopsy, Dr. Elmore is following his questionable lung nodules. Patient underwent follow-up CT scan of chest on 01/03/2020 which showed multiple small noncalcified pulmonary nodules are stable compared to July 08, 2019, largest in the left upper lobe measuring 9 mm. Recommended six-month follow-up. No mediastinal or hilar lymphadenopathy. Stable splenomegaly. Left lower lobe pneumonitis has resolved. CT scan of the chest done on February 24, 2021 showed progressed left upper lobe nodule today measures 1.6 x 1.1 cm with surrounding spiculation, suspicious appearance Smaller subpleural right upper lobe nodule is slightly larger today measuring 7 mm compared to 5 mm previously. No mediastinal or hilar lymphadenopathy. Prominent gallstone in gallbladder unchanged. Remainder of tiny subcentimeter nodules in the lungs are stable. CT PET scan done on March 27, 2021 showed FDG positive lingular measuring 1.2 x 1.7 cm with SUV of 7.9, bilateral COPD changes. Likely inflammatory uptake in left hilar nodes Came for follow-up, denies any specific complaints, no fever chills, no nausea or vomiting, no diarrhea constipation, no headaches blurred vision double vision, no shortness of breath, still smoking about pack a day, tolerating hydroxyurea well as per patient he stopped taking aspirin as left lung mass resection is under consideration, he was referred to [facility] for evaluation for VATS, patient still waiting for the consult. Medications: EQ Ibuprofen 4 Tablet (of 200 mg) Oral b.i.d., Hydroxyurea 1 Tablet (of 500 mg) Oral b.i.d. Allergies: No Known Allergies. Review of Systems: Review of Systems is not available for this patient. Vital Signs: Performed on Jun 03, 2021 09:59 Height - 68.00 in Weight - 180.8 lbs (HIGH) BSA - 1.96 sq.m BMI - 27.49 Temperature - 98.0 F (LOW) Pulse - 93 /min Respiration - 18 /min BP - 148/116 mm(hg) (HIGH) O2 Sat - 100 % Pain - 0 Fatigue - 5 Performance Status: 0 - Fully active, able to carry on all predisease activities without restrictions. (ECOG) Physical Examination: ENMT - No mouth sores, no thrush, no jaundice no cervical lymphadenopathy, Respiratory - Poor air entry, no wheezing or rales, Cardiovascular - Regular rate and rhythm of heart, Abdomen - Soft, bowel sounds present, Extremities - No visible edema. Lab/Imaging: Test performed on Feb 24, 2021 11:54 Sodium 136 mmol/L Potassium 4.0 mmol/L Chloride 101 mmol/L CO2 24 mmol/L Anion Gap 15.0 BUN 13 mg/dL Creatinine 0.7 mg/dL Cr Clearance (Est) 119.0200 mL/min eGFR 113.5 mL/min Glucose 125 mg/dL Osmolality - Calculated 284 mOsm/kg Calcium 8.7 mg/dL Protein, Total 6.6 g/dL Albumin 4.1 g/dL Globulin 2.5 g/dL Bilirubin, Total 0.3 mg/dL ALT (SGPT) 11 U/L AST (SGOT) 17 U/L Alkaline Phosphatase 83 IU/L WBC 8.8 10 3/uL RBC 5.29 10 6/uL HGB 12.8 g/dL HCT 41.6 % MCV 78.6 fl MCH 24.2 pg MCHC 30.8 g/dL RDW 19.1 % Platelet Count 168 10 3/cmm MPV 9.6 fL Neutrophils 5.57 10 3/uL Lymphocytes 1.8 10 3/uL Monocytes 0.5 10 3/uL Eosinophils 0.7 10 3/uL Basophils 0.1 10 3/uL Neutrophil % 63.3 % Lymphocyte % 20.6 % Monocyte % 6.1 % Eosinophil % 8.3 % Basophils % 1.4 % NRBC % 0 % Test performed on Jan 14, 2021 08:41 NRBC 0.0 /100 WBC Impression: 1. Polycythemia vera JAk2 positive, confirmed in October 2016 at that time patient moved down to [place], and established care in hematology clinic there, where he was treated with phlebotomies every 3-4 month, and as per patient, the last one was done in October 2018, now has moved back to [place]. Leukocytosis with left shift, probably due to infections like hepatitis C or chronic inflammation like peripheral vascular disease involving the right leg or chronic bronchitis/ COPD due to smoking or [id number] medication like androgen containing or idiopathic . lab workup done on 11/07/2016, showed BCR ABL negative LAP score 109 normal being 25 to 130 peripheral blood smear no abnormality seen started on hydroxyurea 500 mg by mouth daily on 05/30/2019 while continue with phlebotomies as needed chronic and heavy smoking smoke 1-2 pack a day for 40 years family history of polycythemia vera 3. Thrombocytosis probably reactive but myeloproliferative disorder cannot be ruled out 4. .Right leg pain/peripheral vascular disease involving the right leg Plain x-ray of the femur, tibia and fibula done on 11/08/2016 showed normal findings no abnormality seen 5. .Hepatitis C on 12 week course of Zepatier,elbavin plus grazoprevin 7. Presumably tick bite status post 2 weeks course of antibiotics with doxycycline 8. Chronic smoker 1-2 pack per day for 40 years 9. COPD 10. .Gallstones CT PET scan done on March 27, 2021 showed 1.2 x 1.7 cm lingular mass with SUV of 7.9, no evidence of distant mets, now being referred to cardiothoracic surgery. Plan: Discussed with patient regarding his labs white blood count 9.3 hemoglobin 13.8 hematocrit 46.4 compared to 49.4 previously platelets 410,000 compared to 634,000 previously Clinically, patient doing well with no new signs symptoms, tolerating hydroxyurea 500 mg p.o. daily well, patient is off aspirin, as he is waiting for left lung surgery for solitary FDG positive lesion seen on recent CT PET scan. As per patient he underwent PFTs and now surgical resection of lingular mass via thoracotomy versus VATS is under consideration,, patient was referred to [facility] by pulmonology, he is awaiting consultation. As far as, polycythemia is a concern, patient on hydroxyurea 500 mg p.o. daily, he was advised to continue daily aspirin until left lung surgery is planned. In the meantime we will proceed with phlebotomy with 500 cc and 250 cc normal saline replacement, to keep his hematocrit less than 45. Return to clinic in 1 month with CBC Case was discussed with Dr. Cid, again, he said patient is scheduled to see thoracic surgical oncology at [facility] on coming . Signed By: Niya Sears M.D. <<Signature on File>>
== END 2021-06-03 07:48 | disposition home or self-care (01) ==
LOC: ONCMED 07:51
PROVIDERS: PCP Nurse Practitioner Family; Visit Provider Internal Medicine Hematology & Oncology
DX: D45 Polycythemia vera (principal); J44.9 Chronic obstructive pulmonary disease, unspecified; F17.210 Nicotine dependence, cigarettes, uncomplicated; D47.3 Essential (hemorrhagic) thrombocythemia; R91.1 Solitary pulmonary nodule; Z79.899 Other long term (current) drug therapy
CPT/HCPCS: 36415; 85025; 99195; 99215; J7050

== ENCOUNTER → 2021-06-21 09:59 | Outpatient (BNVA) | payer MEDICARE, MEDICAID, SELFPAY | PROVIDERS: PCP Nurse Practitioner Family; Visit Provider Nurse Practitioner Adult Health | DX: Z01.811 Encounter for preprocedural respiratory examination (principal); Z01.812 Encounter for preprocedural laboratory examination; Z20.822 Contact with and (suspected) exposure to COVID-19 | CPT/HCPCS: 87635 ==

== ENCOUNTER 2021-07-05 08:44 | Outpatient (CLI) | payer MEDICARE, MEDICAID, SELFPAY ==
[2021-07-05 09:23] LABS: Basophils # 0.1 10^3/uL (0.0-0.1); Eosinophils # 0.3 10^3/uL (0.0-0.8); Eosinophils % 3.5 %; Hematocrit 41.8 % (42.0-52.0); Hemoglobin 12.6 g/dL (11.7-16.6); Lymphocytes # 1.5 10^3/uL (0.8-4.8); Lymphocytes % 18.2 %; Mean Corpuscular HGB Conc 30.1 g/dL (30.0-36.0); Mean Corpuscular Hemoglobin 22.7 pg (28.0-34.0); Mean Corpuscular Volume 75.5 fl (80-94); Monocytes # 0.5 10^3/uL (0.2-0.9); Monocytes % 5.5 %; Neutrophils % 71.2 %; Nucleated Red Blood Cells % 0 %; Platelet Count 152 10^3/cmm (130-400); Red Blood Count 5.54 10^6/uL (4.1-5.3); Red Cell Distribution Width 24.1 % (12.1-15.1); White Blood Count 8.3 10^3/uL (4.0-10.0)
--- NOTE | 2021-07-05 16:07 | ONC FU_ITS ---
Dr. Sears follow up note Patient: Fransisco Denis Unit #: [id number]: 1955 Dicatated By: Niya Sears M.D.Date of Visit:Jul 05, 2021 Onc Med Follow-up/Prog Note History of Present Illness: Mr. Denis is a 66-year-old gentleman with history of leukocytosis for 12 years. He presented with an elevated platelet count as well as hematocrit. CBC on 10/14/2016 showed white blood count 14.1 hemoglobin 17.3 hematocrit 50.9 platelet count 516,000 with elevated neutrophil count at 10.4 normal range being 1.4-6.5. Mr Denis reported that any time he would go to emergency room for his other medical problems, doctors always make comment regarding the high white blood count and prescribe antibiotics . He got more concerned when he was told about his elevated hematocrit and platelets. Mr Denis reported that his brother has polycythemia and is on chemotherapy pills. He denies any weight loss, he denies any fever chills, he denies any night sweats or peripheral lymphadenopathy. he denies any chronic sinus problem but has smoker's cough has been smoking 1 pack per day for last 40 years. he denies any hemoptysis or hematemesis. he denies any abdominal fullness. He was treated for a tick bite with doxycycline- which he finished a 2 week course. s/p 12 week course of Zepatier and elbavarin plus grazoprevin for hepatitis C. Interim history: Mr Denis was lost follow-up when he moved to [place] to take care of his elderly brother. He established his care there in hematology clinic where he was diagnosed with polycythemia vera and treated with phlebotomies on a regular basis. As per patient, his hematocrit at that time had gone up to 60. He reported that he was getting phlebotomies every 3-4 months. During his last visit to our clinic in October 2016, JAK2 mutation was ordered and at that time resulted came back positive for mutation which did confirm polycythemia vera. Quit smoking in April 2019. He was sarted on hydroxyurea 500 mg daily on 05/30/2019 and continued with phlebotomies to keep hematocrit equal to or less than 45. Hydroxyurea increased to 1000 mg on Monday, Monday and Monday and continue with the 500 mg daily on remaining days per week from 500 mg p.o. daily on September 30, 2019. Mr Denis cut down his hydroxyurea dose to 500 mg daily (instead of alternating with 1000mg every other day) around October, because of intolerance e.g. generalized weakness and fatigue. He reports since then he has remained on the 500 mg daily and tolerating this well. He underwent CT scan of chest which showed questionable lung nodules, too small to biopsy, Dr. Elmore is following his questionable lung nodules. Patient underwent follow-up CT scan of chest on 01/03/2020 which showed multiple small noncalcified pulmonary nodules are stable compared to July 08, 2019, largest in the left upper lobe measuring 9 mm. Recommended six-month follow-up. No mediastinal or hilar lymphadenopathy. Stable splenomegaly. Left lower lobe pneumonitis has resolved. CT scan of the chest done on February 24, 2021 showed progressed left upper lobe nodule today measures 1.6 x 1.1 cm with surrounding spiculation, suspicious appearance Smaller subpleural right upper lobe nodule is slightly larger today measuring 7 mm compared to 5 mm previously. No mediastinal or hilar lymphadenopathy. Prominent gallstone in gallbladder unchanged. Remainder of tiny subcentimeter nodules in the lungs are stable. CT PET scan done on March 27, 2021 showed FDG positive lingular measuring 1.2 x 1.7 cm with SUV of 7.9, bilateral COPD changes. Likely inflammatory uptake in left hilar nodes Came for follow-up, complaining of severe pain in left chest wall, patient recently underwent da Jacinda assisted left lobectomy or wedge resection about 2 weeks ago, patient said the drainage tube was removed last week, as per patient his left chest wall pain was controlled with pain medication but then he ran out of it now is hurting really bad 8-9 on the scale of 1-10, denies any fever or chills denies any hemoptysis or hematemesis, patient still has stitches in the left chest. No discharge from the wound. As per patient, his surgeon informed him that it was a very common type cancer and very early stage and he would not need any chemo or radiation therapy but follow-up scans every 3 months as patient also had an indeterminate lesion in the right lung. Patient said he quit smoking week prior to the surgery and has no plan to restart it. Medications: EQ Ibuprofen 4 Tablet (of 200 mg) Oral b.i.d., Hydroxyurea 1 Tablet (of 500 mg) Oral daily Allergies: No Known Allergies. Review of Systems: Review of Systems is not available for this patient. Vital Signs: Performed on Jul 05, 2021 11:51 Height - 68.00 in BP - 127/85 mm(hg) Performed on Jul 05, 2021 11:51 Height - 68.00 in Weight - 178.8 lbs (LOW) BSA - 1.95 sq.m BMI - 27.19 Temperature - 97.8 F (LOW) Pulse - 85 /min Respiration - 20 /min BP - 151/92 mm(hg) (HIGH) O2 Sat - 98 % Pain - 8 Fatigue - 8 Performance Status: 1 - No physically strenuous activity, but ambulatory and able to carry out light or sedentary work (e.g. office work, light house work). (ECOG) Physical Examination: ENMT - No mouth sores, no thrush, no jaundice, Respiratory - Poor air entry otherwise clear, surgical wound in the left chest shows no discharge but stitches at thoracoscopy sites in the left chest wall, Cardiovascular - Regular rate and rhythm of heart, Abdomen - Soft, bowel sounds present, Extremities - No visible edema. Lab/Imaging: Test performed on Feb 24, 2021 11:54 Sodium 136 mmol/L Potassium 4.0 mmol/L Chloride 101 mmol/L CO2 24 mmol/L Anion Gap 15.0 BUN 13 mg/dL Creatinine 0.7 mg/dL Cr Clearance (Est) 119.0200 mL/min eGFR 113.5 mL/min Glucose 125 mg/dL Osmolality - Calculated 284 mOsm/kg Calcium 8.7 mg/dL Protein, Total 6.6 g/dL Albumin 4.1 g/dL Globulin 2.5 g/dL Bilirubin, Total 0.3 mg/dL ALT (SGPT) 11 U/L AST (SGOT) 17 U/L Alkaline Phosphatase 83 IU/L WBC 8.8 10 3/uL RBC 5.29 10 6/uL HGB 12.8 g/dL HCT 41.6 % MCV 78.6 fl MCH 24.2 pg MCHC 30.8 g/dL RDW 19.1 % Platelet Count 168 10 3/cmm MPV 9.6 fL Neutrophils 5.57 10 3/uL Lymphocytes 1.8 10 3/uL Monocytes 0.5 10 3/uL Eosinophils 0.7 10 3/uL Basophils 0.1 10 3/uL Neutrophil % 63.3 % Lymphocyte % 20.6 % Monocyte % 6.1 % Eosinophil % 8.3 % Basophils % 1.4 % NRBC % 0 % Test performed on Jan 14, 2021 08:41 NRBC 0.0 /100 WBC Impression: 1. Polycythemia vera JAk2 positive, confirmed in October 2016 at that time patient moved down to [place], and established care in hematology clinic there, where he was treated with phlebotomies every 3-4 month, and as per patient, the last one was done in October 2018, now has moved back to [place]. Leukocytosis with left shift, probably due to infections like hepatitis C or chronic inflammation like peripheral vascular disease involving the right leg or chronic bronchitis/ COPD due to smoking or gavz-sja-wdvscma medication like androgen containing or idiopathic . lab workup done on 11/07/2016, showed BCR ABL negative LAP score 109 normal being 25 to 130 peripheral blood smear no abnormality seen started on hydroxyurea 500 mg by mouth daily on 05/30/2019 while continue with phlebotomies as needed chronic and heavy smoking smoke 1-2 pack a day for 40 years family history of polycythemia vera 3. Thrombocytosis probably reactive but myeloproliferative disorder cannot be ruled out 4. .Right leg pain/peripheral vascular disease involving the right leg Plain x-ray of the femur, tibia and fibula done on 11/08/2016 showed normal findings no abnormality seen 5. .Hepatitis C on 12 week course of Zepatier,elbavin plus grazoprevin 7. Presumably tick bite status post 2 weeks course of antibiotics with doxycycline 8. Chronic smoker 1-2 pack per day for 40 years 9. COPD 10. .Gallstones CT PET scan done on March 27, 2021 showed 1.2 x 1.7 cm lingular mass with SUV of 7.9, no evidence of distant mets, Status post da Jacinda assisted resection Plan: Discussed with patient regarding his labs white blood count 8.3 hemoglobin 12.6 hematocrit 41.8 compared to 46.4 previously in May 2021 platelets 152,000 Clinically, patient is doing reasonably well, now on moderate to severe distress due to left chest wall pain due to recent surgery for lung cancer at [facility] as per patient chest tube was removed last week, patient is requesting stronger pain medicine for better pain control, as per patient oxycodone 5 mg every 4-6 hour was given in the hospital that was helping him., Will give him prescription for oxycodone 5 mg 1 to 2 tablet every 6-8 hours as needed. Patient was advised to follow with his surgeon. We will also obtain pathology report from [facility] and review it. As far as polycythemia is concerned, his hemoglobin/hematocrit is in desirable range. We will continue to monitor, patient was congratulated for quitting smoking and was encouraged not to start it and was offered any assistance he may need He will return to clinic in 1 month with CBC Signed By: Niya Sears M.D. <<Signature on File>>
== END 2021-07-05 08:45 | disposition home or self-care (01) ==
PROVIDERS: PCP Nurse Practitioner Family; Visit Provider Internal Medicine Hematology & Oncology
DX: D45 Polycythemia vera (principal); D72.829 Elevated white blood cell count, unspecified; D75.839 Thrombocytosis, unspecified; I73.9 Peripheral vascular disease, unspecified; J44.9 Chronic obstructive pulmonary disease, unspecified; F17.210 Nicotine dependence, cigarettes, uncomplicated; Z79.899 Other long term (current) drug therapy
CPT/HCPCS: 36415; 85025; 99214

== ENCOUNTER 2021-08-19 12:50 | Outpatient (CLI) | payer MEDICARE, MEDICAID, SELFPAY ==
[2021-08-19 13:22] LABS: Basophils # 0.1 10^3/uL (0.0-0.1); Eosinophils # 0.4 10^3/uL (0.0-0.8); Eosinophils % 3.8 %; Hematocrit 40.1 % (42.0-52.0); Lymphocytes # 2.2 10^3/uL (0.8-4.8); Lymphocytes % 22.5 %; Mean Corpuscular HGB Conc 29.9 g/dL (30.0-36.0); Mean Corpuscular Volume 80.4 fl (80-94); Mean Platelet Volume 10.4 fL (7.4-10.4); Monocytes # 0.7 10^3/uL (0.2-0.9); Monocytes % 7.1 %; Neutrophils % 65.3 %; Nucleated Red Blood Cells % 0 %; Platelet Count 627 10^3/cmm (130-400); Red Blood Count 4.99 10^6/uL (4.1-5.3)
--- NOTE | 2021-08-19 15:56 | ONC FU_ITS ---
Dr. Sears follow up note Patient: Fransisco Denis Unit #: [id number]: 1955 Dicatated By: Niya Sears M.D.Date of Visit:Aug 19, 2021 Onc Med Follow-up/Prog Note History of Present Illness: Mr. Denis is a 66-year-old gentleman with history of leukocytosis for 12 years. He presented with an elevated platelet count as well as hematocrit. CBC on 10/14/2016 showed white blood count 14.1 hemoglobin 17.3 hematocrit 50.9 platelet count 516,000 with elevated neutrophil count at 10.4 normal range being 1.4-6.5. Mr Denis reported that any time he would go to emergency room for his other medical problems, doctors always make comment regarding the high white blood count and prescribe antibiotics . He got more concerned when he was told about his elevated hematocrit and platelets. Mr Denis reported that his brother has polycythemia and is on chemotherapy pills. He denies any weight loss, he denies any fever chills, he denies any night sweats or peripheral lymphadenopathy. he denies any chronic sinus problem but has smoker's cough has been smoking 1 pack per day for last 40 years. he denies any hemoptysis or hematemesis. he denies any abdominal fullness. He was treated for a tick bite with doxycycline- which he finished a 2 week course. s/p 12 week course of Zepatier and elbavarin plus grazoprevin for hepatitis C. Interim history: Mr Denis was lost follow-up when he moved to [place] to take care of his elderly brother. He established his care there in hematology clinic where he was diagnosed with polycythemia vera and treated with phlebotomies on a regular basis. As per patient, his hematocrit at that time had gone up to 60. He reported that he was getting phlebotomies every 3-4 months. During his last visit to our clinic in October 2016, JAK2 mutation was ordered and at that time resulted came back positive for mutation which did confirm polycythemia vera. Quit smoking in April 2019. He was sarted on hydroxyurea 500 mg daily on 05/30/2019 and continued with phlebotomies to keep hematocrit equal to or less than 45. Hydroxyurea increased to 1000 mg on Monday, Monday and Monday and continue with the 500 mg daily on remaining days per week from 500 mg p.o. daily on September 30, 2019. Mr Denis cut down his hydroxyurea dose to 500 mg daily (instead of alternating with 1000mg every other day) around October, because of intolerance e.g. generalized weakness and fatigue. He reports since then he has remained on the 500 mg daily and tolerating this well.Patient stopped taking hydroxyurea just prior to his left upper lobe lobectomy which was done in probably May 2021 and continue to hold as his hemoglobin/hematocrit remained in desirable range without medication moreover he did quit smoking as a preparation for surgery and never smoked thereafter. He underwent CT scan of chest which showed questionable lung nodules, too small to biopsy, Dr. Elmore is following his questionable lung nodules. Patient underwent follow-up CT scan of chest on 01/03/2020 which showed multiple small noncalcified pulmonary nodules are stable compared to July 08, 2019, largest in the left upper lobe measuring 9 mm. Recommended six-month follow-up. No mediastinal or hilar lymphadenopathy. Stable splenomegaly. Left lower lobe pneumonitis has resolved. CT scan of the chest done on February 24, 2021 showed progressed left upper lobe nodule today measures 1.6 x 1.1 cm with surrounding spiculation, suspicious appearance Smaller subpleural right upper lobe nodule is slightly larger today measuring 7 mm compared to 5 mm previously. No mediastinal or hilar lymphadenopathy. Prominent gallstone in gallbladder unchanged. Remainder of tiny subcentimeter nodules in the lungs are stable. CT PET scan done on March 27, 2021 showed FDG positive lingular measuring 1.2 x 1.7 cm with SUV of 7.9, bilateral COPD changes. Likely inflammatory uptake in left hilar nodes underwent da Jacinda assisted left lobectomy or wedge resection As per patient, his surgeon informed him that it was a very common type cancer and very early stage and he would not need any chemo or radiation therapy but follow-up scans every 3 months as patient also had an indeterminate lesion in the right lung. Patient said he quit smoking week prior to the surgery and has no plan to restart it. Came for follow-up, as per patient on July 27, 2021 he was admitted to hospital in [place] with left-sided pneumonia and sepsis and transient atrial fibrillation he was treated with broad-spectrum antibiotics and his overall condition improved. Today, denies any specific complaints, no fever or chills, no nausea or vomiting, no diarrhea constipation no shortness of breath or palpitation. Patient still off hydroxyurea since his left upper lobe lobectomy for early stage lung cancer and as his hemoglobin/hematocrit has been staying in desirable range. Moreover patient quit smoking and since his last visit, patient said he had a couple of relapse but now he is serious and not smoking anymore. Medications: Aspirin 81 1 Tablet Tablet, chewable Oral daily, EQ Ibuprofen 4 Tablet (of 200 mg) Oral b.i.d. Allergies: No Known Allergies. Review of Systems: Review of Systems is not available for this patient. Vital Signs: Performed on Aug 19, 2021 14:50 Height - 68.00 in Weight - 171.0 lbs (LOW) BSA - 1.91 sq.m BMI - 26.00 Temperature - 98.5 F Pulse - 95 /min Respiration - 18 /min BP - 133/81 mm(hg) O2 Sat - 97 % Pain - 3 Fatigue - 7 Performance Status: 0 - Fully active, able to carry on all predisease activities without restrictions. (ECOG) Physical Examination: ENMT - No mouth sores, no thrush, no jaundice no cervical lymphadenopathy, Respiratory - Poor air entry otherwise clear, Cardiovascular - Regular rate and rhythm of heart , Abdomen - Soft, bowel sounds present, Extremities - No visible edema. Lab/Imaging: Test performed on Feb 24, 2021 11:54 Sodium 136 mmol/L Potassium 4.0 mmol/L Chloride 101 mmol/L CO2 24 mmol/L Anion Gap 15.0 BUN 13 mg/dL Creatinine 0.7 mg/dL Cr Clearance (Est) 119.0200 mL/min eGFR 113.5 mL/min Glucose 125 mg/dL Osmolality - Calculated 284 mOsm/kg Calcium 8.7 mg/dL Protein, Total 6.6 g/dL Albumin 4.1 g/dL Globulin 2.5 g/dL Bilirubin, Total 0.3 mg/dL ALT (SGPT) 11 U/L AST (SGOT) 17 U/L Alkaline Phosphatase 83 IU/L WBC 8.8 10 3/uL RBC 5.29 10 6/uL HGB 12.8 g/dL HCT 41.6 % MCV 78.6 fl MCH 24.2 pg MCHC 30.8 g/dL RDW 19.1 % Platelet Count 168 10 3/cmm MPV 9.6 fL Neutrophils 5.57 10 3/uL Lymphocytes 1.8 10 3/uL Monocytes 0.5 10 3/uL Eosinophils 0.7 10 3/uL Basophils 0.1 10 3/uL Neutrophil % 63.3 % Lymphocyte % 20.6 % Monocyte % 6.1 % Eosinophil % 8.3 % Basophils % 1.4 % NRBC % 0 % Impression: 1. Polycythemia vera JAk2 positive, confirmed in October 2016 at that time patient moved down to [place], and established care in hematology clinic there, where he was treated with phlebotomies every 3-4 month, and as per patient, the last one was done in October 2018, now has moved back to [place]. Leukocytosis with left shift, probably due to infections like hepatitis C or chronic inflammation like peripheral vascular disease involving the right leg or chronic bronchitis/ COPD due to smoking or jtqw-xcj-gyabpkj medication like androgen containing or idiopathic . lab workup done on 11/07/2016, showed BCR ABL negative LAP score 109 normal being 25 to 130 peripheral blood smear no abnormality seen started on hydroxyurea 500 mg by mouth daily on 05/30/2019 while continue with phlebotomies as needed chronic and heavy smoking smoke 1-2 pack a day for 40 years family history of polycythemia vera 3. Thrombocytosis probably reactive but myeloproliferative disorder cannot be ruled out 4. .Right leg pain/peripheral vascular disease involving the right leg Plain x-ray of the femur, tibia and fibula done on 11/08/2016 showed normal findings no abnormality seen 5. .Hepatitis C on 12 week course of Zepatier,elbavin plus grazoprevin 7. Presumably tick bite status post 2 weeks course of antibiotics with doxycycline 8. Chronic smoker 1-2 pack per day for 40 years 9. COPD 10. .Gallstones CT PET scan done on March 27, 2021 showed 1.2 x 1.7 cm lingular mass with SUV of 7.9, no evidence of distant mets, Status post da Jacinda assisted resection Plan: Discussed with patient regarding his labs white blood count 10 hemoglobin 12 hematocrit 40.1 platelets 627,000 compared to 152 on July 05, 2021 Clinically, patient doing well with no new signs symptoms. As far as polycythemia is concerned, his follow-up CBC shows hemoglobin/hematocrit in desirable range. But mild thrombocytosis probably reactive. Patient is off hydroxyurea since underwent left upper lobe lobectomy for early stage lung cancer and has not started Hydrea because of concern but interfering with healing and wants to recover from surgery before restarting hydroxyurea. Patient also quit smoking, that is also helping his polycythemia. And patient wants to stay off hydroxyurea as long as he can and promised he would not smoke. 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 And will be back in 2 months with CBC. Patient was advised not to start smoking and consider checking CBC in a month otherwise return to clinic in 2 months with CBC. At patient's request, we will continue to hold his hydroxyurea as long as his hemoglobin/hematocrit is in desirable range e.g. less than 45 Mild thrombocytosis, could be reactive, will monitor Signed By: Niya Sears M.D. <<Signature on File>>
== END 2021-08-19 12:51 | disposition home or self-care (01) ==
PROVIDERS: PCP Nurse Practitioner Family; Visit Provider Internal Medicine Hematology & Oncology
DX: D72.829 Elevated white blood cell count, unspecified (principal); D75.839 Thrombocytosis, unspecified; J44.9 Chronic obstructive pulmonary disease, unspecified; I73.9 Peripheral vascular disease, unspecified; B19.20 Unspecified viral hepatitis C without hepatic coma; R91.8 Other nonspecific abnormal finding of lung field; F17.210 Nicotine dependence, cigarettes, uncomplicated
CPT/HCPCS: 36415; 85025; 99214

== ENCOUNTER → 2021-10-27 08:05 | Outpatient (BNVA) | payer MEDICARE, MEDICAID, SELFPAY | PROVIDERS: PCP Nurse Practitioner Family; Visit Provider Internal Medicine Hematology & Oncology | DX: D45 Polycythemia vera (principal); Z90.2 Acquired absence of lung [part of] | CPT/HCPCS: 80053; 85025 ==

== ENCOUNTER 2021-10-29 07:56 | Oncology outpatient (recurring) (ONCR) | payer MEDICARE, MEDICAID, SELFPAY ==
--- NOTE | 2021-10-29 09:32 | PC.NURSE ---
IV access attempted x 4 attempts. pt refused any more attempts today. pt rescheduled for monday for phlebotomy.
== END 2021-10-29 23:59 | disposition home or self-care (01) ==
PROVIDERS: PCP Nurse Practitioner Family; Visit Provider Internal Medicine Hematology & Oncology
DX: D45 Polycythemia vera (principal); J43.2 Centrilobular emphysema; F17.210 Nicotine dependence, cigarettes, uncomplicated; R91.1 Solitary pulmonary nodule
CPT/HCPCS: 36415; 99214

== ENCOUNTER 2021-11-17 08:30 | Oncology outpatient (recurring) (ONCR) | payer MEDICARE, MEDICAID, SELFPAY ==
[2021-11-01 10:42] VITALS: BP 136/84; PULSE 77; RESP 20; TEMP 36.5; O2SAT 97
== END 2021-11-21 23:59 | disposition home or self-care (01) ==
PROVIDERS: PCP Nurse Practitioner Family; Visit Provider Internal Medicine Hematology & Oncology
DX: D45 Polycythemia vera (principal); J43.2 Centrilobular emphysema
CPT/HCPCS: 85025; 99214

== ENCOUNTER → 2021-11-22 10:11 | Outpatient (BNVA) | payer MEDICARE, MEDICAID, SELFPAY | PROVIDERS: PCP Nurse Practitioner Family; Visit Provider Surgery | DX: L98.9 Disorder of the skin and subcutaneous tissue, unspecified (principal); D45 Polycythemia vera | CPT/HCPCS: 99204 ==

== ENCOUNTER 2021-11-25 06:24 | Day surgery (SDC) | payer MEDICARE, MEDICAID, SELFPAY ==
--- NOTE | 2021-11-25 | SCC_ITS ---
Procedure done: 1. Excision of suspicious skin lesion left side of neck 2. Placement of PowerPort in the right subclavian vein 3. Fluoroscopic guidance and interpretation for placement of catheter 26.5 seconds of fluoroscopic guidance, for a cumulative dose of 4.55 mGy, was provided to Dr. Johnson by the radiology department. C-arm images of the chest were saved for the patient's permanent record. [facility]
[2021-11-25 06:46] VITALS: BP 149/86; PULSE 66; RESP 18; TEMP 36.6; O2SAT 98
--- NOTE | 2021-11-25 06:52 | P.HP_ITS ---
Same Day Surgery H&P Indication for Procedure/HPI DATE OF PROCEDURE: November 25, 2021 CHIEF COMPLAINT/INDICATIONFOR SURGICAL PROCEDURE: port placement PREOP DIAGNOSIS: Polycythemia, suspicious skin lesion PLANNED PROCEDURE: Operation Date: 11/25/21 08:10 Proposed Procedures p Portacath Placement 42013,Excision of suspicious skin lesion left side 1140 0,D45,L98.9(Not Applicable) - Zana Johnson MD s Excision Mass/Lesion/Cyst Face(Left) - Zana Johnson MD Medications/Allergies* Home Medications Medication Instructions Recorded Confirmed Type ibuprofen 800 mg tablet 800 mg PO Q6H PRN Pain 07/08/19 11/24/21 History aspirin 81 mg tablet,delayed 162 mg PO DAILY 10/16/19 11/25/21 History release (Adult Aspirin Regimen) hydroxyurea 500 mg capsule 500 mg PO DAILY 11/01/21 11/25/21 History Allergies/Adverse Reactions Allergy/AdvReac Type Severity Reaction Status Date / Time No Known Allergies Allergy Verified 11/22/21 10:13 Pertinent History/Comorbid Conditions* Medical History (Updated 11/22/21 @ 10:50 by Zana Johnson MD) History of basal cell carcinoma (BCC) Hyperlipidemia Polycythemia Skin lesion Surgical History (Updated 11/22/21 @ 10:50 by Zana Johnson MD) History of colonoscopy History of hemiarthroplasty of shoulder History of lobectomy of lung History of local excision of skin lesion 2X Status post appendectomy Family History (Updated 06/06/19 @ 10:21 by Chastity Quintero RN) Denies family history of Anesthesia complication Bleeding disorder Social History Smoking and tobacco status: current some day smoker cigarettes Packs smoked per day: 2 Years cigarettes smoked: 50 [ Other cigarette details: down to 2-3 cig per day] Quit status (tobacco): considering quitting Second hand smoke exposure: No Alcohol intake: current Alcohol intake frequency: holidays/special occasions only Alcohol type: beer Adopted: No Caregiver/support person: Yes Lives independently: Yes Household members: none Housing: House Marital status: Legally service: Yes branch: [employer] Current occupational status: disabled Current occupational exposures/hazards: No Pets and animals: No History of recent travel: No Sexually active: No Current gender identity: Male Adrianne/Yarsanism: Congregational Special adrianne needs: No Agree to transfusion: No Financial difficulty paying for basics: Decline to Answer Pertinent Exam Findings alert, oriented x 3 and regular rate & rhythm Recommendations Surgery/Procedure today Coding Level of Care Code Acute Proposal Rep for Jose Eduardo Rucker
[2021-11-25] MEDS: sodium chloride 0.9% 1,000 ML 30 ML IV (07:08)
--- NOTE | 2021-11-25 07:09 | P.ANESASSM_ITS ---
Pre-Anesthetic Assessment Height/Weight: Height 1.75 m Weight 77.111 kg Temp Pulse Resp BP Pulse Ox O2 Del Method 97.9 F 66 18 149/86 98 11/25/21 06:46 11/25/21 06:46 11/25/21 06:46 11/25/21 06:46 11/25/21 06:46 11/25/21 06:51 Preop Diagnosis: Polycythemia, suspicious skin lesion Operation Date: 11/25/21 08:10 Proposed Procedures p Portacath Placement 16226,Excision of suspicious skin lesion left side 25321,D45,L98.9(Not Applicable) - Zana Johnson MD s Excision Mass/Lesion/Cyst Face(Left) - Zana Johnson MD Familial anesthetic complications: None Was Beta Mary taken within 24 hours: N/A Was Clonidine taken within 24 hours: N/A Last intake: Intake Last Liquid Date 11/24/21 Last Liquid Time 18:30 Last Solid Date 11/24/21 Last Solid Time 18:00 Social Tobacco and No alcohol Exam alert, oriented x 3 and regular rate & rhythm Airway Submandibular: within normal limits Cervical ROM: within normal limits Mallampati: Class II Dentition: false (upper) Pulmonary Chronic Obstructive Pulmonary Disease CV/HEM PCV Neuropsych Neuropathy Anesthetic Plan ASA status: 3 Anesthesia: MAC Medications/Allergies Home Medications Medication Instructions Recorded Confirmed Last Taken Type ibuprofen 800 mg tablet 800 mg PO Q6H PRN Pain 07/08/19 11/24/21 07/07/19 History aspirin 81 mg tablet,delayed 162 mg PO DAILY 10/16/19 11/25/21 11/23/21 History release (Adult Aspirin Regimen) gabapentin 100 mg capsule 100 mg PO TID #90 caps 11/01/21 11/24/21 Unknown Rx hydroxyurea 500 mg capsule 500 mg PO DAILY 11/01/21 11/25/21 11/23/21 History tiotropium 2.5 mcg-olodaterol 2.5 2 puff inhalation DAILY #4 grams 11/01/21 11/25/21 11/24/21 Rx mcg/actuation mist for inhalation (Stiolto Respimat) hydrocodone 5 mg-acetaminophen 325 1 tab PO Q6H PRN pain #20 tabs 11/25/21 Unknown Rx mg tablet Allergies Allergy/AdvReac Type Severity Reaction Status Date / Time No Known Allergies Allergy Verified 11/22/21 10:13 Current Medications Generic Name Dose Route Start Last Admin Trade Name Marioq PRN Reason Stop Dose Admin Sodium Chloride 1,000 mls @ 30 mls/hr 11/25/21 06:45 11/25/21 07:08 Sodium Chloride 0.9% IV 11/26/21 06:44 30 mls/hr .Q24H MARIA INES Administration PFSH Anesthesia Medical History (Updated 11/25/21 @ 07:03 by Zana Johnson MD) History of basal cell carcinoma (BCC) Hyperlipidemia Polycythemia Skin lesion Surgical History (Updated 11/25/21 @ 07:04 by Zana Johnson MD) H/O local excision of skin lesion (11/25/21) left side of neck History of colonoscopy History of hemiarthroplasty of shoulder History of lobectomy of lung History of local excision of skin lesion 2X Port-A-Cath in place (11/25/21) Status post appendectomy Family History Denies family history of Anesthesia complication Bleeding disorder Social History Smoking and tobacco status: current some day smoker cigarettes Packs smoked per day: 2 Years cigarettes smoked: 50 [ Other cigarette details: down to 2-3 cig per day] Quit status (tobacco): considering quitting Second hand smoke exposure: No Alcohol intake: current Alcohol intake frequency: holidays/special occasions only Alcohol type: beer Adopted: No Caregiver/support person: Yes Lives independently: Yes Household members: none Housing: House Marital status: Legally service: Yes branch: [employer] Current occupational status: disabled Current occupational exposures/hazards: No Pets and animals: No History of recent travel: No Sexually active: No Current gender identity: Male Adrianne/Anabaptism: Jehovah'S Witness Special adrianne needs: No Agree to transfusion: No Financial difficulty paying for basics: Decline to Answer Data Anesthesia Cardiac Studies: No Data to Display
--- NOTE | 2021-11-25 07:30 | SC_ITS ---
WS: [id number] C-arm fluoroscopy for Port-A-Cath insertion, 11/25/2021 Clinical Data: intra-op Comparison: None. Findings: The right Port-A-Cath has been inserted by Dr. Johnson. SC/C-arm FL for CVA [id number] Impression: Right Port-A-Cath insertion.
[2021-11-25] MEDS: ceFAZolin 2,000 MG in sodium chloride 0.9% (plus) 50 ML 100 MG IV (08:20)
[2021-11-25] MEDS: lidocaine 2% INJ 20 mL INJECTION (08:40)
[2021-11-25] MEDS: heparin, porcine 1,000 unit/mL INJ 10 mL 6000 UNIT XX (08:55)
[2021-11-25] MEDS: sodium chloride 0.9% 100 mL Bag XX (08:58)
--- NOTE | 2021-11-25 09:08 | PM.OP ---
Operative Report Date of procedure: November 25, 2021 Pre-op diagnosis: 1. Suspicious skin lesion left side of neck 2. Polycythemia Post-op diagnosis: 1. Suspicious skin lesion left side of neck measuring 1.5 x 1.5 cm 2. Polycythemia Procedure done: 1. Excision of suspicious skin lesion left side of neck 2. Placement of PowerPort in the right subclavian vein 3. Fluoroscopic guidance and interpretation for placement of catheter Specimens removed/disposition: Suspicious skin lesion left side of neck Surgeon: Zana Johnson Anesthesia: General Condition: stable Disposition: PACU Procedure: The patient was taken to the Operating Room and the chest and neck bilaterally were prepped and draped in a sterile manner after the antibiotic had been administered and shoulder rolls had been placed. 1% lidocaine with 0.25% Marcaine was infiltrated under the clavicle on the right side at the site of the planned entry into the subclavian vein. An introducer needle was then used to access the subclavian vein under the clavicle and after withdrawing blood syringe was removed and a guidewire passed under fluoroscopy into the superior vena cava. The site of the planned port was then marked on the chest and a 15 blade was used to make a 3 cm skin incision this was extended into the subcutaneous tissue using electrocautery and a subcutaneous pocket over the pectoralis fascia was created 2-0 Vicryl suture was used to suture the port to the pectoral fascia in the pocket on 3 sides. The catheter, after having been flushed with hep saline, was attached to the tunneler and a tunnel created between the port site and the subclavian vein entry site. Under fluoroscopy the dilator sheath was passed over the guidewire into the proximal superior vena cava. The inner dilator was removed and the sheath left behind and~ the catheter was introduced through the peel-away sheath with the tip in the superior vena cava. The peel-away sheath was removed. The proximal end of the catheter was cut to the right size and was attached to the port. Using a Ross needle the port was accessed, it withdrew blood easily and flushed easily. A final 5cc of heparin was used to flush the PowerPort. The subcutaneous tissue was approximated using interrupted 3-0 Vicryl sutures and the skin at the introducer site and the port site was closed using subcuticular running 4-0 Monocryl sutures. Surgical glue was applied and the patient was stable throughout the procedure. Fluoroscopic guidance and interpretation was performed for introduction of the guidewire in the right subclavian vein, passage of dilator and placement of catheter tip in the distal superior vena cava. Using a 15 blade an elliptical 2 cm incision was made around the suspicious skin lesion on the left side of the neck measuring 1.5 x 1 cm and electrocautery was used to divide from the surrounding subcutaneous tissue. The specimen was sent in formalin to pathology. The subcutaneous tissue was approximated using interrupted 3-0 Vicryl suture and skin was closed using running subcuticular 4-0 Monocryl suture and Dermabond. The patient was transferred to recovery room in stable condition
[2021-11-25 09:14] VITALS: BP 95/70; PULSE 77; RESP 16; TEMP 36.3; O2SAT 96
[2021-11-25 09:20] VITALS: BP 114/82; PULSE 75; RESP 16; TEMP 36.2; O2SAT 94
[2021-11-25 09:25] VITALS: BP 118/76; PULSE 71; RESP 16; TEMP 36.2; O2SAT 93
--- NOTE | 2021-11-25 13:47 | ANE.PACU2 ---
Inpatient post-anesthesia follow up: Airway intact: Yes Vital signs: Temperature 97.2 F Pulse Rate 71 Respiratory Rate 16 Blood Pressure 118/76 Pulse Oximetry 93 Oxygen Delivery Me thod Room Air Oxygen Flow Rate Fraction of Inspir ed Oxygen Hydration adequate: Yes Nausea and vomiting: No Pain level: 2 Mental status: Baseline
== END 2021-11-25 09:55 | disposition home or self-care (01) ==
PROVIDERS: PCP Nurse Practitioner Family; Visit Provider Surgery
PROC: (CPT 11622; principal; 2021-11-25 08:10)
PROC: (CPT 11622; 2021-11-25 08:10)
DX: C44.41 Basal cell carcinoma of skin of scalp and neck (principal); D75.1 Secondary polycythemia; J44.9 Chronic obstructive pulmonary disease, unspecified; Z79.82 Long term (current) use of aspirin; E78.5 Hyperlipidemia, unspecified; F17.210 Nicotine dependence, cigarettes, uncomplicated
CPT/HCPCS: 11622; 12041; 36561; 77001; 88304; C1788; J1644; J2250; J2370; J2704; J3010; J3490; J7030

== ENCOUNTER 2021-11-30 07:53 | Oncology outpatient (recurring) (ONCR) | payer MEDICARE, MEDICAID, SELFPAY ==
[2021-11-30 08:36] LABS: Basophils # 0.1 10^3/uL (0.0-0.1); Eosinophils # 0.3 10^3/uL (0.0-0.8); Eosinophils % 2.6 %; Hematocrit 44.3 % (42.0-52.0); Hemoglobin 13.6 g/dL (11.7-16.6); Lymphocytes # 1.9 10^3/uL (0.8-4.8); Lymphocytes % 15.8 %; Mean Corpuscular HGB Conc 30.7 g/dL (30.0-36.0); Mean Corpuscular Hemoglobin 22.1 pg (28.0-34.0); Mean Corpuscular Volume 72.1 fl (80-94); Mean Platelet Volume 9.9 fL (7.4-10.4); Monocytes # 0.9 10^3/uL (0.2-0.9); Monocytes % 7.2 %; Neutrophils % 72.9 %; Nucleated Red Blood Cells % 0 %; Platelet Count 712 10^3/cmm (130-400); Red Blood Count 6.14 10^6/uL (4.1-5.3); Red Cell Distribution Width 23.1 % (12.1-15.1); White Blood Count 11.9 10^3/uL (4.0-10.0)
== END 2021-12-22 23:59 | disposition home or self-care (01) ==
PROVIDERS: Nurse Practitioner; PCP Nurse Practitioner Family; Visit Provider Internal Medicine Hematology & Oncology
DX: D45 Polycythemia vera (principal); J43.2 Centrilobular emphysema; F17.210 Nicotine dependence, cigarettes, uncomplicated; R91.1 Solitary pulmonary nodule
CPT/HCPCS: 36591; 85025; 99214

== ENCOUNTER 2021-12-06 09:08 | Outpatient (CLI) | payer MEDICARE, MEDICAID, SELFPAY ==
--- NOTE | 2021-12-06 | ECG_ITS ---
[facility] Test Date: 2021-12-06 Pat Name: Fransisco Denis Department: Room: Gender: Male Technical Communicator: : 1955 Requested By: Henrique [employer] Order Number: [id number] Estefany MD: Anish Gaspar M.D. Interpretive Statements NAME OF STUDY: LEXISCAN SESTAMIBI STRESS TEST INDICATION: [gandhi] Procedure: At the baseline, the blood pressure was 137/81 mmHg with a heart rate of 65 bpm. The electrocardiogram showed normal sinus rhythm, normal axis with normal ST and T's. The Lexiscan was infused over a period of 20 seconds. A total of 0.4 mg of Lexiscan was infused. The stress phase was continued for a total of 5 minutes. Heart rate was at the end of stress phase was 89 bpm and a blood pressure of 148/85 mmHg. The EKG at the peak infusion revealed since normal sinus rhythm with no significant ST-T wave changes. Sestamibi was injected 20 seconds after the Lexiscan infusion. Blood pressure at the end of recovery phase was 154/79 mmHg with a heart rate of 83bpm. Conclusion: 1. Normal EKG response to Lexiscan infusion 2. No Lexiscan induced chest pain or cardiac arrhythmia. 3. Normal blood pressure and heart rate response. 4. Sestamibi/sestamibi perfusion scan pending; see separate report. Electronically Signed On 12-13-2021 0:13:55 CDT by Anish Gaspar M.D. [email or web address]
[2021-12-06 10:00] VITALS: BMI 25.1
--- NOTE | 2021-12-06 10:48 | NMCV_ITS ---
NM mervin perf SPECT r/s* [id number] Fransisco Denis Age: 66 Gender: M : 1955 Exam Date: 12/06/2021 10:48 Ordering Phys: Henrique Cid MD Technologist: LEENA Quintana Exam Location: [facility] Indications: SHORTNESS OF BREATH STRESS TEST Please see separate stress test report in [facility] for full findings IMAGE PROTOCOL Rest/Stress 1 Lexiscan Day Radiopharmaceutical Dose (mCi) Administration Site Administered by Rest: Tc-99m 10.9 IV LEENA Parsons Sestamibi Stress:Tc-99m 32.7 IV LEENA Parsons Sestamibi Rest: 06-Dec-2021 60 Discovery 630 Stress: 06-Dec-2021 30 Discovery 630 0.4mg Lexiscan. Images obtained in supine and prone position. SPECT RESULTS Technical Quality: Excellent Raw Data Analysis: Normal Image Corrections: No attenuation or motion correction applied Summed Stress Score: 1 Summed Rest Score: 2 Summed Difference Score: 0 PERFUSION FINDINGS Homogenous radiotracer uptake throughout the myocardium. No evidence of ischemia seen. FUNCTIONAL RESULTS (calculated via Gated SPECT) Stress Image LV EF (%): 62 Stress EDV (mL):112 TID: 0.89 Stress ESV (mL):43 FUNCTIONAL FINDINGS: There is normal left ventricular systolic function. IMPRESSIONS 1. Normal myocardial perfusion imaging with no evidence of ischemia. 2. LV systolic function is normal Anish Gaspar MD (Electronically Signed) Final Date: 06 December 2021 16:29 S
[2021-12-06] MEDS: regadenoson 0.4 Mg/5 ml Syringe IVP (11:55)
[2021-12-06 12:05] VITALS: BP 154/79; PULSE 84
== END 2021-12-06 09:09 | disposition home or self-care (01) ==
LOC: CDL 09:10
PROVIDERS: PCP Nurse Practitioner Family; Visit Provider Internal Medicine Pulmonary Disease
DX: R06.09 Other forms of dyspnea (principal)
CPT/HCPCS: 78452; 93017; A9500; J2785

== ENCOUNTER → 2021-12-07 09:19 | Outpatient (BNVA) | payer MEDICARE, MEDICAID, SELFPAY | PROVIDERS: PCP Nurse Practitioner Family; Visit Provider Surgery | DX: Z98.890 Other specified postprocedural states (principal); Z95.828 Presence of other vascular implants and grafts | CPT/HCPCS: 99214 ==

== ENCOUNTER 2021-12-21 06:38 | Outpatient (CLI) | payer MEDICARE, MEDICAID, SELFPAY ==
--- NOTE | 2021-12-21 07:46 | PFTS_ITS ---
Date of Study:12/21/21 Date of Dictation: MECHANICS: Forced vital capacity (FVC) is normal. Forced expiratory volume in one second (FEV1) is normal. FEV1/FVC is reduced. FLOW VOLUME LOOP: Reduced flow at all lung volumes with scooping. LUNG VOLUMES: Total lung capacity (TLC) is normal. Residual volume (RV) is increased. DIFFUSING CAPACITY FOR CARBON MONOXIDE: Normal. INTERPRETATION: The postbronchodilator spirometry is consistent with mild airflow obstruction. There is no significant postbronchodilator response. Lung volumes are consistent with mild air trapping. Gas exchange (DLCO) is normal. MTDD
--- NOTE | 2021-12-21 08:30 | CT_ITS ---
WS: [id number] CT CHEST WITHOUT INTRAVENOUS CONTRAST HISTORY: f/u lung nodule after VATS procedure, history of lung cancer. TECHNIQUE: Contiguous 5 mm axial imaging performed on the thorax. Coronal and sagittal reformats are submitted. All CT scans at [facility] use at least one of these dose optimization techniques: automated exposure control; mA and/or kV adjustment per patient size (includes targeted exams where dose is matched to clinical indication); or iterative reconstruction. CONTRAST: None DLP: 800.50 mGy.cm COMPARISON: 03/23/2021, 10/03/2019 Lungs and central airway: Partial LEFT upper lobe resection. The lobulated soft tissue mass previousl y described is no longer present. There is now a small amount of pleural thickening towards the lingu la. Slightly spiculated 4 mm nodule RIGHT upper lobe is stable. There are a few scattered micronodule s which are all unchanged in size. There are no suspicious enlarging or new lesions. Pleura: No effusions. Focal area of mild pleural thickening is unchanged in the RIGHT middle lobe. Heart and pericardium: Normal size heart with no pericardial effusion. Mediastinum and eliud: There are small benign appearing mediastinal and hilar lymph nodes. Surgical moseley tures at the LEFT hilum. Vessels: Normal size aortic and pulmonary artery. No coronary artery calcifications. Chest wall and lower neck: RIGHT subclavian Mediport. No axillary adenopathy. Upper abdomen: Cholelithiasis. No adrenal mass. Unenhanced liver is negative. Osseous structures: Mild anterior wedging of T4. No interval change. CT/CT chest wo con [id number] IMPRESSION: 1. Status post partial LEFT upper lobectomy. Previously described nodule is no longer present. 2. Stable 4 mm slightly spiculated nodule RIGHT upper lobe. Pleural thickening in the mid RIGHT thorax and a few small micronodules are stable. 3. No adenopathy. 4. Cholelithiasis.
== END 2021-12-21 06:39 | disposition home or self-care (01) ==
LOC: RT 06:39
PROVIDERS: PCP Nurse Practitioner Family; Visit Provider Internal Medicine Pulmonary Disease
DX: R91.1 Solitary pulmonary nodule (principal); J44.9 Chronic obstructive pulmonary disease, unspecified
CPT/HCPCS: 71250; 94060; 94726; 94729; J7611

== ENCOUNTER 2021-12-21 06:39 | Outpatient (CLI) | payer MEDICARE, MEDICAID, SELFPAY | END 2021-12-21 06:40 | disposition home or self-care (01) | LOC: RT 06:39 | PROVIDERS: PCP Nurse Practitioner Family; Visit Provider Internal Medicine Pulmonary Disease | DX: R91.1 Solitary pulmonary nodule (principal) | CPT/HCPCS: 94060; 94726; 94729 ==

== ENCOUNTER 2022-01-24 11:43 | Oncology outpatient (recurring) (ONCR) | payer MEDICARE, MEDICAID, SELFPAY ==
[2022-01-24 12:21] LABS: Basophils # 0.1 10^3/uL (0.0-0.1); Eosinophils # 0.3 10^3/uL (0.0-0.8); Eosinophils % 2.9 %; Hematocrit 43.6 % (42.0-52.0); Hemoglobin 14.2 g/dL (11.7-16.6); Lymphocytes # 1.8 10^3/uL (0.8-4.8); Lymphocytes % 19.1 %; Mean Corpuscular HGB Conc 32.6 g/dL (30.0-36.0); Mean Corpuscular Hemoglobin 25.9 pg (28.0-34.0); Mean Corpuscular Volume 79.4 fl (80-94); Mean Platelet Volume 9.5 fL (7.4-10.4); Monocytes # 0.5 10^3/uL (0.2-0.9); Monocytes % 5.3 %; Neutrophils # 6.67 10^3/uL (1.8-7.7); Neutrophils % 71.2 %; Nucleated Red Blood Cells % 0 %; Platelet Count 366 10^3/cmm (130-400); Red Blood Count 5.49 10^6/uL (4.1-5.3); Red Cell Distribution Width 25.1 % (12.1-15.1); White Blood Count 9.4 10^3/uL (4.0-10.0)
[2022-01-24 12:44] LABS: Alanine Aminotransferase 11 U/L (0-41); Albumin Level 4.3 g/dL (3.5-5.2); Alkaline Phosphatase 91 U/L (40-130); Blood Urea Nitrogen 12 mg/dL (8-23); Calcium 8.8 mg/dL (8.5-10.5); Carbon Dioxide 23 mmol/L (22-29); Chloride 103 mmol/L (98-107); Globulin 2.4 g/dL (1.3-4.6); Glucose 126 mg/dL (65-115); Osmolality Calculated 285 mOsm/kg (285-295); Sodium 137 mmol/L (136-145); Total Bilirubin 0.3 mg/dL (0.15-1.2); Total Protein 6.7 g/dL (6.6-8.7)
[2022-01-24 12:46] LABS: Anion Gap 15.3 (5-19); Aspartate Amino Transferase 18 U/L (0-40); Potassium 4.3 mmol/L (3.5-5.1)
== END 2022-02-21 23:59 | disposition home or self-care (01) ==
PROVIDERS: PCP Nurse Practitioner Family; Visit Provider Internal Medicine Hematology & Oncology
DX: D45 Polycythemia vera (principal)
CPT/HCPCS: 36591; 80053; 85025

== ENCOUNTER 2022-02-28 12:26 | Oncology outpatient (recurring) (ONCR) | payer MEDICARE, MEDICAID, SELFPAY ==
[2022-02-28 12:49] LABS: Basophils # 0.1 10^3/uL (0.0-0.1); Basophils % 0.9 %; Eosinophils # 0.2 10^3/uL (0.0-0.8); Eosinophils % 2.8 %; Hematocrit 43.1 % (42.0-52.0); Hemoglobin 13.7 g/dL (11.7-16.6); Lymphocytes # 1.9 10^3/uL (0.8-4.8); Lymphocytes % 23.2 %; Mean Corpuscular HGB Conc 31.8 g/dL (30.0-36.0); Mean Corpuscular Hemoglobin 27.2 pg (28.0-34.0); Mean Corpuscular Volume 85.7 fl (80-94); Mean Platelet Volume 9.2 fL (7.4-10.4); Monocytes # 0.5 10^3/uL (0.2-0.9); Monocytes % 6.6 %; Neutrophils # 5.33 10^3/uL (1.8-7.7); Neutrophils % 65.9 %; Nucleated Red Blood Cells % 0 %; Platelet Count 410 10^3/cmm (130-400); Red Blood Count 5.03 10^6/uL (4.1-5.3); Red Cell Distribution Width 18.5 % (12.1-15.1); White Blood Count 8.1 10^3/uL (4.0-10.0)
== END 2022-03-23 23:59 | disposition home or self-care (01) ==
PROVIDERS: PCP Nurse Practitioner Family; Visit Provider Internal Medicine Hematology & Oncology
DX: D45 Polycythemia vera (principal); J43.2 Centrilobular emphysema; F17.210 Nicotine dependence, cigarettes, uncomplicated; R91.1 Solitary pulmonary nodule; Z79.899 Other long term (current) drug therapy; Z79.64 Long term (current) use of myelosuppressive agent
CPT/HCPCS: 36591; 85025; 99214

== ENCOUNTER → 2022-03-01 14:37 | Outpatient (BNVA) | payer MEDICARE, MEDICAID, SELFPAY | PROVIDERS: PCP Nurse Practitioner Family; Visit Provider Surgery | DX: Z95.828 Presence of other vascular implants and grafts (principal); D45 Polycythemia vera | CPT/HCPCS: 99213 ==

== ENCOUNTER 2022-03-02 10:24 | Day surgery (SDC) | payer MEDICARE, MEDICAID, SELFPAY ==
[2022-03-01 17:31] VITALS: BMI 25.8
[2022-03-02] VITALS (13 sets, daily range): BP systolic 148–168; BP diastolic 83–107; PULSE 63–81; RESP 16–20; TEMP 36.6–36.8; O2SAT 95–100
[2022-03-02] MEDS: sodium chloride 0.9% 1,000 ML 30 ML IV (10:59)
--- NOTE | 2022-03-02 12:28 | W.PM.OPSUD ---
Surgery/Procedure H&P Update DATE OF PROCEDURE: March 02, 2022 DATE H&P PERFORMED: 03/01/22 PREOP DIAGNOSIS: Mediport in place PLANNED PROCEDURE: Operation Date: 03/02/22 12:10 Proposed Procedures p port removal [id number] Z95.9(Not Applicable) - Patricio Millan DO
[2022-03-02] MEDS: ceFAZolin 2,000 MG in sodium chloride 0.9% (plus) 50 ML 100 MG IV (12:36)
--- NOTE | 2022-03-02 12:57 | PM.OP ---
Operative Report Date of procedure: March 02, 2022 Pre-op diagnosis: Preop Diagnosis Mediport in place Post-op diagnosis: other (mediport removed) Procedure done: Mediport removal Specimens removed/disposition: Mediport Surgeon: Dr. Patricio Millan DO Anesthesia: Local Estimated blood loss (mL): 2 Complications: None apparent Brief History: This is a very pleasant 66-year-old gentleman with polycythemia vera who no longer needs his Mediport and desires removal. The risks and benefits were explained and documented. Procedure: Patient was taken to the operating room and her right chest was prepped and draped in a sterile manner. 20 mL of 1% lidocaine with 0.5% Marcaine was infiltrated around the MediPort and catheter in the [] subclavian vein. Using a 15 blade the previous incision was opened, the subcutaneous tissue was divided using electrocautery and MediPort along the catheter was dissected free from the surrounding subcutaneous tissue and removed entirely. The wound was irrigated with saline, hemostasis ensured with electrocautery and subcutaneous tissue was approximated using 3-0 Vicryl suture and skin was closed using running subcuticular 4-0 Monocryl suture. 4x4 and sterile dressings were used as a pressure dressing. The patient was transferred to the recovery room in stable condition.
[2022-03-02] MEDS: HYDROcodone-acetaminophen 7.5-325 mg Tablet 1 TAB PO (13:14)
== END 2022-03-02 13:22 | disposition home or self-care (01) ==
PROVIDERS: PCP Nurse Practitioner Family; Visit Provider Surgery
PROC: (CPT 36589; principal; 2022-03-02 12:00)
DX: Z45.2 Encounter for adjustment and management of vascular access device (principal); F17.210 Nicotine dependence, cigarettes, uncomplicated
CPT/HCPCS: 36590; J0690; J7030

== ENCOUNTER → 2022-06-14 12:58 | Outpatient (BNVA) | payer MEDICARE, MEDICAID, SELFPAY | PROVIDERS: PCP Nurse Practitioner Family; Visit Provider Internal Medicine Pulmonary Disease | DX: J43.2 Centrilobular emphysema (principal); C34.12 Malignant neoplasm of upper lobe, left bronchus or lung; J82.83 Eosinophilic asthma; Z71.6 Tobacco abuse counseling; M79.2 Neuralgia and neuritis, unspecified; F17.210 Nicotine dependence, cigarettes, uncomplicated | CPT/HCPCS: 99214 ==

== ENCOUNTER → 2022-06-15 08:16 | Outpatient (BNVA) | payer MEDICARE, MEDICAID, SELFPAY | PROVIDERS: PCP Nurse Practitioner Family; Visit Provider Internal Medicine Pulmonary Disease | DX: T78.40XA Allergy, unspecified, initial encounter (principal) | CPT/HCPCS: 82785; 85025; 86003 ==

== ENCOUNTER 2022-06-15 11:00 | Oncology outpatient (recurring) (ONCR) | payer MEDICARE, MEDICAID, SELFPAY ==
[2022-06-01 12:14] LABS: Basophils # 0.1 10^3/uL (0.0-0.1); Basophils % 0.8 %; Eosinophils # 0.3 10^3/uL (0.0-0.8); Eosinophils % 2.7 %; Hematocrit 52.4 % (42.0-52.0); Hemoglobin 16.8 g/dL (11.7-16.6); Lymphocytes # 2.1 10^3/uL (0.8-4.8); Lymphocytes % 21.2 %; Mean Corpuscular HGB Conc 32.1 g/dL (30.0-36.0); Mean Corpuscular Hemoglobin 30.9 pg (28.0-34.0); Mean Corpuscular Volume 96.5 fl (80-94); Mean Platelet Volume 9.8 fL (7.4-10.4); Monocytes # 0.7 10^3/uL (0.2-0.9); Monocytes % 7.3 %; Neutrophils # 6.61 10^3/uL (1.8-7.7); Nucleated Red Blood Cells % 0 %; Platelet Count 400 10^3/cmm (130-400); Red Blood Count 5.43 10^6/uL (4.1-5.3); Red Cell Distribution Width 15.6 % (12.1-15.1); White Blood Count 9.9 10^3/uL (4.0-10.0)
== END 2022-06-21 23:59 | disposition home or self-care (01) ==
PROVIDERS: PCP Nurse Practitioner Family; Visit Provider Internal Medicine Hematology & Oncology
DX: D45 Polycythemia vera (principal)
CPT/HCPCS: 36415; 85025; 99195; 99214

== ENCOUNTER 2022-06-29 06:00 | Oncology outpatient (recurring) (ONCR) | payer MEDICARE, MEDICAID, SELFPAY ==
[2022-06-29 11:09] LABS: Basophils # 0.1 10^3/uL (0.0-0.1); Eosinophils # 0.3 10^3/uL (0.0-0.8); Eosinophils % 2.8 %; Hematocrit 46.2 % (42.0-52.0); Hemoglobin 14.8 g/dL (11.7-16.6); Lymphocytes # 1.5 10^3/uL (0.8-4.8); Lymphocytes % 16.8 %; Mean Corpuscular Hemoglobin 29.2 pg (28.0-34.0); Mean Corpuscular Volume 91.1 fl (80-94); Mean Platelet Volume 10.7 fL (7.4-10.4); Monocytes # 0.5 10^3/uL (0.2-0.9); Monocytes % 5.6 %; Neutrophils # 6.56 10^3/uL (1.8-7.7); Neutrophils % 73.1 %; Nucleated Red Blood Cells % 0 %; Platelet Count 439 10^3/cmm (130-400); Red Blood Count 5.07 10^6/uL (4.1-5.3); Red Cell Distribution Width 13.9 % (12.1-15.1)
== END 2022-07-22 23:59 | disposition home or self-care (01) ==
LOC: ONCMED 07-18 19:22
PROVIDERS: PCP Nurse Practitioner Family; Visit Provider Internal Medicine Hematology & Oncology
DX: D45 Polycythemia vera (principal); F17.210 Nicotine dependence, cigarettes, uncomplicated; R91.1 Solitary pulmonary nodule; M47.897 Other spondylosis, lumbosacral region; M51.36 Other intervertebral disc degeneration, lumbar region; R21 Rash and other nonspecific skin eruption; M48.061 Spinal stenosis, lumbar region without neurogenic claudication; Z79.1 Long term (current) use of non-steroidal anti-inflammatories (NSAID); Z79.82 Long term (current) use of aspirin; Z79.891 Long term (current) use of opiate analgesic; Z79.899 Other long term (current) drug therapy
CPT/HCPCS: 36415; 85025; 99214

== ENCOUNTER 2022-06-30 13:44 | Outpatient (CLI) | payer MEDICARE, MEDICAID, SELFPAY ==
--- NOTE | 2022-06-30 15:00 | CT_ITS ---
WS: [id number] CT CHEST WITHOUT INTRAVENOUS CONTRAST HISTORY: lung cancer f/u TECHNIQUE: Contiguous 5 mm axial imaging performed on the thorax. Coronal and sagittal reformats are submitted. All CT scans at [facility] use at least one of these dose optimization techniques: automated exposure control; mA and/or kV adjustment per patient size (includes targeted exams where dose is matched to clinical indication); or iterative reconstruction. CONTRAST: None DLP: 429.81 mGy.cm COMPARISON: 12/21/2021, 02/24/2021 and 10/03/2019 Lungs and central airway: Mild pulmonary hyperexpansion. Status post partial LEFT upper lobectomy. No recurrence along the surgical margin. Slightly spiculated 4 mm nodule in the RIGHT upper lobe is unc hanged. There are a few tiny micronodules scattered throughout the lungs. None of these nodules have increased in size. There are no masses or pneumonia. Pleura: Normal. No pleural effusion. Heart and pericardium: Normal size heart with no pericardial effusion. Mediastinum and eliud: No mediastinum or hilar adenopathy. Vessels: Normal size aortic and pulmonary artery. No coronary artery calcifications. Chest wall and lower neck: No soft tissue masses. Upper abdomen: Cholelithiasis, 20 mm stone. No acute cholecystitis. Osseous structures: Mild anterior wedging T4. Stable fracture. Prior healed rib fractures in the post erior LEFT thorax. CT/CT chest wo con [id number] IMPRESSION: 1. Status post partial LEFT upper lobectomy. 2. No increase in size of the pulmonary nodules which have been previously wen cribed. Majority of these are micronodules and no further workup is necessary. No enlarging nodules or adenopathy. 3. Cholelithiasis without acute cholecystitis.
== END 2022-06-30 13:45 | disposition home or self-care (01) ==
PROVIDERS: PCP Nurse Practitioner Family; Visit Provider Internal Medicine Pulmonary Disease
DX: C34.12 Malignant neoplasm of upper lobe, left bronchus or lung (principal); Z90.2 Acquired absence of lung [part of]; R91.8 Other nonspecific abnormal finding of lung field; K80.20 Calculus of gallbladder without cholecystitis without obstruction
CPT/HCPCS: 71250; 82785; 85025; 86003

== ENCOUNTER → 2022-08-03 08:39 | Outpatient (BNVA) | payer MEDICARE, MEDICAID, SELFPAY | PROVIDERS: PCP Nurse Practitioner Family; Visit Provider Internal Medicine Hematology & Oncology | DX: C34.12 Malignant neoplasm of upper lobe, left bronchus or lung (principal); D45 Polycythemia vera; Z79.899 Other long term (current) drug therapy | CPT/HCPCS: 85025 ==

== ENCOUNTER 2022-08-15 13:25 | Oncology outpatient (recurring) (ONCR) | payer MEDICARE, MEDICAID, SELFPAY ==
[2022-08-15 14:24] VITALS: BP 127/92; PULSE 82; RESP 16; TEMP 37.1; O2SAT 97
[2022-08-15 14:41] VITALS: BP 143/91; PULSE 87; RESP 16; TEMP 36.7; O2SAT 97
== END 2022-08-21 23:59 | disposition home or self-care (01) ==
PROVIDERS: PCP Nurse Practitioner Family; Visit Provider Internal Medicine Hematology & Oncology
DX: C34.12 Malignant neoplasm of upper lobe, left bronchus or lung
CPT/HCPCS: 99195

== ENCOUNTER 2022-09-05 12:00 | Oncology outpatient (recurring) (ONCR) | payer MEDICARE, MEDICAID, SELFPAY ==
[2022-08-22 13:42] LABS: Basophils # 0.1 10^3/uL (0.0-0.1); Basophils % 1.2 %; Eosinophils # 0.1 10^3/uL (0.0-0.8); Eosinophils % 1.9 %; Hematocrit 43.4 % (42.0-52.0); Hemoglobin 13.9 g/dL (11.7-16.6); Lymphocytes # 1.8 10^3/uL (0.8-4.8); Lymphocytes % 23.8 %; Mean Corpuscular Hemoglobin 27.9 pg (28.0-34.0); Mean Platelet Volume 10.8 fL (7.4-10.4); Monocytes # 0.4 10^3/uL (0.2-0.9); Monocytes % 5.3 %; Neutrophils # 4.99 10^3/uL (1.8-7.7); Neutrophils % 67.3 %; Nucleated Red Blood Cells % 0 %; Platelet Count 181 10^3/cmm (130-400); Red Blood Count 4.99 10^6/uL (4.1-5.3); White Blood Count 7.4 10^3/uL (4.0-10.0)
--- NOTE | 2022-09-05 12:18 | PC.NURSE ---
lab drawn via rfa x1 attempt, tolerated well, pressures dressing applied.
[2022-09-05 12:22] LABS: Basophils # 0.1 10^3/uL (0.0-0.1); Basophils % 1.1 %; Eosinophils # 0.1 10^3/uL (0.0-0.8); Eosinophils % 1.9 %; Hematocrit 41.7 % (42.0-52.0); Hemoglobin 13.4 g/dL (11.7-16.6); Lymphocytes # 1.9 10^3/uL (0.8-4.8); Lymphocytes % 25.5 %; Mean Corpuscular HGB Conc 32.1 g/dL (30.0-36.0); Mean Corpuscular Hemoglobin 27.2 pg (28.0-34.0); Mean Corpuscular Volume 84.6 fl (80-94); Mean Platelet Volume 9.9 fL (7.4-10.4); Monocytes # 0.6 10^3/uL (0.2-0.9); Monocytes % 7.7 %; Neutrophils # 4.79 10^3/uL (1.8-7.7); Neutrophils % 63.4 %; Nucleated Red Blood Cells % 0 %; Platelet Count 342 10^3/cmm (130-400); Red Blood Count 4.93 10^6/uL (4.1-5.3); Red Cell Distribution Width 18.9 % (12.1-15.1); White Blood Count 7.5 10^3/uL (4.0-10.0)
[2022-09-05 15:35] LABS: Alanine Aminotransferase 14 U/L (0-41); Albumin Level 4.3 g/dL (3.5-5.2); Alkaline Phosphatase 100 U/L (40-130); Anion Gap 16.8 (5-19); Aspartate Amino Transferase 17 U/L (0-40); Blood Urea Nitrogen 13 mg/dL (8-23); Calcium 8.6 mg/dL (8.5-10.5); Carbon Dioxide 21 mmol/L (22-29); Chloride 104 mmol/L (98-107); Globulin 2.7 g/dL (1.3-4.6); Glomerular Filtration Rate 84.4 mL/min (90-130); Glucose 95 mg/dL (65-115); Osmolality Calculated 286 mOsm/kg (285-295); Potassium 3.8 mmol/L (3.5-5.1); Sodium 138 mmol/L (136-145); Total Bilirubin 0.4 mg/dL (0.15-1.2)
== END 2022-09-21 23:59 | disposition home or self-care (01) ==
PROVIDERS: Nurse Practitioner; Nurse Practitioner Family; PCP Nurse Practitioner Family; Visit Provider Internal Medicine Hematology & Oncology
DX: D45 Polycythemia vera (principal); F17.210 Nicotine dependence, cigarettes, uncomplicated; R53.83 Other fatigue; R21 Rash and other nonspecific skin eruption; Z98.890 Other specified postprocedural states; Z79.82 Long term (current) use of aspirin; Z79.891 Long term (current) use of opiate analgesic; Z79.899 Other long term (current) drug therapy
CPT/HCPCS: 36415; 80053; 85025; 99214

== ENCOUNTER 2022-09-23 09:53 | Emergency (ER) | payer MEDICARE, MEDICAID, SELFPAY ==
[2022-09-23 10:02] VITALS: BP 108/74; PULSE 67; RESP 16; TEMP 36.7; O2SAT 97; BMI 25.0
--- NOTE | 2022-09-23 10:33 | XR_ITS ---
WS: [id number] Exam: XR chest 1V portable [id number] Date/Time of Exam: 09/23/2022 10:39 AM Reason For Exam: cough and wheezing There is plaque atelectasis in the lingula. The lungs are clear and fully inflated. Normal cardiomedi astinal silhouette. Regional bony elements appear normal. XR/XR chest 1V portable [id number] IMPRESSION: 1. No acute cardiopulmonary finding.
--- NOTE | 2022-09-23 10:34 | W.ED.GENADLT ---
HPI - General Adult General: Chief complaint: General Medical Stated complaint: Fever, Weakness, Pain all over Time Seen by Provider: 09/23/22 10:01 History of Present Illness: Patient is a 67-year-old male comes to the ED with cough. Patient has a history of lung cancer, polycythemia vera and has had left upper lobe of lung surgically removed. Patient's symptoms started approximately 4 days ago. Patient was recently exposed to another person who was having similar upper respiratory symptoms. Patient says he is having a cough that is occasionally productive with thick clear sputum, nasal drainage and congestion, chills and body aches. Denies any fevers, vomiting or chest pain. Associated symptoms: Deny chest pain, dyspnea, headache(s), nausea, rash, palpitations or vomiting Review of Systems Const: Reports: chills, body aches and fatigue; Denies: fever(s) Eyes: Denies: change in vision or eye discomfort ENMT: Reports: nasal discharge and nasal congestion; Denies: throat pain or odynophagia Card: Denies: chest pain, palpitations, edema, swelling of feet/ankles, dyspnea on exertion or orthopnea Resp: Reports: productive cough; Denies: dyspnea or non-productive cough GI: Denies: abdominal pain, nausea, vomiting, diarrhea, constipation or hematochezia : Denies: flank pain, difficulty urinating, dysuria or hematuria Musc: Denies: neck pain, back pain or extremity swelling Skin/Breast: Denies: rash or new lesions Neuro: Denies: headache(s), numbness in extremities or weakness in extremities [facility] PFSH: Medical History History of basal cell carcinoma (BCC) Hyperlipidemia Polycythemia Skin lesion Surgical History H/O local excision of skin lesion (11/25/21) left side of neck History of colonoscopy History of hemiarthroplasty of shoulder History of lobectomy of lung History of local excision of skin lesion 2X Port-A-Cath in place (11/25/21) Status post appendectomy Family History Denies family history of Anesthesia complication Bleeding disorder Social History Smoking and tobacco status: current every day smoker (4 to 5 cigs/day - smoked 50+ years) cigarettes Packs smoked per day: 2 Years cigarettes smoked: 50 [ Other cigarette details: down to 2-3 cig per day] Quit status (tobacco): considering quitting Second hand smoke exposure: No Alcohol intake: current Alcohol intake frequency: holidays/special occasions only Alcohol type: beer Substance/Drug Use: never Adopted: No Caregiver/support person: Yes Lives independently: Yes Household members: none Housing: House Marital status: Legally service: Yes branch: [email or web address] Current occupational status: disabled Current occupational exposures/hazards: No Pets and animals: No Sexually active: No Do you think of yourself as: Straight/Heterosexual Current gender identity: Male Adrianne/Mosque: [employer] Special adrianne needs: No Agree to transfusion: No Financial difficulty paying for basics: Decline to Answer Physical Exam Const: COMMON NORMALS: no acute distress, patient oriented x3 and alert GENERAL APPEARANCE: cooperative and comfortable HENMT: COMMON NORMALS: normocephalic HEAD & SCALP: normocephalic MOUTH: Normal oral and palatal mucosa present THROAT: posterior oropharynx normal and uvula midline Neck/C-Spine: COMMON NORMALS: supple GENERAL: Yes normal visual inspection Resp: COMMON NORMALS: normal respiratory effort, No retractions and No use of accessory muscles AUSCULTATION: wheezes expiratory wheezes and throughout Cardio: COMMON NORMALS: regular rate, regular rhythm, S1 normal heart sound present, S2 normal heart sound present, No gallops present (Cardio), No clicks present (Cardio), No murmurs present (Cardio) and Peripheral pulses 2+ throughout RATE: regular rate RHYTHM: regular rhythm HEART SOUNDS: S1 normal heart sound present and S2 normal heart sound present PERIPHERAL PULSES: Peripheral pulses 2+ throughout GI: COMMON NORMALS: Normal to inspection, nondistended, normoactive bowel sounds present, Soft to palpation, non-tender and no masses PALPATION: Yes Soft to palpation : COMMON NORMALS: Yes no CVA tenderness BLADDER/KIDNEY EXAM: Yes no CVA tenderness Back/Pelvis: COMMON NORMALS: no CVA tenderness Extremity: COMMON NORMALS: normal to inspection Neuro: COMMON NORMALS: patient oriented x3 SENSORIUM/ORIENTATION: Yes alert GAIT: Yes Normal gait present Skin: GENERAL SKIN EXAM: dry skin Course Vital Signs: Vital signs: Vital Signs Temperature 98.0 F 09/23/22 10:02 Pulse Rate 70 09/23/22 11:09 Respiratory Rate 16 09/23/22 11:04 Blood Pressure 108/74 09/23/22 10:02 Pulse Oximetry 94 09/23/22 11:04 Oxygen Delivery Me thod Room Air 09/23/22 11:04 MDM - General Adult Medical Decision Making Patient is a 67-year-old male comes to the ED with cough. Patient has a history of lung cancer, polycythemia vera and has had left upper lobe of lung surgically removed. Patient's symptoms started approximately 4 days ago. Patient was recently exposed to another person who was having similar upper respiratory symptoms. Patient says he is having a cough that is occasionally productive with thick clear sputum, nasal drainage and congestion, chills and body aches. Denies any fevers, vomiting or chest pain. Vitals are stable. Exam shows a healthy nontoxic-appearing 67-year-old male in no acute distress or pain. Patient does have some bilateral expiratory wheezing throughout lungs, but rest of exam is benign. Chest x-ray shows no acute findings. Patient diagnosed with a viral syndrome and given his past medical history I discharge patient home with a prescription for an antibiotic and steroid. Told to follow-up with his PCP within the next week for reevaluation. Return to ED precautions given. Patient understood and agreed with plan. Lab Data Radiology Impressions Chest X-Ray 09/23/22 10:33 IMPRESSION: 1. No acute cardiopulmonary finding. Discharge Plan Discharge Patient Disposition: Home Clinical Impression: Viral syndrome Condition: Stable Prescriptions: New doxycycline hyclate 100 mg capsule 100 mg PO BID 10 Days Qty: 20 0RF methylprednisolone 4 mg tablets,dose pack See Rx Instructions .ROUTE .COMPLEX Qty: 21 0RF Rx Instructions: orally per package directions No Action montelukast [Singulair] 10 mg tablet 10 mg PO DAILY Qty: 30 3RF Trelegy Ellipta 100-62.5-25 mcg blister with device 1 inh inhalation DAILY Qty: 60 3RF hydroxyurea [Hydrea] 500 mg capsule 500 mg PO DAILY Qty: 30 3RF cyclobenzaprine 10 mg tablet 10 mg PO TID PRN (Reason: muscle spasm) Qty: 30 1RF Rx Instructions: for back and leg pain hydrocodone-acetaminophen 7.5-325 mg tablet 1 tab PO Q6H PRN (Reason: pain) 5 Days Qty: 60 0RF Rx Instructions: 1-2 tablets every 4-6 hours prn severe back pain acetaminophen [Tylenol] 325 mg tablet 325 mg PO QID PRN hydrocodone-acetaminophen 7.5-325 mg tablet 2 tab PO Q4H 5 Days Qty: 60 0RF Rx Instructions: 1-2 tabs every 4 hours prn pain Discharge Orders: Discharge ED (Routine); Ordered 09/23/22 Ordered By: Peyman Frey Referrals: Gypsy Gaitan FNP-C [Primary Care Provider] - Discharge Diet: Regular Discharge Activity: Increase activity as tolerated Patient Instructions: Viral Syndrome (ED) Activity Restrictions/Additional Instructions: Follow-up with medical provider as directed in the next 3 to 5 days for reevaluation. Take medications as prescribed. Return to the ER or your medical provider if condition worsens. Please read and understand discharge instructions. Thank you for choosing [facility] for your healthcare needs today. Please realize this is an emergency room and that we are providing you with a medical screening exam and this may not be complete and all inclusive of all the testing and or work up that you may need to determine your ailment or severity of your illness. It is very important that you follow up as instructed or that you return to the Emergency Department should you have concerns or if your condition changes or worsens in any way. Coding Level of Care Code ED Tool Specialist for Jose Eduardo Rucker
[2022-09-23 11:04] VITALS: PULSE 76; RESP 16; O2SAT 94
[2022-09-23] MEDS: ipratropium-albuterol 3 mL Neb 6 ML INHALATION (11:07)
[2022-09-23 11:09] VITALS: PULSE 70
[2022-09-23] MEDS: dexamethasone 10 mg/mL INJ IM (11:59)
== END 2022-09-23 12:05 | disposition home or self-care (01) ==
PROVIDERS: Emergency Provider Physician Assistant; PCP Nurse Practitioner Family
DX: B34.9 Viral infection, unspecified (principal); E78.5 Hyperlipidemia, unspecified; Z85.828 Personal history of other malignant neoplasm of skin; F17.210 Nicotine dependence, cigarettes, uncomplicated
CPT/HCPCS: 71045; 94640; 96372; 99284; J1100

== ENCOUNTER → 2022-09-27 08:55 | Outpatient (BNVA) | payer MEDICARE, MEDICAID, SELFPAY | PROVIDERS: PCP Nurse Practitioner Family; Visit Provider Internal Medicine Hematology & Oncology | DX: D45 Polycythemia vera (principal) | CPT/HCPCS: 85025 ==

== ENCOUNTER 2022-11-21 13:42 | Oncology outpatient (recurring) (ONCR) | payer MEDICARE, MEDICAID, SELFPAY ==
[2022-11-21 13:53] VITALS: BMI 25.2
[2022-11-21 13:54] VITALS: BP 132/80; PULSE 77; RESP 16; TEMP 36.9; O2SAT 97
[2022-11-21 14:09] LABS: Basophils % 0.6 %; Eosinophils # 0.1 10^3/uL (0.0-0.8); Hematocrit 41.2 % (42.0-52.0); Lymphocytes # 1.7 10^3/uL (0.8-4.8); Lymphocytes % 24.9 %; Mean Corpuscular Hemoglobin 33.1 pg (28.0-34.0); Mean Corpuscular Volume 97.4 fl (80-94); Mean Platelet Volume 10.1 fL (7.4-10.4); Monocytes # 0.6 10^3/uL (0.2-0.9); Monocytes % 8.2 %; Neutrophils # 4.39 10^3/uL (1.8-7.7); Neutrophils % 63.9 %; Nucleated Red Blood Cells % 0 %; Platelet Count 216 10^3/cmm (130-400); Red Blood Count 4.23 10^6/uL (4.1-5.3); Red Cell Distribution Width 18.4 % (12.1-15.1); White Blood Count 6.9 10^3/uL (4.0-10.0)
[2022-11-21 14:31] LABS: Alanine Aminotransferase 12 U/L (0-41); Albumin Level 4.4 g/dL (3.5-5.2); Alkaline Phosphatase 89 U/L (40-130); Anion Gap 16.3 (5-19); Aspartate Amino Transferase 15 U/L (0-40); Blood Urea Nitrogen 11 mg/dL (8-23); Carbon Dioxide 21 mmol/L (22-29); Chloride 105 mmol/L (98-107); Globulin 2.2 g/dL (1.3-4.6); Glomerular Filtration Rate 96.7 mL/min (90-130); Glucose 114 mg/dL (65-115); Osmolality Calculated 286 mOsm/kg (285-295); Potassium 4.3 mmol/L (3.5-5.1); Sodium 138 mmol/L (136-145); Total Bilirubin 0.3 mg/dL (0.15-1.2); Total Protein 6.6 g/dL (6.6-8.7)
== END 2022-11-21 23:59 | disposition home or self-care (01) ==
PROVIDERS: Nurse Practitioner Family; PCP Nurse Practitioner Family; Visit Provider Internal Medicine Hematology & Oncology
DX: D45 Polycythemia vera (principal)
CPT/HCPCS: 36415; 80053; 85025

== ENCOUNTER 2022-12-20 13:28 | Oncology outpatient (recurring) (ONCR) | payer MEDICARE, MEDICAID, SELFPAY ==
[2022-12-20 13:54] LABS: Basophils # 0.1 10^3/uL (0.0-0.1); Basophils % 0.6 %; Eosinophils # 0.1 10^3/uL (0.0-0.8); Eosinophils % 1.8 %; Hematocrit 43.2 % (37-53); Lymphocytes % 25.3 %; Mean Corpuscular HGB Conc 34.7 g/dL (30-55); Mean Corpuscular Hemoglobin 34.6 pg (27-33); Mean Corpuscular Volume 99.5 fl (82-101); Mean Platelet Volume 9.9 fL (7.4-10.4); Monocytes # 0.6 10^3/uL (0.2-0.9); Monocytes % 7.4 %; Neutrophils # 5.02 10^3/uL (1.8-7.7); Neutrophils % 64.4 %; Nucleated Red Blood Cells % 0 %; Platelet Count 262 10^3/cmm (157-399); Red Blood Count 4.34 10^6/uL (3.85-5.65); Red Cell Distribution Width 14.8 % (12.1-15.1)
[2022-12-20 14:10] LABS: Alanine Aminotransferase 11 U/L (0-41); Albumin Level 4.3 g/dL (3.5-5.2); Alkaline Phosphatase 100 U/L (40-130); Anion Gap 13.1 (5-19); Aspartate Amino Transferase 14 U/L (0-40); Blood Urea Nitrogen 14 mg/dL (8-23); Calcium 8.4 mg/dL (8.5-10.5); Carbon Dioxide 23 mmol/L (22-29); Chloride 104 mmol/L (98-107); Globulin 2.7 g/dL (1.3-4.6); Glomerular Filtration Rate 112.8 mL/min (90-130); Glucose 101 mg/dL (65-115); Osmolality Calculated 283 mOsm/kg (285-295); Potassium 4.1 mmol/L (3.5-5.1); Sodium 136 mmol/L (136-145); Total Bilirubin 0.4 mg/dL (0.15-1.2)
== END 2022-12-22 23:59 | disposition home or self-care (01) ==
PROVIDERS: Internal Medicine Medical Oncology; PCP Nurse Practitioner Family; Visit Provider Internal Medicine Hematology & Oncology
DX: D45 Polycythemia vera (principal); Z79.82 Long term (current) use of aspirin; Z79.899 Other long term (current) drug therapy; M48.061 Spinal stenosis, lumbar region without neurogenic claudication; C34.12 Malignant neoplasm of upper lobe, left bronchus or lung; Z90.2 Acquired absence of lung [part of]; F17.210 Nicotine dependence, cigarettes, uncomplicated
CPT/HCPCS: 36415; 80053; 85025; 99214

== ENCOUNTER 2023-01-26 08:12 | Oncology outpatient (recurring) (ONCR) | payer MEDICARE, MEDICAID, SELFPAY ==
[2023-01-26 08:20] VITALS: BP 153/79; PULSE 99; RESP 16; TEMP 36.4; O2SAT 98
[2023-01-26 08:26] LABS: Basophils % 0.5 %; Eosinophils # 0.1 10^3/uL (0.0-0.8); Eosinophils % 1.5 %; Hematocrit 45.6 % (37-53); Lymphocytes # 1.8 10^3/uL (0.8-4.8); Lymphocytes % 22.1 %; Mean Corpuscular HGB Conc 35.1 g/dL (30-55); Mean Corpuscular Hemoglobin 35.9 pg (27-33); Mean Corpuscular Volume 102.2 fl (82-101); Mean Platelet Volume 9.7 fL (7.4-10.4); Monocytes # 0.6 10^3/uL (0.2-0.9); Neutrophils # 5.47 10^3/uL (1.8-7.7); Neutrophils % 68.3 %; Nucleated Red Blood Cells % 0 %; Platelet Count 266 10^3/cmm (157-399); Red Blood Count 4.46 10^6/uL (3.85-5.65); Red Cell Distribution Width 15.3 % (12.1-15.1); White Blood Count 8.01 10^3/uL (3.29-11.43)
[2023-01-26 08:52] LABS: Alanine Aminotransferase 19 U/L (0-41); Albumin Level 4.3 g/dL (3.5-5.2); Alkaline Phosphatase 102 U/L (40-130); Anion Gap 14.3 (5-19); Aspartate Amino Transferase 29 U/L (0-40); Blood Urea Nitrogen 21 mg/dL (8-23); Calcium 8.9 mg/dL (8.5-10.5); Carbon Dioxide 24 mmol/L (22-29); Chloride 103 mmol/L (98-107); Ferritin 49 ng/mL (30-400); Globulin 2.9 g/dL (1.3-4.6); Glomerular Filtration Rate 84.4 mL/min (90-130); Glucose 86 mg/dL (65-115); Iron 136 ug/dL (59-158); Osmolality Calculated 286 mOsm/kg (285-295); Percent Saturation 49.2 % (20-50); Potassium 4.3 mmol/L (3.5-5.1); Sodium 137 mmol/L (136-145); Total Bilirubin 0.7 mg/dL (0.15-1.2); Total Iron Binding Capacity 276 mcg/dl; Total Protein 7.2 g/dL (6.6-8.7); Unsaturated Iron Binding 140 ug/dL (112-347)
== END 2023-02-21 23:59 | disposition home or self-care (01) ==
PROVIDERS: Internal Medicine Medical Oncology; PCP Nurse Practitioner Family; Visit Provider Internal Medicine Hematology & Oncology
DX: Z53.9 Procedure and treatment not carried out, unspecified reason (principal); M48.061 Spinal stenosis, lumbar region without neurogenic claudication; M51.16 Intervertebral disc disorders with radiculopathy, lumbar region; M47.816 Spondylosis without myelopathy or radiculopathy, lumbar region; I10 Essential (primary) hypertension; C34.12 Malignant neoplasm of upper lobe, left bronchus or lung; D47.3 Essential (hemorrhagic) thrombocythemia; Z79.899 Other long term (current) drug therapy; D45 Polycythemia vera
CPT/HCPCS: 36415; 80053; 82728; 83540; 83550; 85025; 99205; 99214

== ENCOUNTER → 2023-02-14 12:24 | Outpatient (BNVA) | payer MEDICARE, MEDICAID, SELFPAY | PROVIDERS: PCP Nurse Practitioner Family; Visit Provider Anesthesiology Pain Medicine | DX: M51.16 Intervertebral disc disorders with radiculopathy, lumbar region (principal); M54.2 Cervicalgia | CPT/HCPCS: 64483; 64484; J1030 ==

== ENCOUNTER 2023-02-23 10:59 | Oncology outpatient (recurring) (ONCR) | payer MEDICARE, MEDICAID, SELFPAY ==
[2023-02-23 11:51] VITALS: BP 141/89; PULSE 85; RESP 18; TEMP 36.8; O2SAT 96
[2023-02-23 12:03] LABS: Basophils % 0.5 %; Eosinophils # 0.1 10^3/uL (0.0-0.8); Eosinophils % 1.7 %; Hematocrit 44.1 % (37-53); Lymphocytes # 1.9 10^3/uL (0.8-4.8); Lymphocytes % 23.7 %; Mean Corpuscular HGB Conc 36.1 g/dL (30-55); Mean Corpuscular Hemoglobin 38.1 pg (27-33); Mean Corpuscular Volume 105.8 fl (82-101); Mean Platelet Volume 9.2 fL (7.4-10.4); Monocytes # 0.5 10^3/uL (0.2-0.9); Monocytes % 6.7 %; Neutrophils # 5.21 10^3/uL (1.8-7.7); Neutrophils % 66.6 %; Nucleated Red Blood Cells % 0 %; Platelet Count 251 10^3/cmm (157-399); Red Blood Count 4.17 10^6/uL (3.85-5.65); Red Cell Distribution Width 16.4 % (12.1-15.1); White Blood Count 7.81 10^3/uL (3.29-11.43)
[2023-02-23 12:25] LABS: Alanine Aminotransferase 17 U/L (0-41); Albumin Level 4.5 g/dL (3.5-5.2); Alkaline Phosphatase 96 U/L (40-130); Anion Gap 13.3 (5-19); Aspartate Amino Transferase 15 U/L (0-40); Blood Urea Nitrogen 15 mg/dL (8-23); Calcium 9.2 mg/dL (8.5-10.5); Carbon Dioxide 23 mmol/L (22-29); Chloride 104 mmol/L (98-107); Globulin 2.8 g/dL (1.3-4.6); Glomerular Filtration Rate 112.8 mL/min (90-130); Glucose 108 mg/dL (65-115); Osmolality Calculated 283 mOsm/kg (285-295); Potassium 4.3 mmol/L (3.5-5.1); Sodium 136 mmol/L (136-145); Total Bilirubin 0.6 mg/dL (0.15-1.2); Total Protein 7.3 g/dL (6.6-8.7)
== END 2023-03-23 23:59 | disposition home or self-care (01) ==
PROVIDERS: PCP Nurse Practitioner Family; Visit Provider Internal Medicine Medical Oncology
DX: D45 Polycythemia vera (principal); M48.061 Spinal stenosis, lumbar region without neurogenic claudication; M51.16 Intervertebral disc disorders with radiculopathy, lumbar region; M47.816 Spondylosis without myelopathy or radiculopathy, lumbar region; I10 Essential (primary) hypertension; C34.12 Malignant neoplasm of upper lobe, left bronchus or lung; D47.3 Essential (hemorrhagic) thrombocythemia; Z79.899 Other long term (current) drug therapy
CPT/HCPCS: 36415; 80053; 85025; 99214

== ENCOUNTER 2023-03-30 10:05 | Oncology outpatient (recurring) (ONCR) | payer MEDICARE, MEDICAID, SELFPAY ==
[2023-03-30 10:33] VITALS: BP 121/80; PULSE 68; RESP 18; TEMP 36.1; O2SAT 96
[2023-03-30 10:54] LABS: Basophils % 0.5 %; Eosinophils % 0.7 %; Lymphocytes # 1.4 10^3/uL (0.8-4.8); Lymphocytes % 24.7 %; Mean Corpuscular HGB Conc 36.3 g/dL (30-55); Mean Corpuscular Hemoglobin 41.4 pg (27-33); Mean Corpuscular Volume 113.9 fl (82-101); Mean Platelet Volume 9.3 fL (7.4-10.4); Monocytes # 0.5 10^3/uL (0.2-0.9); Neutrophils # 3.77 10^3/uL (1.8-7.7); Neutrophils % 65.4 %; Nucleated Red Blood Cells % 0 %; Platelet Count 198 10^3/cmm (157-399); Red Cell Distribution Width 16.9 % (12.1-15.1); White Blood Count 5.76 10^3/uL (3.29-11.43)
== END 2023-04-23 23:59 | disposition home or self-care (01) ==
LOC: ONCMED 10:06
PROVIDERS: Nurse Practitioner Family; PCP Nurse Practitioner Family; Visit Provider Internal Medicine Medical Oncology
DX: D45 Polycythemia vera (principal)
CPT/HCPCS: 36415; 85025

== ENCOUNTER 2023-04-27 10:10 | Oncology outpatient (recurring) (ONCR) | payer MEDICARE, MEDICAID, SELFPAY ==
[2023-04-27 10:55] VITALS: BP 136/86; PULSE 71; RESP 16; TEMP 36.7; O2SAT 99
[2023-04-27 11:21] LABS: Basophils % 0.6 %; Eosinophils # 0.1 10^3/uL (0.0-0.8); Hematocrit 39.4 % (37-53); Lymphocytes # 1.6 10^3/uL (0.8-4.8); Lymphocytes % 24.7 %; Mean Corpuscular HGB Conc 36.8 g/dL (30-55); Mean Corpuscular Hemoglobin 41.4 pg (27-33); Mean Corpuscular Volume 112.6 fl (82-101); Mean Platelet Volume 9.5 fL (7.4-10.4); Monocytes # 0.4 10^3/uL (0.2-0.9); Monocytes % 6.4 %; Neutrophils # 4.23 10^3/uL (1.8-7.7); Neutrophils % 65.5 %; Nucleated Red Blood Cells % 0 %; Platelet Count 229 10^3/cmm (157-399); Red Cell Distribution Width 13.6 % (12.1-15.1); White Blood Count 6.45 10^3/uL (3.29-11.43)
[2023-04-27 11:43] LABS: Alanine Aminotransferase 15 U/L (0-41); Albumin Level 4.3 g/dL (3.5-5.2); Alkaline Phosphatase 85 U/L (40-130); Anion Gap 13.1 (5-19); Aspartate Amino Transferase 16 U/L (0-40); Blood Urea Nitrogen 14 mg/dL (8-23); Calcium 8.8 mg/dL (8.5-10.5); Carbon Dioxide 22 mmol/L (22-29); Chloride 105 mmol/L (98-107); Creatinine Clr Calc Pharmacy 91.3331; Globulin 2.8 g/dL (1.3-4.6); Glomerular Filtration Rate 112.5 mL/min (90-130); Glucose 93 mg/dL (65-115); Osmolality Calculated 282 mOsm/kg (285-295); Potassium 4.1 mmol/L (3.5-5.1); Sodium 136 mmol/L (136-145); Total Bilirubin 0.7 mg/dL (0.15-1.2); Total Protein 7.1 g/dL (6.6-8.7)
[2023-04-27 12:14] LABS: Lactate Dehydrogenase 158 U/L (135-225)
== END 2023-05-24 23:59 | disposition home or self-care (01) ==
PROVIDERS: Internal Medicine; Nurse Practitioner Family; PCP Nurse Practitioner Family; Visit Provider Internal Medicine Medical Oncology
DX: D45 Polycythemia vera (principal); C34.12 Malignant neoplasm of upper lobe, left bronchus or lung; Z79.899 Other long term (current) drug therapy
CPT/HCPCS: 36415; 80053; 83615; 85025; 99214

== ENCOUNTER 2023-05-23 14:45 | Outpatient (CLI) | payer MEDICARE, MEDICAID, SELFPAY ==
--- NOTE | 2023-05-23 16:30 | CT_ITS ---
WS: [id number] CT chest w con* [id number] HISTORY: Follow-up lung cancer. TECHNIQUE: Axial imaging performed through the thorax. Coronal and sagittal reformats are submitted. [facility] use at least one of these dose optimization techniques: automated exposure control; mA and/or kV adjustment per patient size (includes targeted exams where dose is mat ched to clinical indication); or iterative reconstruction. CONTRAST: Omnipaque 350; 100 mL IV. DLP: 416.07 mGy.cm COMPARISON: 06/30/2022, 12/21/2021 and PET/CT 03/27/2021. Lungs and central airway: Status post partial LEFT upper lobectomy. Mild pulmonary hyperexpansion. No recurrent mass in the LEFT lung. One of the previously described small micronodules in the RIGHT upp er lobe is increased in size from 4 mm to 7 mm. No additional nodules are increasing in size. Pleura: Normal. No pleural effusion. Heart and pericardium: Normal size heart with no pericardial effusion. Mediastinum and eliud: There is increasing lymphoid tissue at the LEFT hilum with lymph nodes measurin g up to 11 mm. The prior examination was performed without IV contrast which makes comparison for sub tle changes very difficult. As compared to the most recent CT performed with contrast dated 02/24/2021 the lymph nodes appear slightly more prominent. Vessels: Normal size aortic and pulmonary artery. No coronary artery calcifications. Chest wall and lower neck: No soft tissue masses. Upper abdomen: Large stone within the gallbladder. No acute cholecystitis. No adrenal mass. Visualize d liver is negative. Spleen is enlarged at 13.0 cm. Osseous structures: Mild anterior wedging of T4. T4 changes are chronic. Remote healed rib fracture L EFT posterior lateral ninth rib. IMPRESSION: 1. Status post partial LEFT upper lobectomy. 2. Previously described 4 mm RIGHT upper lobe nodule has increased in size to 7 mm. Recommend follow -up chest CT in 3 months. 3. Lymphoid tissue at the LEFT hilar region appears more prominent than on prior examinations althou gh the most recent examination was performed without IV contrast. This can be followed up in [address] with IV contrast. 4. Stable postsurgical changes LEFT lung. 5. Cholelithiasis. 6. Spleen is mildly enlarged at 13 cm. Similar to prior examinations dating back to 07/08/2019.
[2023-05-23] MEDS: iohexol 350 mg/mL 500 mL Btl (per mL) IV (17:01)
== END 2023-05-23 14:46 | disposition home or self-care (01) ==
LOC: RAD 14:46
PROVIDERS: PCP Nurse Practitioner Family; Visit Provider Internal Medicine
DX: C34.12 Malignant neoplasm of upper lobe, left bronchus or lung (principal); K80.20 Calculus of gallbladder without cholecystitis without obstruction
CPT/HCPCS: 71260; Q9967

== ENCOUNTER 2023-05-25 09:46 | Oncology outpatient (recurring) (ONCR) | payer MEDICARE, MEDICAID, SELFPAY ==
[2023-05-25 10:27] LABS: Basophils % 0.3 %; Eosinophils # 0.1 10^3/uL (0.0-0.8); Eosinophils % 1.6 %; Lymphocytes # 1.6 10^3/uL (0.8-4.8); Lymphocytes % 20.6 %; Mean Corpuscular HGB Conc 37.3 g/dL (30-55); Mean Corpuscular Hemoglobin 42.6 pg (27-33); Mean Corpuscular Volume 114.3 fl (82-101); Mean Platelet Volume 9.7 fL (7.4-10.4); Monocytes # 0.6 10^3/uL (0.2-0.9); Monocytes % 7.4 %; Neutrophils % 69.1 %; Nucleated Red Blood Cells % 0 %; Platelet Count 290 10^3/cmm (157-399); Red Cell Distribution Width 11.9 % (12.1-15.1); White Blood Count 7.67 10^3/uL (3.29-11.43)
[2023-05-25 10:59] LABS: Alanine Aminotransferase 13 U/L (0-41); Albumin Level 4.2 g/dL (3.5-5.2); Alkaline Phosphatase 87 U/L (40-130); Anion Gap 15.3 (5-19); Aspartate Amino Transferase 14 U/L (0-40); Blood Urea Nitrogen 14 mg/dL (8-23); Carbon Dioxide 23 mmol/L (22-29); Chloride 103 mmol/L (98-107); Creatinine Clr Calc Pharmacy 91.3331; Globulin 2.9 g/dL (1.3-4.6); Glomerular Filtration Rate 96.4 mL/min (90-130); Glucose 85 mg/dL (65-115); Osmolality Calculated 284 mOsm/kg (285-295); Potassium 4.3 mmol/L (3.5-5.1); Sodium 137 mmol/L (136-145); Total Bilirubin 0.5 mg/dL (0.15-1.2); Total Protein 7.1 g/dL (6.6-8.7)
== END 2023-06-22 23:59 | disposition home or self-care (01) ==
PROVIDERS: PCP Nurse Practitioner Family; Visit Provider Internal Medicine
DX: D45 Polycythemia vera (principal); Z85.118 Personal history of other malignant neoplasm of bronchus and lung; Z79.899 Other long term (current) drug therapy; Z79.64 Long term (current) use of myelosuppressive agent; F17.210 Nicotine dependence, cigarettes, uncomplicated; Z90.2 Acquired absence of lung [part of]
CPT/HCPCS: 36415; 80053; 85025; 99214

== ENCOUNTER → 2023-05-30 13:10 | Outpatient (BNVA) | payer MEDICARE, MEDICAID, SELFPAY | PROVIDERS: PCP Nurse Practitioner Family; Visit Provider Internal Medicine Pulmonary Disease | DX: J82.83 Eosinophilic asthma (principal); J43.2 Centrilobular emphysema; Z71.6 Tobacco abuse counseling; C34.12 Malignant neoplasm of upper lobe, left bronchus or lung; M79.2 Neuralgia and neuritis, unspecified; T78.40XA Allergy, unspecified, initial encounter; X58.XXXA Exposure to other specified factors, initial encounter; F17.210 Nicotine dependence, cigarettes, uncomplicated; Z98.890 Other specified postprocedural states; Z85.828 Personal history of other malignant neoplasm of skin; J34.89 Other specified disorders of nose and nasal sinuses; R91.1 Solitary pulmonary nodule | CPT/HCPCS: 99214 ==

== ENCOUNTER 2023-06-06 13:21 | Outpatient (CLI) | payer MEDICARE, MEDICAID, SELFPAY ==
--- NOTE | 2023-06-06 14:00 | PETR_ITS ---
PROCEDURE INFORMATION: Exam: PET/CT Skull Base to Mid-thigh Exam date and time: 06/06/2023 2:08 PM Age: 68 years old Clinical indication: Abnormal findings; Previously described 4 mm right upper lobe nodule has increased in size to 7 mm. Recommend. Follow-up chest CT in 3 months. 3. Lymphoid tissue at the left hilar region appears more prominent than on prior examinations. Although the most recent examination was performed without iv contrast. This can be followed up in 3. Months by chest CT with iv contrast. Prior surgery; Surgery date: 6+ months; Surgery type: Left lung; Additional info: Lung lesion LABS AND CLINICAL REPORTS: Glucose: 86 mg/dl Treatment strategy for malignancy (PET staging): Initial Staging (PI) TECHNIQUE: Imaging protocol: Following at least four-hour fasting and following the injection of radiopharmaceutical, low dose CT images were obtained. Then, PET images were obtained. Attenuation corrected images were constructed using the CT scan. Fused images of PET and CT were reviewed. The standardized uptake values (SUV) reported below are maximum values within a region of interest, expressed in gm/ml. Exam includes orbital meatal line to mid-thigh. Radiopharmaceutical: 12.75 mCi F-18 FDG (Fluorodeoxyglucose), IV. Time of imaging post radiopharmaceutical administration: 1 hour Injection site: Right wrist COMPARISON: CT chest 05/23/2023 and 07/08/2019, PET CT 03/27/2021 FINDINGS: Brain: Visualized brain has normal physiologic uptake. Pharynx: No abnormal uptake. Larynx: No abnormal uptake. Lungs, pleura and trachea: No abnormal uptake. 7 mm right upper lobe nodule on axial image 86 is not FDG avid (1 SUV). There is a scar of wedge resection in the lingula. No pleural effusion. Heart: Normal physiologic uptake. There is no cardiomegaly. There is no pericardial effusion. Mediastinal space: No abnormal uptake. Liver: No abnormal uptake. Gallbladder and bile ducts: No abnormal uptake. Stable 1.9 cm calcified gallstone in the gallbladder. Pancreas: No abnormal uptake. Spleen: No abnormal uptake. Stable mild splenomegaly (13.6 cm). Adrenal glands: No abnormal uptake. No nodules. Kidneys and ureters: Normal physiologic uptake. No hydronephrosis. Stomach and bowel: No abnormal uptake. Intraperitoneal and retroperitoneal spaces: No abnormal uptake. No ascites. Bladder: Normal physiologic uptake. Reproductive: No abnormal uptake. Enlarged prostate. Vasculature: No abnormal uptake. Lymph nodes: No abnormal uptake. No lymphadenopathy in the head, neck, chest, abdomen, pelvis, and extremities. Bones/joints: No abnormal uptake in the visualized axial and appendicular skeleton. Soft tissues: No abnormal uptake in the visualized head, neck, chest, abdomen, pelvis, and extremities. PET[facility]IT[facility] [id number] IMPRESSION: No abnormal uptake. Specifically, no abnormal uptake within 7 mm right upper lobe nodule and in the left hilum, the areas of concern on the prior CT chest on 05/23/2023.
== END 2023-06-06 13:22 | disposition home or self-care (01) ==
LOC: RAD 13:21
PROVIDERS: PCP Nurse Practitioner Family; Visit Provider Internal Medicine Pulmonary Disease
DX: R91.1 Solitary pulmonary nodule (principal)
CPT/HCPCS: 78815; A9552

== ENCOUNTER → 2023-06-19 13:25 | Outpatient (BNVA) | payer MEDICARE, MEDICAID, SELFPAY | PROVIDERS: PCP Nurse Practitioner Family; Visit Provider Nurse Practitioner Family | DX: D48.5 Neoplasm of uncertain behavior of skin (principal); L57.0 Actinic keratosis | CPT/HCPCS: 11102; 17004; 69100; 99204 ==

== ENCOUNTER → 2023-07-17 08:16 | Outpatient (BNVA) | payer MEDICARE, MEDICAID, SELFPAY | PROVIDERS: PCP Nurse Practitioner Family; Visit Provider Dermatology | DX: C44.212 Basal cell carcinoma of skin of right ear and external auricular canal (principal); C44.311 Basal cell carcinoma of skin of nose | CPT/HCPCS: 14060; 17311 ==

== ENCOUNTER → 2023-07-25 08:03 | Outpatient (BNVA) | payer MEDICARE, MEDICAID, SELFPAY | PROVIDERS: PCP Nurse Practitioner Family; Visit Provider Dermatology | DX: C44.41 Basal cell carcinoma of skin of scalp and neck (principal) | CPT/HCPCS: 13121; 13132; 17311; 17313 ==

== ENCOUNTER → 2023-07-28 08:01 | Outpatient (BNVA) | payer MEDICARE, MEDICAID, SELFPAY | PROVIDERS: PCP Nurse Practitioner Family; Visit Provider Dermatology | DX: Z48.02 Encounter for removal of sutures (principal) | CPT/HCPCS: 99212 ==

== ENCOUNTER → 2023-08-07 08:07 | Outpatient (BNVA) | payer MEDICARE, MEDICAID, SELFPAY | PROVIDERS: PCP Nurse Practitioner Family; Visit Provider Dermatology | DX: L72.0 Epidermal cyst (principal); Z48.02 Encounter for removal of sutures | CPT/HCPCS: 99214 ==

== ENCOUNTER 2023-08-16 10:59 | Oncology outpatient (recurring) (ONCR) | payer MEDICARE, MEDICAID, SELFPAY ==
[2023-08-16 12:06] LABS: Basophils % 0.4 %; Eosinophils # 0.2 10^3/uL (0.0-0.8); Eosinophils % 2.3 %; Hematocrit 43.9 % (37-53); Lymphocytes # 1.4 10^3/uL (0.8-4.8); Lymphocytes % 19.6 %; Mean Corpuscular HGB Conc 35.8 g/dL (30-55); Mean Corpuscular Hemoglobin 38.2 pg (27-33); Mean Corpuscular Volume 106.8 fl (82-101); Mean Platelet Volume 9.5 fL (7.4-10.4); Monocytes # 0.5 10^3/uL (0.2-0.9); Monocytes % 6.2 %; Neutrophils # 5.19 10^3/uL (1.8-7.7); Nucleated Red Blood Cells % 0 %; Platelet Count 301 10^3/cmm (157-399); Red Blood Count 4.11 10^6/uL (3.85-5.65); Red Cell Distribution Width 12.2 % (12.1-15.1); White Blood Count 7.31 10^3/uL (3.29-11.43)
[2023-08-16 12:34] LABS: Alanine Aminotransferase 17 U/L (0-41); Albumin Level 4.2 g/dL (3.5-5.2); Alkaline Phosphatase 105 U/L (40-130); Aspartate Amino Transferase 18 U/L (0-40); Blood Urea Nitrogen 14 mg/dL (8-23); Calcium 8.8 mg/dL (8.5-10.5); Carbon Dioxide 21 mmol/L (22-29); Chloride 104 mmol/L (98-107); Globulin 3.2 g/dL (1.3-4.6); Glomerular Filtration Rate 96.4 mL/min (90-130); Glucose 136 mg/dL (65-115); Lactate Dehydrogenase 161 U/L (135-225); Osmolality Calculated 289 mOsm/kg (285-295); Sodium 138 mmol/L (136-145); Thyroid Stimulating Hormone 1.18 uIU/mL (0.27-4.20); Total Bilirubin 0.4 mg/dL (0.15-1.2); Total Protein 7.4 g/dL (6.6-8.7)
--- NOTE | 2023-08-17 08:35 | N.ONRAD NP_ITS ---
Radiation Oncology New Patient Visit Patient: Fransisco Denis MR#: [id number] : 1955> Age: 68> Sex: Male> Dictated by: Dr. Felictiy Aparicio Date of Service: 08/16/2023 Referring Physician(s) : Dr. Royce Elmore Diagnosis: Basal cell carcinoma of the nose D45 - polycythemia vera, Diagnosed 01/17/2019 (active) and D72.829 - elevated white blood cell count, unspecified, Diagnosed 11/07/2016 (active). Radiotherapy to date: Summary > No prior radiation therapy. Chief Complaint / History of Present Illness: Patient is seen today at the request of medical oncology. He was on their schedule that with his current diagnosis of basal cell carcinoma of the skin his referral was actually to radiation oncology. He recounts how he has had basal cells for many years. 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 He is fair complected with blue eyes and had bleach blond hair. He has had multiple skin cancers all mostly basal cell and 1 small melanoma many years ago. He is also had a squamous of carcinoma of the lung for which she underwent surgery 3 years ago. On July 24 of this year he underwent a Mohs procedure of the basal cell carcinoma on the lateral aspect of his nose on the right. He said that the surgery resulted in a hole and the margins were still not clear. A plug was then taken from his neck and inserted into the hole. This was described as a free flap graft. He is seen today in consultation to discuss treatment after a failed most procedure. The pathology did show that it was a basal cell carcinoma. Current Medications: cyclobenzaprine 10 mg PO TID PRN, fluticasone propion-salmeterol 115-21 mcg/actuation (Advair HFA) 2 puffs inhalation BID, hydroxyurea (Hydrea) 500 mg PO DAILY, ibuprofen 200 mg X 4 (800) orally three times daily; [Marijuana sleep aid and appetite]. Allergies: No Known Allergies Medical History: Chronic obstructive pulmonary disease, hepatitis C. No history of collagen vascular disease. No previous radiation therapy. Surgical History: Appendectomy in 1963, broken neck in 2003, covid vaccine #1 in 10/2020, covid vaccine #2 in 11/2020, excision of skin cancer in 2015 (back, face, and shoulder) and shoulder repair in 1996. Family History: Father is at age 67 having experienced lung cancer with metastasis. Mother is at age 77 having experienced osteoporosis, and COPD. Brother is alive having experienced polycythemia vera. Brother is alive having experienced osteoporosis. Sister is at age 30. Social History: Last screened on 08/19/2021 - Yes - but has quit for 2 years. Smoked 0.5 packs/day for 42 years (21 pack years). Last screened on 08/19/2021 - Never drank. Patient indicated access to the following support systems: lives in own house and adequate transportation available for expected visits. Patient indicated the following nutritional habits: regular meals. Patient indicated participation in the following forms of activity: daily activities. Current Complaints / Review of Systems: . Vital Signs: Performed on 08/16/2023 1:46 PM BMI - 25.97 kg/m2 (high), Height - 68 in, Weight - 170.8 lbs, Temperature - 98.2 f, Pulse - 82 /min, Respiration - 17 /min, O2 Sat - 97 %, Pain - 0, Fatigue - 0 and BP - 142/ 84 mm(hg)(high/). Physical Exam: General: Patient is in no apparent distress. He is alone today HEENT: Normocephalic atraumatic. Pupils are equal, sclera clear, extraocular muscles intact. His skin is very pink and places. He has chronic sun exposure changes across his face. He also has a raised crusted scab like area on the bridge of his nose on the right which measures approximately a centimeter by 8 mm. Lungs: Respiratory rate is regular nonlabored Cardiovascular: Regular rate and rhythm Abdomen: Patient has minimal adipose tissue in his abdomen is flat and nondistended Extremities: Without obvious edema or lymphedema Skin: The skin across his arms and shoulders show multiple areas where he has had surgery on his shoulders. The skin across his forearms shows chronic skin exposure changes with hyperpigmentation and dry areas. Neurological: Alert and orient x 3. Gait speech within normal limits Psych: Affect appropriate for current situation Performance Status: 100 Pathology: Basal cell carcinoma of the skin primary, d45 - polycythemia vera, Diagnosed 01/17/2019 (active) , Primary, d72.829 - elevated white blood cell count, unspecified, Diagnosed 11/07/2016 (active) and Secondary, b19.20 - unspecified viral hepatitis c without hepatic coma, Diagnosed 04/24/1799 (active) . Lab: Imaging: See HPI Impression: Basal cell carcinoma of the skin on his nose with failed Mohs attempt. Plan: I reviewed with Mr. Denis the role of radiation and skin cancer. We talked about how typically radiation is used when skin cancers around the eyes the nose around the mouth. It has an extremely high cure rate and allows the patient to maintain the flexibility of those tissues and not have any surgical defects. We talked about how the postoperatively this area will not heal because there is still cancer in the wound. He understands that he will more than likely have a surgical defect in a hole through that bridge of his nose. [place] does [place] over 100 [place] away. We talked about the different regimens we have for skin cancer. All of these have been tested and tried for at least 75 years. We discussed the simulation process. We reviewed the daily treatment regiment. Which at this point I have suggested we do a 3-day week treatment because of the work schedule and how far he lives away. Plan would be initially based on the final simulation but I guesstimated between 4 and 5 weeks of treatment. We talked about the risks and side effects both acute and long-term. At this point he is agreed to proceed. He will undergo simulation in the next week or so and will start his treatments shortly thereafter. At the completion of my encounter he had no additional questions or concerns. Signed by: 08/17/2023 8:33:23 AM <<Signature on File>> Time spent with patient:40 CPT Code: CPT Code:
== END 2023-08-22 23:59 | disposition home or self-care (01) ==
PROVIDERS: PCP Nurse Practitioner Family; Visit Provider Internal Medicine
DX: D45 Polycythemia vera (principal); Z85.118 Personal history of other malignant neoplasm of bronchus and lung; Z79.899 Other long term (current) drug therapy; Z79.64 Long term (current) use of myelosuppressive agent; F17.210 Nicotine dependence, cigarettes, uncomplicated; Z90.2 Acquired absence of lung [part of]
CPT/HCPCS: 36415; 80053; 83615; 84443; 85025; 99214

== ENCOUNTER → 2023-08-21 12:49 | Outpatient (BNVA) | payer MEDICARE, MEDICAID, SELFPAY | PROVIDERS: PCP Nurse Practitioner Family; Visit Provider Dermatology | DX: L72.0 Epidermal cyst (principal); C44.319 Basal cell carcinoma of skin of other parts of face; Z85.828 Personal history of other malignant neoplasm of skin | CPT/HCPCS: 99213 ==

== ENCOUNTER 2023-09-19 09:04 | Oncology outpatient (recurring) (ONCR) | payer MEDICARE, MEDICAID, SELFPAY ==
--- NOTE | 2023-09-05 23:23 | ONCRAD TMN_ITS ---
Radiation Oncology Weekly Treatment Management Patient: Cira Smith MR#: [id number] : 1955> Attending Physician: Goldy Potts Date of Service: 09/04/2023 Referring Physician(s) : Dr. Royce Elmore Diagnosis: C44.311 - Basal cell carcinoma of skin of nose, Diagnosed 08/16/2023 (Active) D45 - Polycythemia vera, Diagnosed 01/17/2019 (Active) D72.829 - Elevated white blood cell count, unspecified, Diagnosed 11/07/2016 (Active) Radiotherapy to date: Course: Nose 2023, Treatment Site: Nose 6E bolus, Ref. ID: [id number], Energy: 6E, Dose/Fx (cGy): 300, #Fx: , Dose Correction (cGy): 0, Total Dose Delivered (cGy): 300, Start Date: 09/04/2023, Elapsed Days: 0 Reason for visit: The patient is being seen today as part of their regularly scheduled weekly on treatment visits to assess for acute toxicities from radiotherapy. Review of Systems: No symptoms. Using topical ATB cream on nose as directed by dermatology Vital Signs: Performed on 09/04/2023 1:58 PM BMI - 25.849 kg/m2 (high), Height - 68 in, Weight - 170 lbs, Temperature - 98.7 f, Pulse - 75 /min, Respiration - 17 /min, O2 Sat - 98 %, Pain - 7, Fatigue - 0 and BP - 141/ 91 mm(hg)(high). Physical Exam: Imaging: Radiation therapy imaging related to accurate target localization (i.e. KV, MV and CBCT) was reviewed. Appropriate changes, if any, were made to ensure treatment accuracy. Plan: Good tolerance of treatment. Continue as planned. 10 minutes were spent with patient and in charting. Signed by: Goldy Potts 09/05/2023 11:22:38 PM Telemedicine Consent Patient seen today via Telemedicine by agreement and consent of patient. Telemedicine technology used during the visit include audio and, as available, review of images. This patient encounter is appropriate and reasonable under the circumstances given the patient???s particular presentation at this time. The patient has been advised of the potential risks and limitations of this mode of treatment (including but not limited to the absence of in-person examination) and has agreed to be treated in a remote fashion in spite of them. Any and all of the patient???s/patient???s family???s questions on this issue have been answered and I have made no promises or guarantees to the patient. The patient has also been advised to contact this office for worsening conditions or problems, and seek emergency medical treatment and/or call 911 if the patient deems either necessary.
--- NOTE | 2023-09-12 09:39 | ONCRAD TMN_ITS ---
Radiation Oncology Weekly Treatment Management Patient: Fransisco Denis MR#: [id number] : 1955 Attending Physician: Dr. Felicity Aparicio Date of Service: 09/12/2023 Fractions: 7 of 15 today Referring Physician(s) : Dr. Royce Elmore Diagnosis: C44.311 - Basal cell carcinoma of skin of nose, Diagnosed 08/16/2023 (Active) D45 - Polycythemia vera, Diagnosed 01/17/2019 (Active) D72.829 - Elevated white blood cell count, unspecified, Diagnosed 11/07/2016 (Active) Radiotherapy to date: Course: Nose 2023, Treatment Site: Nose 6E bolus, Ref. ID: [id number], Energy: 6E, Dose/Fx (cGy): 300, #Fx: , Dose Correction (cGy): 0, Total Dose Delivered (cGy): 2,100, Start Date: 09/04/2023, Elapsed Days: 8 Reason for visit: The patient is being seen today as part of their regularly scheduled weekly on treatment visits to assess for acute toxicities from radiotherapy. Review of Systems: Patient had noticed that ever since his surgery he had had a crawling sensation over the bridge of his nose. He is also noticed over the last 2 days that he has had some eye pain that started right after the treatment. He is actually began to notice that as we talked. Vital Signs: Performed on 09/12/2023 9:00 AM BMI - 25.666 kg/m2 (high), Height - 68 in, Weight - 168.8 lbs, Temperature - 97.7 f, Pulse - 72 /min, Respiration - 18 /min, O2 Sat - 98 %, Pain - 0, Fatigue - 5 and BP - 140/ 76 mm(hg). Physical Exam: On examination his skin is mildly erythematous and dry Imaging: Radiation therapy imaging related to accurate target localization (i.e. KV, MV and CBCT) was reviewed. Appropriate changes, if any, were made to ensure treatment accuracy. Plan: Will continue with his treatments as planned I encouraged him to take additional ibuprofen or Tylenol if he finds that the eye pain is worsening. He says it does not last very long and he does not really need anything for it at this point in time. Signed by: Dr. Felicity Aparicio 09/12/2023 9:38:03 AM
--- NOTE | 2023-09-19 09:25 | ONCRAD TMN_ITS ---
Radiation Oncology Weekly Treatment Management Patient: Fransisco Denis MR#: [id number] : 1955 Attending Physician: Dr. Felicity Aparicio Date of Service: 09/19/2023 Fractions: 10 out of 15 Referring Physician(s) : Dr. Royce Elmore Diagnosis: C44.311 - Basal cell carcinoma of skin of nose, Diagnosed 08/16/2023 (Active) D45 - Polycythemia vera, Diagnosed 01/17/2019 (Active) D72.829 - Elevated white blood cell count, unspecified, Diagnosed 11/07/2016 (Active) Radiotherapy to date: Course: Nose 2023, Treatment Site: Nose 6E bolus, Ref. ID: [id number], Energy: 6E, Dose/Fx (cGy): 300, #Fx: , Dose Correction (cGy): 0, Total Dose Delivered (cGy): 3,000, Start Date: 09/04/2023, Elapsed Days: 11 Reason for visit: The patient is being seen today as part of their regularly scheduled weekly on treatment visits to assess for acute toxicities from radiotherapy. Review of Systems: Patient skin has become very erythematous. The area where his cancer was previously has become dry and crusty. He is also had quite a bit of problems with drainage from his right eye with eye being matted shut in the morning. Vital Signs: Performed on 09/19/2023 9:10 AM BMI - 25.697 kg/m2 (high), Height - 68 in, Weight - 169 lbs, Temperature - 96.9 f, Pulse - 65 /min, Respiration - 16 /min, O2 Sat - 98 %, Pain - 7, Fatigue - 5 and BP - 148/ 94 mm(hg)(high). Physical Exam: On examination his skin is erythematous across his cheek and around his eye and across the opposite cheek as well as the bridge of the nose. Imaging: Radiation therapy imaging related to accurate target localization (i.e. KV, MV and CBCT) was reviewed. Appropriate changes, if any, were made to ensure treatment accuracy. Plan: We talked about at this point how he is having a very brisk reaction. I recommended to him that we take a week off and during that time he used Silvadene cream to try and get the reaction calm down. We can then meet again next week and decide if we want to do additional treatment or if 10 treatments has been is limited. He was in agreement with this. Will see him next week on Monday. Signed by: Dr. Felicity Aparicio 09/19/2023 9:23:09 AM
== END 2023-09-22 23:59 | disposition home or self-care (01) ==
PROVIDERS: Absent Provider Internal Medicine; PCP Nurse Practitioner Family; Visit Provider Radiology Radiation Oncology
DX: D45 Polycythemia vera (principal); Z85.118 Personal history of other malignant neoplasm of bronchus and lung; Z79.899 Other long term (current) drug therapy; Z79.64 Long term (current) use of myelosuppressive agent; F17.210 Nicotine dependence, cigarettes, uncomplicated; Z90.2 Acquired absence of lung [part of]
CPT/HCPCS: 77290; 77295; 77300; 77334; 77336; 77412; 99024; 99214

== ENCOUNTER 2023-09-26 13:19 | Oncology outpatient (recurring) (ONCR) | payer MEDICARE, MEDICAID, SELFPAY ==
--- NOTE | 2023-09-27 09:39 | ONCRAD TMN_ITS ---
Radiation Oncology Weekly Treatment Management Patient: Cira Smith MR#: [id number] : 1955> Attending Physician: Dr. Felicity Aparicio Date of Service: 09/26/2023 Fractions: 10 out of 15 Referring Physician(s) : Dr. Royce Elmore Diagnosis: C44.311 - Basal cell carcinoma of skin of nose, Diagnosed 08/16/2023 (Active) D45 - Polycythemia vera, Diagnosed 01/17/2019 (Active) D72.829 - Elevated white blood cell count, unspecified, Diagnosed 11/07/2016 (Active) Radiotherapy to date: Course: Nose 2023, Treatment Site: Nose 6E bolus, Ref. ID: [id number], Energy: 6E, Dose/Fx (cGy): 300, #Fx: , Dose Correction (cGy): 0, Total Dose Delivered (cGy): 3,000, Start Date: 09/04/2023, Elapsed Days: 11 Reason for visit: The patient is being seen today as part of their regularly scheduled weekly on treatment visits to assess for acute toxicities from radiotherapy. Review of Systems: Patient continues to have drainage from his eye which becomes matted. He still has conjunctivitis. The skin across his nose has become dry and peeling. He also has noticed some drainage from the graft area Vital Signs: Performed on 09/26/2023 1:41 PM BMI - 25.605 kg/m2 (high), Height - 68 in, Weight - 168.4 lbs, Temperature - 97.7 f, Pulse - 76 /min, Respiration - 18 /min, O2 Sat - 96 %, Pain - 4, Fatigue - 0 and BP - 150/ 86 mm(hg)(high/). Physical Exam: On exam his skin is erythematous and dry. Conjunctival is injected Imaging: Radiation therapy imaging related to accurate target localization (i.e. KV, MV and CBCT) was reviewed. Appropriate changes, if any, were made to ensure treatment accuracy. Plan: We talked about at this point how we would not do any additional treatment. I have asked him to continue to use the Silvadene on the skin. I have sent eyedrops for him to use for the conjunctivitis. As well as a antibiotic to cover for any problems with infection in terms of the skin graft. At this point we will see him back in 2 weeks or call if any problems arise in the interim Signed by: Dr. Felicity Aparicio 09/27/2023 9:38:06 AM
== END 2023-10-22 23:59 | disposition home or self-care (01) ==
PROVIDERS: Absent Provider Internal Medicine; PCP Nurse Practitioner Family; Visit Provider Radiology Radiation Oncology
DX: D45 Polycythemia vera (principal); Z85.118 Personal history of other malignant neoplasm of bronchus and lung; Z79.899 Other long term (current) drug therapy; Z79.64 Long term (current) use of myelosuppressive agent; F17.210 Nicotine dependence, cigarettes, uncomplicated; Z90.2 Acquired absence of lung [part of]; C44.311 Basal cell carcinoma of skin of nose; L59.8 Other specified disorders of the skin and subcutaneous tissue related to radiation; Z51.0 Encounter for antineoplastic radiation therapy; H57.10 Ocular pain, unspecified eye
CPT/HCPCS: 99214

== ENCOUNTER 2023-10-04 10:06 | Outpatient (CLI) | payer MEDICARE, MEDICAID, SELFPAY ==
--- NOTE | 2023-10-04 10:30 | CT_ITS ---
WS: [id number] CT CHEST TECHNIQUE: Noncontrast CT of the chest with coronal and sagittal reformatted images. CLINICAL INFORMATION: RUL f/u COMPARISON: CT chest 05/23/2023. PET/CT 06/06/2023 DLP: 399.[address] scans at [facility] use at least one of these dose optimization techniques: automated e xposure control; mA and/or kV adjustment per patient size (includes targeted exams where dose is matc hed to clinical indication); or iterative reconstruction. FINDINGS: Moderate chronic emphysematous changes. No acute pulmonary infiltrates. Subpleural nodule R IGHT lower lobe unchanged measuring 5 mm slightly increased in size. Prior postoperative changes partial LEFT upper lobectomy. Previously described 7 mm nodule RIGHT uppe r lobe appears partially calcified today. This is unchanged. Bronchovascular thickening along the LEF T hilum is stable in appearance. No evidence of progression. Normal caliber thoracic aorta. No axilla ry lymphadenopathy. No mediastinal or hilar lymphadenopathy. Prominent laminated gallstone in the gallbladder unchanged. Gallstone measures 1.7 cm. Adrenal glands are normal. Fatty atrophy of the pancreas. Chronic anterior wedging in the upper thoracic spine unchanged. CT/CT chest wo con [id number] IMPRESSION: 1. 7 mm nodule RIGHT upper lobe appears partially calcified today and is uncha nged. Recommend continued surveillance. 2. Tiny 5 mm subpleural nodule RIGHT lower lobe appears progressed compared to previous. Recommend 6-month follow-up. 3. Cholelithiasis unchanged. 4. Prior postoperative changes partial LEFT upper lobectomy. 5. No other acute findings.
== END 2023-10-04 10:07 | disposition home or self-care (01) ==
LOC: RAD 10:08
PROVIDERS: PCP Nurse Practitioner Family; Visit Provider Internal Medicine Pulmonary Disease
DX: R91.8 Other nonspecific abnormal finding of lung field (principal); K80.20 Calculus of gallbladder without cholecystitis without obstruction; K86.89 Other specified diseases of pancreas; Z90.2 Acquired absence of lung [part of]; J43.9 Emphysema, unspecified
CPT/HCPCS: 71250

== ENCOUNTER 2023-12-11 10:05 | Oncology outpatient (recurring) (ONCR) | payer MEDICARE, MEDICAID, SELFPAY ==
[2023-12-11 10:37] LABS: Basophils # 0.1 10^3/uL (0.0-0.1); Basophils % 0.7 %; Eosinophils # 0.1 10^3/uL (0.0-0.8); Hematocrit 42.5 % (37-53); Lymphocytes # 1.4 10^3/uL (0.8-4.8); Lymphocytes % 19.7 %; Mean Corpuscular HGB Conc 36.2 g/dL (30-55); Mean Corpuscular Hemoglobin 39.3 pg (27-33); Mean Corpuscular Volume 108.4 fl (82-101); Mean Platelet Volume 9.2 fL (7.4-10.4); Monocytes # 0.4 10^3/uL (0.2-0.9); Monocytes % 5.7 %; Neutrophils % 71.2 %; Nucleated Red Blood Cells % 0 %; Platelet Count 248 10^3/cmm (157-399); Red Blood Count 3.92 10^6/uL (3.85-5.65); Red Cell Distribution Width 13.9 % (12.1-15.1); White Blood Count 7.02 10^3/uL (3.29-11.43)
[2023-12-11 11:19] LABS: Alanine Aminotransferase 18 U/L (0-41); Albumin Level 4.3 g/dL (3.5-5.2); Alkaline Phosphatase 89 U/L (40-130); Anion Gap 18.3 (5-19); Aspartate Amino Transferase 17 U/L (0-40); Blood Urea Nitrogen 16 mg/dL (8-23); Calcium 8.7 mg/dL (8.5-10.5); Carbon Dioxide 21 mmol/L (22-29); Chloride 106 mmol/L (98-107); Globulin 2.7 g/dL (1.3-4.6); Glomerular Filtration Rate 84.2 mL/min (90-130); Glucose 100 mg/dL (65-115); Lactate Dehydrogenase 164 U/L (135-225); Osmolality Calculated 293 mOsm/kg (285-295); Potassium 4.3 mmol/L (3.5-5.1); Sodium 141 mmol/L (136-145); Thyroid Stimulating Hormone 1.15 uIU/mL (0.27-4.20); Total Bilirubin 0.5 mg/dL (0.15-1.2)
== END 2023-12-23 18:00 | disposition home or self-care (01) ==
PROVIDERS: Internal Medicine Hematology & Oncology; Absent Provider Internal Medicine Medical Oncology; PCP Nurse Practitioner Family; Visit Provider Radiology Radiation Oncology
DX: D45 Polycythemia vera (principal); Z85.118 Personal history of other malignant neoplasm of bronchus and lung; R91.1 Solitary pulmonary nodule; Z85.828 Personal history of other malignant neoplasm of skin; F17.210 Nicotine dependence, cigarettes, uncomplicated; Z79.899 Other long term (current) drug therapy; Z79.64 Long term (current) use of myelosuppressive agent; Z90.2 Acquired absence of lung [part of]
CPT/HCPCS: 36415; 80053; 83615; 84443; 85025; 99214

== ENCOUNTER 2023-12-21 16:20 | Emergency (ER) | payer MEDICARE, MEDICAID, SELFPAY ==
[2023-12-21 16:25] VITALS: BP 157/98; PULSE 83; RESP 18; TEMP 36.7; O2SAT 98
--- NOTE | 2023-12-21 16:40 | USR_ITS ---
PROCEDURE INFORMATION: Exam: US Scrotum Exam date and time: 12/21/2023 4:54 PM Age: 68 years old Clinical indication: Scrotum pain; Additional info: Testicle pain TECHNIQUE: Imaging protocol: Real-time ultrasound of the scrotum and contents with color Doppler and image documentation. COMPARISON: PT PET skull to thigh INIT [id number] 06/06/2023 2:08 PM FINDINGS: Right testicle: Normal. No mass. Normal color Doppler and arterial waveforms. No torsion. Left testicle: Normal. No mass. Normal color Doppler and arterial waveforms. No torsion. Epididymides: There is a right-sided epididymal cyst measuring 1.4 cm in diameter. There is a 2.1 cm epididymal cyst on the left. Scrotum/soft tissues: Normal. No hydroceles. US/US scrotum [id number] IMPRESSION: Bilateral epididymal cysts
--- NOTE | 2023-12-21 17:20 | ED_ITS ---
HPI - Male Genitourinary 2 General: Chief complaint: Urogenital-Male Stated complaint: pelvic pain Time Seen by Provider: 12/21/23 16:55 History of Present Illness: 68-year-old male presents emergency room complaining of right testicular pain for the last 4 days no trauma no swelling no dysuria urgency or frequency no previous injury or surgery to the testicle. No penile drainage. No hematuria Associated symptoms: Deny dysuria Related Data Home Medications Medication Instructions Recorded Confirmed ibuprofen 200 mg capsule See Rx Instructions PO TID 12/20/22 12/11/23 Marijuana PO 02/23/23 12/11/23 Previous Rx's Medication Instructions Recorded fluticasone propionate 115 2 puff inhalation BID #12 grams 05/29/23 mcg-salmeterol 21 mcg/actuation HFA inhaler (Advair HFA) hydroxyurea 500 mg capsule See Rx Instructions .Route 11/23/23 .COMPLEX #60 caps escitalopram oxalate 10 mg tablet 10 mg PO DAILY #30 tabs 12/11/23 diclofenac sodium 75 mg 75 mg PO Q12H PRN pain #20 tabs 12/21/23 tablet,delayed release hydrocodone 5 mg-acetaminophen 325 1 tab PO Q6H PRN pain #10 tabs 12/21/23 mg tablet Allergies Allergy/AdvReac Type Severity Reaction Status Date / Time doxycycline Allergy Mild ADR-Abdominal Verified 12/11/23 11:48 Pain Review of Systems 2 Const: Denies: fever(s) or chills Card: Denies: chest pain Resp: Denies: dyspnea GI: Denies: abdominal pain : Denies: dysuria, urinary frequency or urinary urgency Musc: Denies: neck pain or back pain Skin/Breast: Denies: rash PFSH ED 2 PFSH: Medical History Polycythemia Skin lesion Hyperlipidemia History of basal cell carcinoma (BCC) Surgical History H/O local excision of skin lesion (11/25/21) left side of neck Port-A-Cath in place (11/25/21) History of colonoscopy History of lobectomy of lung History of local excision of skin lesion 2X Status post appendectomy History of hemiarthroplasty of shoulder Family History Denies family history of Anesthesia complication Bleeding disorder Social History Smoking and tobacco/nicotine status: current every day tobacco/nicotine user (2 packs in the last 6 weeks) cigarettes Packs smoked per day: 0.5 Years cigarettes smoked: 50 [ Other cigarette details: down to 2-3 cig per day] Quit status (tobacco/nicotine): considering quitting Second hand smoke exposure: No Alcohol intake: current Alcohol intake frequency: holidays/special occasions only Alcohol type: beer Substance/Drug Use: never Adopted: No Caregiver/support person: Yes Lives independently: Yes Household members: none Housing: House Marital status: Legally service: Yes branch: [employer] Current occupational status: disabled Current occupational exposures/hazards: No Pets and animals: No Sexually active: No Do you think of yourself as: Straight/Heterosexual Current gender identity: Male Adrianne/Episcopal: Sikh Special adrianne needs: No Agree to transfusion: No Physical Exam 2 Const: COMMON NORMALS: no acute distress GENERAL APPEARANCE: cooperative and comfortable ORIENTATION/CONSCIOUSNESS: Yes awake, Yes oriented to person, Yes oriented to place and Yes oriented to time HENMT: COMMON NORMALS: normocephalic, atraumatic and hearing grossly normal bilaterally HEAD & SCALP: normocephalic and atraumatic Resp: COMMON NORMALS: normal respiratory effort, No retractions, No use of accessory muscles and clear to auscultation bilaterally AUSCULTATION: clear to auscultation bilaterally Cardio: COMMON NORMALS: regular rate, regular rhythm and No murmurs present (Cardio) RATE: regular rate RHYTHM: regular rhythm GI: COMMON NORMALS: Soft to palpation and No hepatosplenomegaly present A USCULTATION: Yes normoactive bowel sounds PALPATION: Yes Soft to palpation, No Tenderness to palpation present (GI), No Guarding due to palpation present (GI) and Yes No hepatosplenomegaly present : COMMON NORMALS: Yes no CVA tenderness BLADDER/KIDNEY EXAM: Yes no CVA tenderness PENIS: normal penis SCROTUM: Yes testes descended bilaterally, No inguinal hernia, Yes Scrotal tenderness present, No edematous and No scrotal swelling Back/Pelvis: COMMON NORMALS: no CVA tenderness Extremity: COMMON NORMALS: normal to inspection, capillary refill normal, no clubbing, cyanosis or edema, no calf tenderness and no pedal edema Neuro: SENSORIUM/ORIENTATION: Yes oriented to person, Yes oriented to place and Yes oriented to time Skin: COMMON NORMALS: no rashes or lesions noted GENERAL SKIN EXAM: no rashes or lesions noted Course 2 Vital Signs: Vital signs: Vital Signs Temperature 98.0 F 12/21/23 16:25 Pulse Rate 64 12/21/23 18:29 Respiratory Rate 18 12/21/23 16:25 Blood Pressure 167/100 12/21/23 18:29 Pulse Oximetry 95 12/21/23 18:29 Oxygen Delivery Me thod Room Air 12/21/23 16:25 MDM - Male Medical Decision Making Ultrasound of testicles negative. Good blood flow. No masses. He does have epididymal cysts these been present for some time I do not think there is a cause of his acute pain. UA was negative white count negative renal function normal patient has no signs of nephrolithiasis. Will discharge patient home with diclofenac and hydrocodone to use as needed. Will have him follow-up with his primary care doctor if has recurrent or persistent pain. Lab Data I reviewed the patient's lab results. 12/21/23 17:21 12/21/23 17:21 Radiology Impressions Scrotum Ultrasound 12/21/23 16:40 IMPRESSION: Bilateral epididymal cysts Laboratory Results WBC 6.63 10^3/uL (3.29-11.43) 12/21/23 17:21 RBC 3.78 10^6/uL (3.85-5.65) L 12/21/23 17:21 Hgb 15.00 g/dL (11.27-16.99) 12/21/23 17:21 Hct 41.1 % (37-53) 12/21/23 17:21 MCV 108.7 fl (82-101) H 12/21/23 17:21 MCH 39.7 pg (27-33) H 12/21/23 17:21 MCHC 36.5 g/dL (30-55) 12/21/23 17:21 RDW 14.8 % (12.1-15.1) 12/21/23 17:21 Plt Count 272 10^3/cmm (157-399) 12/21/23 17:21 MPV 9.4 fL (7.4-10.4) 12/21/23 17:21 Neut % (Auto) 60.0 % 12/21/23 17:21 Lymph % (Auto) 27.1 % 12/21/23 17:21 [place] % (Auto) 8.9 % 12/21/23 17:21 Eos % (Auto) 2.9 % 12/21/23 17:21 Baso % (Auto) 0.6 % 12/21/23 17:21 Neut # (Auto) 3.98 10^3/uL (1.8-7.7) 12/21/23 17:21 Lymph # (Auto) 1.8 10^3/uL (0.8-4.8) 12/21/23 17:21 [place] # (Auto) 0.6 10^3/uL (0.2-0.9) 12/21/23 17:21 Eos # (Auto) 0.2 10^3/uL (0.0-0.8) 12/21/23 17:21 Baso # (Auto) 0.0 10^3/uL (0.0-0.1) 12/21/23 17:21 Nucleated RBC % (auto) 0 % 12/21/23 17:21 Nucleated RBCs # 0.0 /100WBC 12/21/23 17:21 Sodium 137 mmol/L (136-145) 12/21/23 17:21 Potassium 4.2 mmol/L (3.5-5.1) 12/21/23 17:21 Chloride 103 mmol/L (98-107) 12/21/23 17:21 Carbon Dioxide 22 mmol/L (22-29) 12/21/23 17:21 Anion Gap 16.2 (5-19) 12/21/23 17:21 BUN 13 mg/dL (8-23) 12/21/23 17:21 Creatinine 0.7 mg/dL (0.7-1.2) 12/21/23 17:21 GFR Calculation 112.5 mL/min (90-130) 12/21/23 17:21 Glucose 96 mg/dL (65-115) 12/21/23 17:21 Calculated Osmolality 284 mOsm/kg (285-295) L 12/21/23 17:21 Calcium 9.4 mg/dL (8.5-10.5) 12/21/23 17:21 Total Bilirubin 0.2 mg/dL (0.15-1.2) 12/21/23 17:21 AST 15 U/L (0-40) 12/21/23 17:21 ALT 18 U/L (0-41) 12/21/23 17:21 Alkaline Phosphatase 94 U/L (40-130) 12/21/23 17:21 Total Protein 7.3 g/dL (6.6-8.7) 12/21/23 17:21 Albumin 4.6 g/dL (3.5-5.2) 12/21/23 17:21 Globulin 2.7 g/dL (1.3-4.6) 12/21/23 17:21 Urine Color Yellow (Yellow) 12/21/23 17:32 Urine Appearance Clear (CLEAR) 12/21/23 17:32 Urine pH 5.5 (5-7) 12/21/23 17:32 Ur Specific [place] 1.006 (1.005-1.030) 12/21/23 17:32 Urine Protein Negative (Negative) 12/21/23 17:32 Urine Glucose (UA) Negative (Normal) 12/21/23 17:32 Urine Ketones Negative (Negative) 12/21/23 17:32 Urine Blood Negative (Negative) 12/21/23 17:32 Urine Nitrate Negative (Negative) 12/21/23 17:32 Urine Bilirubin Negative (Negative) 12/21/23 17:32 Urine Urobilinogen 0.2 mg/dL (Negative) 12/21/23 17:32 Ur Leukocyte Esterase Negative (Negative) 12/21/23 17:32 Urine RBC 0-2 /hpf (0-2) 12/21/23 17:32 Urine WBC 0-5 /hpf (0-5) 12/21/23 17:32 Ur Squamous Epith Cells 0-5 /hpf (0-5) 12/21/23 17:32 Amorphous Sediment Not Reportable 12/21/23 17:32 Urine Bacteria None seen /hpf (NONE) 12/21/23 17:32 Hyaline Casts 0-4 /lpf H 12/21/23 17:32 All radiology interpretation(s) finalized by discharge Discharge Plan Discharge Patient Disposition: Home Clinical Impression: Pain in right testicle Condition: Stable Prescriptions: New hydrocodone-acetaminophen 5-325 mg tablet 1 tab PO Q6H PRN (Reason: pain) Qty: 10 0RF diclofenac sodium 75 mg tablet,delayed release (DR/EC) 75 mg PO Q12H PRN (Reason: pain) Qty: 20 0RF No Action ibuprofen 200 mg capsule See Rx Instructions PO TID Rx Instructions: 200 mg X 4 (800) orally three times daily; escitalopram oxalate 10 mg tablet 10 mg PO DAILY Qty: 30 1RF Rx Instructions: 1/2 tab at bedtime x 7 days then increase to 1 tab nightly Marijuana PO Rx Instructions: sleep aid and appetite fluticasone propion-salmeterol [Advair HFA] 115-21 mcg/actuation HFA aerosol inhaler 2 puff inhalation BID Qty: 12 3RF hydroxyurea 500 mg capsule See Rx Instructions .ROUTE .COMPLEX Qty: 60 0RF Dose Instruction: TAKE ONE CAPSULE BY MOUTH TWICE DAILY ON MONDAY THROUGH MONDAY; TAKE ONCE DAILY ON MONDAY AND MONDAY Rx Instructions: TAKE ONE CAPSULE BY MOUTH TWICE DAILY ON MONDAY THROUGH MONDAY; TAKE ONCE DAILY ON MONDAY AND MONDAY Discharge Orders: Discharge ED (Routine); Ordered 12/21/23 Ordered By: Jerry Garay Referrals: Gypsy Gaitan FNP-C [Primary Care Provider] - Discharge Diet: Usual diet Discharge Activity: Increase activity as tolerated Patient Instructions: Opioid Safety, Pain Management Activity Restrictions/Additional Instructions: Thank you for choosing [facility] for your healthcare needs today. It is very important that you follow up as instructed or that you return to the Emergency Department should you have concerns or if your condition changes or worsens in any way. You were seen in the emergency room with testicular pain ultrasound and urine were normal. Recommend use diclofenac 1 p.o. every 12 hours as needed hydrocodone for uncontrolled pain. If pain persist follow-up with primary care doctor for referral to urology. Coding Level of Care Code ED Flight Inspector for Jose Eduardo Rucker
[2023-12-21 17:35] LABS: Basophils % 0.6 %; Eosinophils # 0.2 10^3/uL (0.0-0.8); Eosinophils % 2.9 %; Hematocrit 41.1 % (37-53); Lymphocytes # 1.8 10^3/uL (0.8-4.8); Lymphocytes % 27.1 %; Mean Corpuscular HGB Conc 36.5 g/dL (30-55); Mean Corpuscular Hemoglobin 39.7 pg (27-33); Mean Corpuscular Volume 108.7 fl (82-101); Mean Platelet Volume 9.4 fL (7.4-10.4); Monocytes # 0.6 10^3/uL (0.2-0.9); Monocytes % 8.9 %; Neutrophils # 3.98 10^3/uL (1.8-7.7); Nucleated Red Blood Cells % 0 %; Platelet Count 272 10^3/cmm (157-399); Red Blood Count 3.78 10^6/uL (3.85-5.65); Red Cell Distribution Width 14.8 % (12.1-15.1); White Blood Count 6.63 10^3/uL (3.29-11.43)
[2023-12-21 17:41] LABS: Charge for UA Resulting for Rev
[2023-12-21 17:44] LABS: Bilirubin Urine Negative (Negative); Blood Urine Negative (Negative); Glucose Urine UA Negative (Normal); Ketones Urine Negative (Negative); Leukocyte Esterase Urine Negative (Negative); Nitrate Urine Negative (Negative); Protein Urine Negative (Negative); Specific Gravity, Urine 1.006 (1.005-1.030); Urine Appearance Clear (CLEAR); Urine Color Yellow (Yellow); Urobilinogen Urine 0.2 mg/dL (Negative); pH Urine 5.5 (5-7)
[2023-12-21 17:47] LABS: Alanine Aminotransferase 18 U/L (0-41); Albumin Level 4.6 g/dL (3.5-5.2); Alkaline Phosphatase 94 U/L (40-130); Anion Gap 16.2 (5-19); Aspartate Amino Transferase 15 U/L (0-40); Blood Urea Nitrogen 13 mg/dL (8-23); Calcium 9.4 mg/dL (8.5-10.5); Carbon Dioxide 22 mmol/L (22-29); Chloride 103 mmol/L (98-107); Globulin 2.7 g/dL (1.3-4.6); Glomerular Filtration Rate 112.5 mL/min (90-130); Glucose 96 mg/dL (65-115); Osmolality Calculated 284 mOsm/kg (285-295); Potassium 4.2 mmol/L (3.5-5.1); Sodium 137 mmol/L (136-145); Total Bilirubin 0.2 mg/dL (0.15-1.2); Total Protein 7.3 g/dL (6.6-8.7)
[2023-12-21 17:49] LABS: Bacteria Urine None Seen /hpf; Hyaline Casts Urine 0-4 /lpf; RBC Urine 0-2 /hpf (0-2); Squamous Epithelial Cell Urine 0-5 /hpf (0-5); WBC Urine 0-5 /hpf (0-5)
[2023-12-21 18:00] VITALS: BP 167/100; PULSE 64; O2SAT 95
[2023-12-21] MEDS: ketorolac 30 mg/mL INJ IVP (18:16)
[2023-12-21 18:29] VITALS: BP 167/100; PULSE 64; O2SAT 95
--- NOTE | 2023-12-21 18:29 | PC.NURSE ---
pt requesting to go home with elevated b/p.
== END 2023-12-21 18:29 | disposition home or self-care (01) ==
PROVIDERS: Emergency Provider Family Medicine; PCP Nurse Practitioner Family
DX: N50.811 Right testicular pain (principal); F17.210 Nicotine dependence, cigarettes, uncomplicated; E78.5 Hyperlipidemia, unspecified
CPT/HCPCS: 36415; 76870; 80053; 81003; 81015; 85025; 96374; 99284; J1885

== ENCOUNTER 2024-01-18 10:56 | Oncology outpatient (recurring) (ONCR) | payer MEDICARE, MEDICAID, SELFPAY ==
[2024-01-18 11:44] LABS: Basophils % 0.6 %; Eosinophils # 0.1 10^3/uL (0.0-0.8); Hematocrit 42.5 % (37-53); Lymphocytes # 1.3 10^3/uL (0.8-4.8); Lymphocytes % 20.3 %; Mean Corpuscular HGB Conc 35.5 g/dL (30-55); Mean Corpuscular Hemoglobin 38.7 pg (27-33); Mean Platelet Volume 9.8 fL (7.4-10.4); Monocytes # 0.4 10^3/uL (0.2-0.9); Monocytes % 6.6 %; Neutrophils # 4.54 10^3/uL (1.8-7.7); Nucleated Red Blood Cells % 0 %; Platelet Count 253 10^3/cmm (157-399); White Blood Count 6.49 10^3/uL (3.29-11.43)
[2024-01-18 12:03] LABS: Alanine Aminotransferase 17 U/L (0-41); Albumin Level 4.2 g/dL (3.5-5.2); Alkaline Phosphatase 83 U/L (40-130); Anion Gap 17.9 (5-19); Aspartate Amino Transferase 17 U/L (0-40); Blood Urea Nitrogen 17 mg/dL (8-23); Calcium 8.6 mg/dL (8.5-10.5); Carbon Dioxide 21 mmol/L (22-29); Chloride 105 mmol/L (98-107); Globulin 2.8 g/dL (1.3-4.6); Glomerular Filtration Rate 96.4 mL/min (90-130); Glucose 121 mg/dL (65-115); Osmolality Calculated 293 mOsm/kg (285-295); Potassium 3.9 mmol/L (3.5-5.1); Sodium 140 mmol/L (136-145); Total Bilirubin 0.5 mg/dL (0.15-1.2)
== END 2024-01-22 23:59 | disposition home or self-care (01) ==
PROVIDERS: Nurse Practitioner Family; PCP Nurse Practitioner Family; Visit Provider Internal Medicine Medical Oncology
DX: D45 Polycythemia vera (principal); F17.210 Nicotine dependence, cigarettes, uncomplicated; Z92.3 Personal history of irradiation; F41.9 Anxiety disorder, unspecified; M54.50 Low back pain, unspecified; R91.1 Solitary pulmonary nodule; Z79.891 Long term (current) use of opiate analgesic; Z85.828 Personal history of other malignant neoplasm of skin; Z85.118 Personal history of other malignant neoplasm of bronchus and lung; Z79.64 Long term (current) use of myelosuppressive agent; L27.1 Localized skin eruption due to drugs and medicaments taken internally; T45.1X5A Adverse effect of antineoplastic and immunosuppressive drugs, initial encounter
CPT/HCPCS: 36415; 80053; 85025; 99215

== ENCOUNTER 2024-02-08 10:15 | Oncology outpatient (recurring) (ONCR) | payer MEDICARE, MEDICAID, SELFPAY ==
[2024-02-05 13:49] LABS: Basophils % 0.4 %; Eosinophils # 0.2 10^3/uL (0.0-0.8); Eosinophils % 2.3 %; Hematocrit 41.9 % (37-53); Lymphocytes # 1.7 10^3/uL (0.8-4.8); Lymphocytes % 22.4 %; Mean Corpuscular HGB Conc 35.8 g/dL (30-55); Mean Corpuscular Hemoglobin 37.7 pg (27-33); Mean Corpuscular Volume 105.3 fl (82-101); Mean Platelet Volume 9.7 fL (7.4-10.4); Monocytes # 0.5 10^3/uL (0.2-0.9); Neutrophils % 68.2 %; Nucleated Red Blood Cells % 0 %; Platelet Count 300 10^3/cmm (157-399); Red Blood Count 3.98 10^6/uL (3.85-5.65); Red Cell Distribution Width 12.5 % (12.1-15.1); White Blood Count 7.47 10^3/uL (3.29-11.43)
--- NOTE | 2024-02-08 10:15 | MR_ITS ---
WS: [id number] MRI LUMBAR SPINE NONCONTRAST TECHNIQUE: Sagittal T1, T2 and STIR imaging. Axial T1 and T2 imaging. CLINICAL INFORMATION: persistent and worsening back pain with gait changes COMPARISON: MRI 2020 FINDINGS: Mild lumbar curve. Moderate spondylitic changes. Disc space narrowing L2-L3 and L4-L5 with endplate d egenerative changes. Degenerative disc disease progressed since 2020. L1-L2: Mild disc bulge with mild facet arthropathy. Spinal canal and foramen are patent. L2-L3: Shallow central disc protrusion. Mild to moderate central canal stenosis. Impingement traversi ng L3 nerve roots bilaterally. Moderate facet arthropathy. Moderate RIGHT and no significant LEFT for aminal narrowing. L3-L4: Mild disc bulging with narrowing of the RIGHT greater than LEFT subarticular recess. Moderate RIGHT foraminal narrowing. LEFT foramen is patent. L4-L5: Mild disc bulging with a LEFT subarticular protrusion. Impingement traversing LEFT L5 nerve ro ot with severe LEFT foraminal narrowing. Impingement exiting LEFT L5 nerve root. Moderate facet arthr opathy worse on the LEFT. L5-S1: Mild disc bulging with osteophytic ridging. Slight effacement of thecal sac. Moderate facet ar thropathy. Mild LEFT and moderate RIGHT foraminal narrowing. Visualized pelvic bony structures: Normal. Paravertebral soft tissues: Normal. MR/MR lumbar spine wo con* [id number] IMPRESSION: 1. Mild lumbar curve. No acute compression. 2. Mild to moderate central canal stenosis L2-3 with impingement subarticular recess bilaterally. This is progressed compared to previous. 3. Mild central canal stenosis L3-4 with narrowing of the subarticular recess bilaterally slightly progressed compared to previous. 4. LEFT subarticular disc protrusion L4-5 impinges the traversing LEFT L5 nerv e root in the subarticular recess. This is progressed compared to previous. Sev ere LEFT L4-5 foraminal narrowing. 5. Moderate RIGHT L5-S1 foraminal narrowing.
--- NOTE | 2024-02-08 12:00 | CTR_ITS ---
PROCEDURE INFORMATION: Exam: CT Chest Without Contrast; Diagnostic Exam date and time: 02/08/2024 11:16 AM Age: 68 years old Clinical indication: Condition or disease; Lung condition and disease; Cancer of the lung; Unspecified; Primary cancer: Lung, lymphoma; Prior surgery; Surgery date: 6+ months; Surgery type: Left lung; Additional info: 4 month followup of September 2023 exam TECHNIQUE: Imaging protocol: Diagnostic computed tomography of the chest without contrast. Radiation optimization: All CT scans at this facility use at least one of these dose optimization techniques: automated exposure control; mA and/or kV adjustment per patient size (includes targeted exams where dose is matched to clinical indication); or iterative reconstruction. COMPARISON: CT chest wo con [id number] 10/04/2023 10:12 AM RADIATION DOSE METRICS: Total DLP (mGy-cm): 414.24 FINDINGS: Lungs: Status post left upper lobectomy. Moderate emphysematous change. Unchanged subpleural right lower lobe nodule measuring about 5 mm on today's examination. Left lower lobe granuloma. Enlarging right upper lobe mixed density nodule with architectural distortion measuring 11 x 8 mm on today's examination, previously measuring about 8 x 8 mm (series 3, image 24). Pleural spaces: Unremarkable. No pneumothorax. No pleural effusion. Heart: Unremarkable. No cardiomegaly. No pericardial effusion. Lymph nodes: Unremarkable. No enlarged lymph nodes. Vasculature: Unremarkable. No aortic aneurysm. Gallbladder and biliary ducts: Cholelithiasis without evidence of cholecystitis. Bones/joints: Diffuse degenerative change of the visualized osseous structures. Soft tissues: Unremarkable. CT/CT chest wo con [id number] IMPRESSION: 1. Slightly enlarging right upper lobe mixed density nodule with architectural distortion. Recommend pulmonary consultation for further workup. 2. Stable residual findings as above. COMMENTS: The presence of pulmonary emphysema on CT is an independent risk factor for lung cancer. In the absence of a history or active diagnosis of lung cancer, it is recommended that this patient with emphysema be evaluated for enrollment in a low dose CT lung cancer screening program.
== END 2024-02-22 23:59 | disposition home or self-care (01) ==
LOC: RAD 02-09 00:01 → ONCMED 02-22 15:35
PROVIDERS: Nurse Practitioner Family; PCP Nurse Practitioner Family; Visit Provider Nurse Practitioner
DX: C34.12 Malignant neoplasm of upper lobe, left bronchus or lung (principal); D47.3 Essential (hemorrhagic) thrombocythemia; R91.1 Solitary pulmonary nodule; M48.062 Spinal stenosis, lumbar region with neurogenic claudication; M51.370 Other intervertebral disc degeneration, lumbosacral region with discogenic back pain only; M47.897 Other spondylosis, lumbosacral region; D45 Polycythemia vera; Z53.9 Procedure and treatment not carried out, unspecified reason
CPT/HCPCS: 36415; 71250; 72110; 72148; 80053; 81001; 85025; 99204

== ENCOUNTER → 2024-02-09 10:03 | Outpatient (BNVA) | payer MEDICARE, MEDICAID, SELFPAY | PROVIDERS: PCP Nurse Practitioner Family; Visit Provider Family Medicine | DX: Z01.818 Encounter for other preprocedural examination (principal) | CPT/HCPCS: 93005 ==

== ENCOUNTER 2024-02-19 07:40 | Day surgery (SDC) | payer MEDICARE, MEDICAID, SELFPAY ==
[2024-02-19] VITALS (11 sets, daily range): BP systolic 122–163; BP diastolic 76–94; PULSE 67–82; RESP 14–21; TEMP 36–36.5; O2SAT 92–100; BMI 25.5
--- NOTE | 2024-02-19 | XR_ITS ---
WS: [id number] C-ARM RADIOGRAPHS LUMBAR SPINE; 2 IMAGES HISTORY: PING PICS COMPARISON: None available. Intraoperative imaging during decompression surgery. There is a marker indicating the LEFT L4-5 level . XR/XR lumbar spine 2-3V* [id number] IMPRESSION: Intraoperative imaging during spinal decompression.
[2024-02-19] MEDS: sodium chloride 0.9% 1,000 ML 30 ML IV (08:39)
--- NOTE | 2024-02-19 09:01 | ANES.PREANE2 ---
Pre-Anesthetic Assessment Height/Weight: Height 5 ft 8 in Weight 168 lb Temp Pulse Resp BP Pulse Ox O2 Del Method 97.5 F L 72 18 163/94 98 Room Air 02/19/24 07:55 02/19/24 07:55 02/19/24 07:55 02/19/24 07:55 02/19/24 07:55 02/19/24 08:11 Preop Diagnosis: Lumbar stenosis with neurogenic claudication Operation Date: 02/19/24 09:25 Proposed Procedures p Lumbar Spine Decompression Lumbar Decompression(Not Applicable) - Delbert Garvin, DO Was Beta Mary taken within 24 hours: N/A Was Clonidine taken within 24 hours: N/A Last intake: Intake Last Liquid Date 02/18/24 Last Liquid Time 18:00 Last Solid Date 02/18/24 Last Solid Time 18:00 Social Tobacco and No alcohol occasional mariujuana Exam alert, oriented x 3 and regular rate & rhythm diminished breath sounds bilaterally Airway Submandibular: within normal limits Cervical ROM: within normal limits Mallampati: Class II Dentition: full Anesthetic Plan ASA status: 3 Anesthesia: General Other: No prior issues with anesthesia NPO since yesterday History of COPD and lung cancer S/p upper left lobectomy 4 years ago. On chronic inhalers. No home O2 Patient has been undergoing radiation to the face for basal cell carcinoma but has had to stop this due to getting cataracts from the radiation Preop BP 163/94. No home BP meds Labs 02/08/2024 reviewed and acceptable for procedure EKG sinus rhythm Plan for GETA Medications/Allergies Home Medications Medication Instructions Recorded Confirmed Last Taken Type ibuprofen 200 mg capsule 800 mg PO TID 12/20/22 02/15/24 02/15/24 History Marijuana PO 02/23/23 02/08/24 Unknown History fluticasone propionate 115 2 puff inhalation BID #12 grams 05/29/23 02/15/24 02/19/24 Rx mcg-salmeterol 21 mcg/actuation HFA inhaler (Advair HFA) Allergies Allergy/AdvReac Type Severity Reaction Status Date / Time doxycycline Allergy Mild ADR-Abdominal Verified 02/09/24 10:32 Pain Current Medications Generic Name Dose Route Start Last Admin Trade Name Freq PRN Reason Stop Dose Admin Sodium Chloride 1,000 mls @ 30 mls/hr 02/19/24 07:45 02/19/24 08:39 Sodium Chloride 0.9% IV 02/20/24 07:44 30 mls/hr .Q24H MARIA INES Administration PFSH Anesthesia Medical History Polycythemia Skin lesion Hyperlipidemia History of basal cell carcinoma (BCC) Surgical History H/O local excision of skin lesion (11/25/21) left side of neck Port-A-Cath in place (11/25/21) History of colonoscopy History of lobectomy of lung History of local excision of skin lesion 2X Status post appendectomy History of hemiarthroplasty of shoulder Family History Denies family history of Anesthesia complication Bleeding disorder Social History Smoking and tobacco/nicotine status: current some day tobacco/nicotine user cigarettes Packs smoked per day: 0.5 Years cigarettes smoked: 50 [ Other cigarette details: down to 2-3 cig per day] Quit status (tobacco/nicotine): considering quitting Second hand smoke exposure: No Alcohol intake: current Alcohol intake frequency: holidays/special occasions only Alcohol type: beer Substance/Drug Use: never Adopted: No Caregiver/support person: Yes Lives independently: Yes Household members: none Housing: House Marital status: Legally service: Yes branch: [employer] Current occupational status: disabled Current occupational exposures/hazards: No Pets and animals: No Sexually active: No Do you think of yourself as: Straight/Heterosexual Current gender identity: Male Adrianne/Religious: Pentecostalism Special adrianne needs: No Agree to transfusion: No Data Anesthesia Cardiac Studies: Sestamibi Stress Test (Cardiology) 12/06/21
[2024-02-19] MEDS: fentaNYL 50 mcg/mL INJ 2mL IVP (09:10)
[2024-02-19] MEDS: ceFAZolin 2,000 mg SDV 2000 MG IVP (09:25)
--- NOTE | 2024-02-19 09:28 | W.PM.OPSUD ---
Surgery/Procedure H&P Update DATE OF PROCEDURE: February 19, 2024 DATE H&P PERFORMED: 02/09/24 H&P UPDATE INFORMATION: I have reviewed H&P completed within last 30 days, I have examined patient prior to procedure and No changes to prior documentation PREOP DIAGNOSIS: Lumbar stenosis with neurogenic claudication PLANNED PROCEDURE: Operation Date: 02/19/24 09:25 Proposed Procedures p Lumbar Spine Decompression Lumbar Decompression(Not Applicable) - Delbert Garvin DO
[2024-02-19] MEDS: lidocaine-epi 1% 20 mL INJ INJECTION (10:01)
--- NOTE | 2024-02-19 10:29 | P.OP_ITS ---
Operative Report Date of procedure: February 19, 2024 Pre-op diagnosis: Lumbar stenosis neurogenic claudication Post-op diagnosis: same Procedure done: L4-5 laminectomy with partial facetectomy Surgeon: Delbert Garvin DO Estimated blood loss (mL): 10 Procedure: L4-5 laminectomy with partial facetectomy Patient is brought to the operative suite. After undergoing anesthesia they are placed in the prone position. All areas of impingement are well padded. Patient is then prepped and draped in the normal sterile fashion. A skin incision is made over the L4-5 level. This is confirmed under c-arm guidance. A series of dilators are passed and the tubular retractor is docked on the L4 lamina. A bovie is used to clear the soft tissue off the lamina and the L 4/5 facet joint. A high speed ruben is then used to perform the laminectomy and take down the medial aspect of the L 4/5 facet joint. A kerrison rongeure was then used to take down the remaining lamina and smooth the edge of the laminectomy up to the point where the ligamentum flavum attaches. Attention was then brought to the medial aspect of the facet joint. The remaining medial aspect of the superior and inferior aspect of the facet joint were taken down with the kerrison from the pedicle of L4 to L 5. The facet chris int had significant hypertrophy. Attention was then brought to the Ligamentum Flavum. The ligament was taken down from the lamina of L4 to L5 and out medially to the remaining facet joint. The ligament was thick. The dura was then exposed. The dura was in good repair. The L4 nerve was then traced with a curette out the L4/5 foramen and found to be adequately decompressed. The L5 nerve was traced with a curette around the L5 pedicle. The lateral recess was opened with a kerrison helping to further decompress the L5 nerve. Wound is then irrigated copiously with saline and surgiflo is used to stop any bleeding. The tubular retractor is removed and the wound is closed with vicryl and monocryl suture. Glue is then used to protect the wound. A sterile dressing is then placed. Patient was then placed in the supine position and transferred to the PACU in stable condition.
--- NOTE | 2024-02-19 11:20 | SUR.PHASEII ---
11:15 ROM, SENSATION, AND PULSES IN ALL 4 EXTREMITIES.
--- NOTE | 2024-02-19 12:00 | ANE.PACU2 ---
Inpatient post-anesthesia follow up: Airway intact: Yes Vital signs: Temperature 97.7 F Pulse Rate 69 Respiratory Rate 16 Blood Pressure 139/76 Pulse Oximetry 98 Oxygen Delivery Me thod Room Air Oxygen Flow Rate Fraction of Inspir ed Oxygen Hydration adequate: Yes Nausea and vomiting: No Pain level: 1 Mental status: Baseline
--- NOTE | 2024-02-19 12:00 | SUR.PHASEII ---
surgical dressing dry and intact.
== END 2024-02-19 12:00 | disposition home or self-care (01) ==
PROVIDERS: PCP Nurse Practitioner Family; Visit Provider Orthopaedic Surgery
PROC: (CPT 63005; principal; 2024-02-19 09:25)
DX: M48.062 Spinal stenosis, lumbar region with neurogenic claudication (principal); J44.9 Chronic obstructive pulmonary disease, unspecified; Z85.118 Personal history of other malignant neoplasm of bronchus and lung; E78.5 Hyperlipidemia, unspecified; F17.210 Nicotine dependence, cigarettes, uncomplicated; Z90.2 Acquired absence of lung [part of]
CPT/HCPCS: 63047; 72100; 76000; J0690; J1100; J2405; J2704; J2710; J3010; J3490; J7030

== ENCOUNTER → 2024-02-29 12:48 | Outpatient (BNVA) | payer MEDICARE, MEDICAID, SELFPAY | PROVIDERS: PCP Nurse Practitioner Family; Visit Provider Orthopaedic Surgery | DX: Z98.890 Other specified postprocedural states (principal) | CPT/HCPCS: 99024 ==

== ENCOUNTER 2024-03-14 08:30 | Oncology outpatient (recurring) (ONCR) | payer MEDICARE, MEDICAID, SELFPAY ==
[2024-02-27 09:24] LABS: Basophils # 0.1 10^3/uL (0.0-0.1); Basophils % 0.6 %; Eosinophils # 0.2 10^3/uL (0.0-0.8); Eosinophils % 2.4 %; Hematocrit 46.8 % (37-53); Lymphocytes # 1.6 10^3/uL (0.8-4.8); Lymphocytes % 19.4 %; Mean Corpuscular HGB Conc 34.8 g/dL (30-55); Mean Corpuscular Hemoglobin 35.5 pg (27-33); Mean Platelet Volume 9.8 fL (7.4-10.4); Monocytes # 0.6 10^3/uL (0.2-0.9); Neutrophils # 5.74 10^3/uL (1.8-7.7); Neutrophils % 69.3 %; Nucleated Red Blood Cells % 0 %; Platelet Count 362 10^3/cmm (157-399); Red Blood Count 4.59 10^6/uL (3.85-5.65); Red Cell Distribution Width 12.2 % (12.1-15.1); White Blood Count 8.29 10^3/uL (3.29-11.43)
[2024-02-27 09:38] LABS: Alanine Aminotransferase 19 U/L (0-41); Albumin Level 4.3 g/dL (3.5-5.2); Alkaline Phosphatase 118 U/L (40-130); Anion Gap 16.8 (5-19); Aspartate Amino Transferase 20 U/L (0-40); Blood Urea Nitrogen 15 mg/dL (8-23); Calcium 8.5 mg/dL (8.5-10.5); Carbon Dioxide 23 mmol/L (22-29); Chloride 103 mmol/L (98-107); Creatinine Clr Calc Pharmacy 90.8733; Globulin 3.2 g/dL (1.3-4.6); Glomerular Filtration Rate 112.5 mL/min (90-130); Glucose 107 mg/dL (65-115); Osmolality Calculated 287 mOsm/kg (285-295); Potassium 4.8 mmol/L (3.5-5.1); Sodium 138 mmol/L (136-145); Total Bilirubin 0.5 mg/dL (0.15-1.2); Total Protein 7.5 g/dL (6.6-8.7)
[2024-03-14 09:16] LABS: Basophils # 0.1 10^3/uL (0.0-0.1); Basophils % 0.8 %; Eosinophils # 0.2 10^3/uL (0.0-0.8); Eosinophils % 2.3 %; Hematocrit 47.7 % (37-53); Lymphocytes # 1.7 10^3/uL (0.8-4.8); Lymphocytes % 19.1 %; Mean Corpuscular HGB Conc 34.4 g/dL (30-55); Mean Corpuscular Hemoglobin 34.2 pg (27-33); Mean Corpuscular Volume 99.6 fl (82-101); Monocytes # 0.6 10^3/uL (0.2-0.9); Monocytes % 6.3 %; Neutrophils # 6.45 10^3/uL (1.8-7.7); Neutrophils % 70.6 %; Nucleated Red Blood Cells % 0 %; Platelet Count 397 10^3/cmm (157-399); Red Blood Count 4.79 10^6/uL (3.85-5.65); Red Cell Distribution Width 12.3 % (12.1-15.1); White Blood Count 9.12 10^3/uL (3.29-11.43)
[2024-03-14 09:27] LABS: Alanine Aminotransferase 16 U/L (0-41); Albumin Level 4.5 g/dL (3.5-5.2); Alkaline Phosphatase 102 U/L (40-130); Anion Gap 14.3 (5-19); Aspartate Amino Transferase 17 U/L (0-40); Blood Urea Nitrogen 13 mg/dL (8-23); Calcium 9.2 mg/dL (8.5-10.5); Carbon Dioxide 23 mmol/L (22-29); Chloride 103 mmol/L (98-107); Chol HDL Ratio 3.44 mg/dL (1.0-5.00); Cholesterol 165 mg/dL (0-200); Creatinine Clr Calc Pharmacy 90.1834; Globulin 2.7 g/dL (1.3-4.6); Glomerular Filtration Rate 96.4 mL/min (90-130); Glucose 92 mg/dL (65-115); HDL Cholesterol 48 mg/dL (60-100); LDL Cholesterol Calculated 102 mg/dL (50-129); Osmolality Calculated 282 mOsm/kg (285-295); Potassium 4.3 mmol/L (3.5-5.1); Sodium 136 mmol/L (136-145); Total Bilirubin 0.6 mg/dL (0.15-1.2); Total Protein 7.2 g/dL (6.6-8.7); Triglycerides 75 mg/dL (0-150); VLDL Cholestrol Calculation 15 mg/dL (0-30)
--- NOTE | 2024-03-15 14:30 | PETR_ITS ---
PROCEDURE INFORMATION: Exam: PET/CT Skull Base to Mid-thigh Exam date and time: 03/15/2024 2:48 PM Age: 68 years old Clinical indication: Abnormal findings; Right lung nodule; Prior surgery; Surgery date: 6+ months; Surgery type: Left lung; Patient HX: History of lung cancer and lymphoma; Additional info: Abnormal CT; Right lung nodule LABS AND CLINICAL REPORTS: Glucose: 75 mg/dl Treatment strategy for malignancy (PET staging): Restaging (PS) TECHNIQUE: Imaging protocol: Following at least four-hour fasting and following the injection of radiopharmaceutical, low dose CT images were obtained. Then, PET images were obtained. Attenuation corrected images were constructed using the CT scan. Fused images of PET and CT were reviewed. The standardized uptake values (SUV) reported below are maximum values within a region of interest, expressed in gm/ml. Exam includes orbital meatal line to mid-thigh. SUV normalization method: BodyWeight Radiopharmaceutical: 11.53 mCi F-18 FDG (Fluorodeoxyglucose), IV. Time of imaging post radiopharmaceutical administration: 45 minutes Injection site: left forearm COMPARISON: 1. CT chest wo con [id number] 10/04/2023 10:12 AM 2. PT PET skull to thigh INIT [id number] 06/06/2023 2:[address] chest wo con [id number] 02/08/2024 11:16 AM FINDINGS: Brain: Visualized brain has normal physiologic uptake. Pharynx: No abnormal uptake. Larynx: No abnormal uptake. Lungs, pleura and trachea: Mild upper lung predominant emphysematous change. 10 x 8 mm right upper lobe nodule on axial image 244 shows SUV max 7.6. Non FDG avid subpleural posteromedial basal right lower lobe nodule measures 6 mm on axial image 198, intervally stable, previously 4.5 mm in September 2023 and not present in May 2023. Non FDG avid 5 mm nodule at the right middle lobe on axial image 217 is stable. Stable left lung postsurgical scarring. Heart: Normal physiologic uptake. Mediastinal space: No abnormal uptake. Liver: No abnormal uptake. Gallbladder and biliary ducts: No abnormal uptake. Cholelithiasis. Pancreas: No abnormal uptake. Spleen: No abnormal uptake. Adrenal glands: No abnormal uptake. Kidneys and ureters: Normal physiologic uptake. Stomach and bowel: No abnormal uptake. Colonic diverticulosis without findings of diverticulitis. Vasculature: No abnormal uptake. Mild systemic atherosclerotic calcification without aortic aneurysm. Lymph nodes: No abnormal uptake. No lymphadenopathy in the head, neck, chest, abdomen, pelvis, and extremities. Skeleton: Mild left low back FDG uptake is likely postsurgical in the setting of interval left L4 laminotomy. Degenerative change along the spine. Soft tissues: Focal dermal thickening at the lower right face superficial to the mandible with FDG uptake showing SUV max 7.2 on axial image 306. Small fat containing left inguinal hernia. METRICS: Mediastinal blood pool: SUV mean 2.2 Liver uptake: SUV mean 2.5 PET/PET skull to thigh SUBS [id number] IMPRESSION: 1. FDG avid 10 x 8 mm right upper lobe nodule suspicious for malignancy. 2. Nonspecific 6 mm subpleural posteromedial basal right lower lobe nodule developed and growing since May 2023. No FDG avidity but below size threshold for accurate assessment. 3. Focal FDG avid dermal thickening at the lower right face superficial to the mandible may be inflammatory or neoplastic, correlate with clinical exam. 4. Additional chronic and incidental findings as above, to include evidence of recent lower lumbar spine surgery, cholelithiasis and colonic diverticulosis.
== END 2024-03-23 23:59 | disposition home or self-care (01) ==
LOC: RAD 03-15 13:23 → ONCMED 03-15 13:24
PROVIDERS: Nurse Practitioner Family; PCP Nurse Practitioner Family; Visit Provider Nurse Practitioner
DX: D45 Polycythemia vera (principal); R91.8 Other nonspecific abnormal finding of lung field; R23.8 Other skin changes; K80.20 Calculus of gallbladder without cholecystitis without obstruction; K57.90 Diverticulosis of intestine, part unspecified, without perforation or abscess without bleeding
CPT/HCPCS: 36415; 78815; 80053; 80061; 85025; 99214; 99215; A9552

== ENCOUNTER → 2024-03-28 08:15 | Outpatient (BNVA) | payer MEDICARE, MEDICAID, SELFPAY | PROVIDERS: PCP Nurse Practitioner Family; Visit Provider Orthopaedic Surgery | DX: Z98.890 Other specified postprocedural states (principal) | CPT/HCPCS: 99024 ==

== ENCOUNTER 2024-04-09 08:01 | Oncology outpatient (recurring) (ONCR) | payer MEDICARE, MEDICAID, SELFPAY ==
[2024-04-09 09:01] LABS: Basophils # 0.1 10^3/uL (0.0-0.1); Basophils % 0.7 %; Eosinophils # 0.2 10^3/uL (0.0-0.8); Eosinophils % 2.2 %; Hematocrit 50.5 % (37-53); Lymphocytes # 1.6 10^3/uL (0.8-4.8); Lymphocytes % 17.1 %; Mean Corpuscular HGB Conc 34.5 g/dL (30-55); Mean Corpuscular Volume 95.6 fl (82-101); Mean Platelet Volume 9.7 fL (7.4-10.4); Monocytes # 0.8 10^3/uL (0.2-0.9); Monocytes % 7.9 %; Neutrophils % 71.2 %; Nucleated Red Blood Cells % 0 %; Platelet Count 388 10^3/cmm (157-399); Red Blood Count 5.28 10^6/uL (3.85-5.65); Red Cell Distribution Width 12.5 % (12.1-15.1); White Blood Count 9.55 10^3/uL (3.29-11.43)
[2024-04-09 09:14] LABS: Alanine Aminotransferase 17 U/L (0-41); Albumin Level 4.3 g/dL (3.5-5.2); Alkaline Phosphatase 92 U/L (40-130); Anion Gap 15.7 (5-19); Aspartate Amino Transferase 17 U/L (0-40); Blood Urea Nitrogen 20 mg/dL (8-23); Calcium 9.2 mg/dL (8.5-10.5); Carbon Dioxide 20 mmol/L (22-29); Chloride 107 mmol/L (98-107); Creatinine Clr Calc Pharmacy 90.8733; Globulin 2.7 g/dL (1.3-4.6); Glomerular Filtration Rate 96.4 mL/min (90-130); Glucose 96 mg/dL (65-115); Osmolality Calculated 288 mOsm/kg (285-295); Potassium 4.7 mmol/L (3.5-5.1); Sodium 138 mmol/L (136-145); Total Bilirubin 0.4 mg/dL (0.15-1.2)
== END 2024-04-23 23:59 | disposition home or self-care (01) ==
PROVIDERS: PCP Nurse Practitioner Family; Visit Provider Nurse Practitioner
DX: D45 Polycythemia vera (principal); F17.210 Nicotine dependence, cigarettes, uncomplicated; Z79.64 Long term (current) use of myelosuppressive agent; Z92.3 Personal history of irradiation; Z90.2 Acquired absence of lung [part of]; Z85.828 Personal history of other malignant neoplasm of skin; Z85.118 Personal history of other malignant neoplasm of bronchus and lung; R91.1 Solitary pulmonary nodule; M51.16 Intervertebral disc disorders with radiculopathy, lumbar region; Z79.891 Long term (current) use of opiate analgesic
CPT/HCPCS: 36415; 80053; 85025; 99214